=== PATIENT | female | born 1945 | race Caucasian/White ===

== ENCOUNTER 2017-03-05 08:33 | Outpatient (CLI) | payer MEDICARE, OTHER ==
[2017-03-05 08:32] VITALS: BP 164/76
[~2017-03-05 08:33] MED LIST: ACET-812 PO; EPOE1000; FLO0.4C PO; LOSA25TA21 PO; METO50TA16 PO; OMEP-50 PO; SODI650T29 PO; ZOLP10TA5 PO
== END 2017-03-05 09:30 | disposition home or self-care (01) ==
LOC: ORTHO 08:33
PROVIDERS: ATTEND Nurse Practitioner Family
DX: S52.502D Unspecified fracture of the lower end of left radius, subsequent encounter for closed fracture with routine healing (principal); M21.832 Other specified acquired deformities of left forearm; D64.9 Anemia, unspecified; I12.9 Hypertensive chronic kidney disease with stage 1 through stage 4 chronic kidney disease, or unspecified chronic kidney disease; N18.9 Chronic kidney disease, unspecified; Z88.2 Allergy status to sulfonamides; Z88.5 Allergy status to narcotic agent; Z91.15 Patient's noncompliance with renal dialysis; Z99.2 Dependence on renal dialysis; X58.XXXD Exposure to other specified factors, subsequent encounter
CPT/HCPCS: 73110

== ENCOUNTER 2017-06-05 16:05 | Outpatient (CLI) | payer MEDICARE, OTHER | END 2017-06-05 23:59 | disposition home or self-care (01) | LOC: VAS 16:05 | PROVIDERS: ATTEND Family Medicine | DX: M79.89 Other specified soft tissue disorders (principal); R60.0 Localized edema; Z86.718 Personal history of other venous thrombosis and embolism | CPT/HCPCS: 93971 ==

== ENCOUNTER 2017-10-12 10:13 | Emergency (ER) | payer MEDICARE, OTHER ==
[~2017-10-12] VITALS: Ht 162.6 cm; Wt 74.0 kg
[2017-10-12 10:48] LABS: EOSINOPHILS # (AUTO) 0.1 X10'3 (0-0.9); HEMOGLOBIN 10.1 g/dl (12.0-16.0); LYMPHOCYTES # (AUTO) 0.6 X10'3 (1.1-4.8); MEAN CORPUSCULAR HGB CONC 31.7 % (33.0-36.5); MONOCYTES # (AUTO) 0.4 X10'3 (0-0.9); WHITE BLOOD COUNT 4.9 X10'3 (4.5-11.0)
[2017-10-12 10:54] LABS: BASOPHILS % (AUTO) 0.1 % (0-1); EOSINOPHILS % (AUTO) 1.1 % (0-6); HEMATOCRIT 31.9 % (35.0-45.0); LYMPHOCYTES % (AUTO) 11.7 % (21-51); MEAN CORPUSCULAR HEMOGLOBIN 25.9 PG (27.0-31.0); MEAN CORPUSCULAR VOLUME 81.6 FL (78-98); MEAN PLATELET VOLUME 9.4 FL (7.4-10.4); MONOCYTES % (AUTO) 8.6 % (2-12); NEUTROPHILS # (AUTO) 3.8 X10'3 (1.8-7.7); NEUTROPHILS % (AUTO) 78.5 % (42-75); PLATELET COUNT 150 X10'3 (140-440); RED CELL DISTRIBUTION WIDTH 19.5 % (11.5-14.5)
[2017-10-12 10:56] LABS: PROTHROMBIN TIME 10.7 SECONDS (9.0-12.0)
[2017-10-12 11:01] LABS: CLARITY,URINE CLEAR (Clear); COLOR,URINE STRAW (Yellow); GLUCOSE, URINE NEGATIVE (Neg); KETONES,URINE NEGATIVE (Neg); LEUKOCYTE ESTERASE ,URINE NEGATIVE (Neg); NITRITES, URINE NEGATIVE (Neg); OCCULT BLOOD,URINE MODERATE (Neg); PROTEIN,URINE >=300 mg/dl (Neg); UA COLLECTION TYPE CLN CATCH MIDSTREAM; UROBILINOGEN,URINE 0.2 E.U/dL (0.2-1.0)
[2017-10-12 11:02] LABS: ALANINE AMINOTRANSFERASE 11 U/L (12-78); ALBUMIN 3.6 G/DL (3.4-5.0); ALBUMIN/GLOBULIN RATIO 1.1 (1.1-1.5); ALKALINE PHOSPHATASE 140 IU/L (46-116); ANION GAP 15 (8-16); ASPARTATE AMINO TRANSFERASE 17 U/L (10-37); BILIRUBIN,TOTAL 0.6 MG/DL (0.1-1.0); BLOOD UREA NITROGEN 66 MG/DL (7-18); BUN/CREATININE RATIO 8.5 (6.6-38.0); CALCIUM 8.2 MG/DL (8.5-10.1); CHLORIDE 102 MMOL/L (99-107); CREATININE 7.73 MG/DL (0.40-0.90); GLUCOSE 96 MG/DL (70-104); LIPASE 313 U/L (73-393); POTASSIUM 4.1 MMOL/L (3.5-5.1); SODIUM 132 MMOL/L (135-145); TOTAL CARBON DIOXIDE 15.3 MMOL/L (24-32); TOTAL PROTEIN 6.9 G/DL (6.4-8.2); eGFR 5 ML/MIN
[2017-10-12 11:10] LABS: BACTERIA,URINE FEW /HPF (Neg); MUCUS STRANDS FEW /LPF (Neg); RENAL CELLS, URINE FEW /HPF; SQUAMOUS EPITHELIAL CELL,UR FEW /LPF (FEW); WBC CLUMPS,URINE FEW /HPF (NEGATIVE)
[2017-10-12 11:18] LABS: ACANTHOCYTES FEW; ANISOCYTOSIS 2+; PLATELET ESTIMATE NORMAL; POLYCHROMASIA FEW
[2017-10-12 11:19] LABS: POIKILOCYTOSIS FEW
[2017-10-12] MEDS ORDERED: ondansetron/PF 4mg/2ml inj IV ONE ×2 (11:20→11:45)
[2017-10-12] MEDS ORDERED: normal saline 1000ML IV soln IVB ONE (11:45)
[2017-10-12] MEDS ORDERED: morphine 4 MG/ML inj SYRINge IV PRN (11:45)
[2017-10-12] MEDS ORDERED: ONDA4TAB6 PO (12:29)
[2017-10-12 12:48] VITALS: BP 185/85
== END 2017-10-12 12:49 | disposition home or self-care (01) ==
LOC: ER 10:13
DX: R10.9 Unspecified abdominal pain (principal); N18.9 Chronic kidney disease, unspecified; I12.9 Hypertensive chronic kidney disease with stage 1 through stage 4 chronic kidney disease, or unspecified chronic kidney disease; Z88.2 Allergy status to sulfonamides; Z88.5 Allergy status to narcotic agent; Z91.011 Allergy to milk products; Z79.899 Other long term (current) drug therapy; Z88.1 Allergy status to other antibiotic agents; Z99.2 Dependence on renal dialysis; Z90.710 Acquired absence of both cervix and uterus; Z93.2 Ileostomy status
CPT/HCPCS: 36415; 74176; 80053; 81001; 83690; 85025; 85610; 87088; 96374; 96375; 99285; J2270; J2405; J7030

== ENCOUNTER 2017-10-16 14:59 | Inpatient (IN) | payer MEDICARE, OTHER ==
[~2017-10-16] VITALS: Ht 162.6 cm; Wt 79.6 kg
[~2017-10-16 14:59] MED LIST changes: +ONDA4TAB6 PO
[2017-10-16] MEDS ORDERED: ondansetron/PF 4mg/2ml inj IV ONE (17:10)
[2017-10-16] MEDS ORDERED: morphine 4 MG/ML inj SYRINge IV ONE (17:30)
[2017-10-16 18:02] LABS: BASOPHILS % (AUTO) 0.2 % (0-1); HEMATOCRIT 29.1 % (35.0-45.0); HEMOGLOBIN 9.2 g/dl (12.0-16.0); LYMPHOCYTES # (AUTO) 0.8 X10'3 (1.1-4.8); LYMPHOCYTES % (AUTO) 18.7 % (21-51); MEAN CORPUSCULAR HEMOGLOBIN 26.1 PG (27.0-31.0); MEAN CORPUSCULAR HGB CONC 31.8 % (33.0-36.5); MEAN CORPUSCULAR VOLUME 82.3 FL (78-98); MEAN PLATELET VOLUME 8.9 FL (7.4-10.4); MONOCYTES # (AUTO) 0.4 X10'3 (0-0.9); MONOCYTES % (AUTO) 10.5 % (2-12); NEUTROPHILS # (AUTO) 2.8 X10'3 (1.8-7.7); NEUTROPHILS % (AUTO) 69.6 % (42-75); PLATELET COUNT 169 X10'3 (140-440); RED BLOOD COUNT 3.53 X10'6 (4.20-5.60); RED CELL DISTRIBUTION WIDTH 20.4 % (11.5-14.5); WHITE BLOOD COUNT 4.1 X10'3 (4.5-11.0)
[2017-10-16 18:17] LABS: ALANINE AMINOTRANSFERASE 12 U/L (12-78); ALBUMIN 3.3 G/DL (3.4-5.0); ALBUMIN/GLOBULIN RATIO 1.2 (1.1-1.5); ALKALINE PHOSPHATASE 115 IU/L (46-116); ANION GAP 13 (8-16); ASPARTATE AMINO TRANSFERASE 20 U/L (10-37); BILIRUBIN,TOTAL 0.7 MG/DL (0.1-1.0); BLOOD UREA NITROGEN 58 MG/DL (7-18); BUN/CREATININE RATIO 7.1 (6.6-38.0); CALCIUM 7.8 MG/DL (8.5-10.1); CHLORIDE 99 MMOL/L (99-107); CREATININE 8.21 MG/DL (0.40-0.90); GLUCOSE 87 MG/DL (70-104); POTASSIUM 4.4 MMOL/L (3.5-5.1); SODIUM 133 MMOL/L (135-145); TOTAL CARBON DIOXIDE 20.7 MMOL/L (24-32); TOTAL PROTEIN 6.1 G/DL (6.4-8.2); eGFR 5 ML/MIN
[2017-10-16] MEDS ORDERED: morphine 4 MG/ML inj SYRINge IV PRN (19:45)
[2017-10-16] MEDS ORDERED: acetaminophen 325mg tablet PO PRN (19:45)
[2017-10-16] MEDS ORDERED: diphenhydrAMINE 25mg capsule PO PRN (19:45)
[2017-10-16] MEDS ORDERED: acetaminophen 650mg rectal suppository RC PRN (19:45)
[2017-10-16] MEDS ORDERED: mag hydrox/Alum hydrox/simeth 30ml oral suspension PO PRN (19:45)
[2017-10-16] MEDS ORDERED: ZOLPIDEM TARTRATE 10 MG PO PRN (19:55)
[2017-10-16] MEDS: docusate sod 100mg capsule PO SCH (20:00)
[2017-10-16] MEDS: metoprolol tartrate 50mg tablet PO SCH (20:25)
[2017-10-16] MEDS: heparin, porcine 5000 units/ml vial SQ SCH (20:26)
[2017-10-16 21:00] VITALS: BP 214/96
[2017-10-16] MEDS: labetalol 20mg/4ml (5mg/ml) syringe IV PRN (21:14)
[2017-10-16] MEDS: sodium bicarbonate 650mg tablet PO SCH (21:14)
[2017-10-16] MEDS: morphine 4 MG/ML inj SYRINge IV PRN (21:22)
[2017-10-16 23:00] VITALS: BP 132/75
[2017-10-17 03:00] VITALS: BP 166/72
[2017-10-17 06:07] LABS: HEMATOCRIT 27.5 % (35.0-45.0); HEMOGLOBIN 8.7 g/dl (12.0-16.0); MEAN CORPUSCULAR HEMOGLOBIN 25.9 PG (27.0-31.0); MEAN CORPUSCULAR HGB CONC 31.4 % (33.0-36.5); MEAN CORPUSCULAR VOLUME 82.3 FL (78-98); MEAN PLATELET VOLUME 8.3 FL (7.4-10.4); PLATELET COUNT 147 X10'3 (140-440); RED BLOOD COUNT 3.35 X10'6 (4.20-5.60); RED CELL DISTRIBUTION WIDTH 20.2 % (11.5-14.5); WHITE BLOOD COUNT 3.6 X10'3 (4.5-11.0)
[2017-10-17 06:30] VITALS: BP 189/80
[2017-10-17 06:44] LABS: ALANINE AMINOTRANSFERASE 13 U/L (12-78); ALBUMIN 2.7 G/DL (3.4-5.0); ALKALINE PHOSPHATASE 92 IU/L (46-116); ANION GAP 16 (8-16); ASPARTATE AMINO TRANSFERASE 8 U/L (10-37); BILIRUBIN,TOTAL 0.6 MG/DL (0.1-1.0); BLOOD UREA NITROGEN 58 MG/DL (7-18); CALCIUM 7.3 MG/DL (8.5-10.1); CHLORIDE 101 MMOL/L (99-107); CREATININE 8.28 MG/DL (0.40-0.90); GLUCOSE 73 MG/DL (70-104); MAGNESIUM 1.3 MG/DL (1.5-2.4); PHOSPHORUS 4.9 MG/DL (2.3-4.5); POTASSIUM 4.1 MMOL/L (3.5-5.1); SODIUM 136 MMOL/L (135-145); TOTAL CARBON DIOXIDE 18.8 MMOL/L (24-32); TOTAL PROTEIN 5.4 G/DL (6.4-8.2); eGFR 5 ML/MIN
[2017-10-17 07:15] LABS: ANISOCYTOSIS 2+; PLATELET ESTIMATE NORMAL; TOTAL CELLS COUNTED 100
[2017-10-17] MEDS: metoprolol tartrate 50mg tablet PO SCH ×2 (07:31→19:40)
[2017-10-17] MEDS ORDERED: heparin 1,000unit/ml 10ml vial 10 ML IV ONE (07:31)
[2017-10-17] MEDS ORDERED: normal saline 1000ml 250 ML IV PRN (07:31)
[2017-10-17] MEDS: losartan 25mg tablet PO SCH (07:32)
[2017-10-17] MEDS: pantoprazole 40mg Tablet.DR PO SCH (07:32)
[2017-10-17] MEDS: sodium bicarbonate 650mg tablet PO SCH ×3 (07:32→20:48)
[2017-10-17] MEDS: heparin, porcine 5000 units/ml vial SQ SCH ×2 (07:33→19:40)
[2017-10-17] MEDS: morphine 4 MG/ML inj SYRINge IV PRN ×2 (07:34→11:29)
[2017-10-17] MEDS ORDERED: LIDOcaine 1% (10mg/ml) 2ml vial SQ ONE (07:35)
[2017-10-17] MEDS ORDERED: epoetin 20,000 units/ml inj IV ONE (07:35)
[2017-10-17] MEDS: docusate sod 100mg capsule PO SCH ×2 (08:00→19:00)
[2017-10-17 11:00] VITALS: BP 179/81
[2017-10-17] MEDS: labetalol 20mg/4ml (5mg/ml) syringe IV PRN ×3 (11:22→23:47)
[2017-10-17] MEDS: ondansetron/PF 4mg/2ml inj IV PRN (12:55)
[2017-10-17 15:00] VITALS: BP 195/84
[2017-10-17] MEDS: dextrose 5%-normal saline 1,000 ML IV SCH (17:07)
[2017-10-17] MEDS ORDERED: hydrALAZINE 20mg/ml inj. IV ONE (18:26)
[2017-10-17 19:00] VITALS: BP 198/86
[2017-10-17] MEDS ORDERED: labetalol 20mg/4ml (5mg/ml) syringe IV ONE (20:45)
[2017-10-17 23:00] VITALS: BP 184/83
[2017-10-18] VITALS (11 sets, daily range): BP systolic 164–216; BP diastolic 66–104
[2017-10-18] MEDS ORDERED: labetalol 20mg/4ml (5mg/ml) syringe IV ONE (02:20)
[2017-10-18] MEDS ORDERED: nitroGLYCERIN 1gm ointment UD TP ONE (02:20)
[2017-10-18] MEDS: hydrALAZINE 25 MG tablet PO SCH ×3 (02:33→16:00)
[2017-10-18] MEDS: ondansetron/PF 4mg/2ml inj IV PRN ×2 (04:49→13:06)
[2017-10-18] MEDS: morphine 4 MG/ML inj SYRINge IV PRN (04:52)
[2017-10-18 07:11] LABS: HEMATOCRIT 28.7 % (35.0-45.0); MEAN CORPUSCULAR HEMOGLOBIN 26.1 PG (27.0-31.0); MEAN CORPUSCULAR HGB CONC 31.4 % (33.0-36.5); MEAN PLATELET VOLUME 9.1 FL (7.4-10.4); PLATELET COUNT 142 X10'3 (140-440); RED BLOOD COUNT 3.46 X10'6 (4.20-5.60); RED CELL DISTRIBUTION WIDTH 20.3 % (11.5-14.5); WHITE BLOOD COUNT 3.3 X10'3 (4.5-11.0)
[2017-10-18] MEDS: pantoprazole 40mg Tablet.DR PO SCH (07:30)
[2017-10-18] MEDS: nitroGLYCERIN 1gm ointment UD TP SCH ×2 (07:34→20:25)
[2017-10-18] MEDS: heparin, porcine 5000 units/ml vial SQ SCH ×2 (07:35→20:26)
[2017-10-18 07:40] LABS: ANISOCYTOSIS 2+; PLATELET ESTIMATE DECREASED; POLYCHROMASIA 1+; TOTAL CELLS COUNTED 100
[2017-10-18 07:41] LABS: HYPOCHROMASIA 1+
[2017-10-18] MEDS ORDERED: LIDOcaine 1% (10mg/ml) 2ml vial SQ ONE (08:00)
[2017-10-18] MEDS: losartan 25mg tablet PO SCH (08:00)
[2017-10-18] MEDS: metoprolol tartrate 50mg tablet PO SCH ×2 (08:00→20:25)
[2017-10-18] MEDS ORDERED: normal saline 1000ml 250 ML IV PRN (08:00)
[2017-10-18] MEDS: sodium bicarbonate 650mg tablet PO SCH ×3 (08:00→20:25)
[2017-10-18] MEDS: docusate sod 100mg capsule PO SCH ×2 (08:00→19:17)
[2017-10-18] MEDS ORDERED: epoetin 20,000 units/ml inj IV ONE (08:00)
[2017-10-18] MEDS ORDERED: heparin 1,000unit/ml 10ml vial 10 ML IV ONE (08:00)
[2017-10-18 08:07] LABS: ALANINE AMINOTRANSFERASE 12 U/L (12-78); ALBUMIN 2.8 G/DL (3.4-5.0); ALKALINE PHOSPHATASE 93 IU/L (46-116); ANION GAP 12 (8-16); ASPARTATE AMINO TRANSFERASE 12 U/L (10-37); BILIRUBIN,TOTAL 0.6 MG/DL (0.1-1.0); BLOOD UREA NITROGEN 24 MG/DL (7-18); BUN/CREATININE RATIO 4.7 (6.6-38.0); CALCIUM 7.1 MG/DL (8.5-10.1); CHLORIDE 102 MMOL/L (99-107); CREATININE 5.11 MG/DL (0.40-0.90); GLUCOSE 127 MG/DL (70-104); MAGNESIUM 1.5 MG/DL (1.5-2.4); PHOSPHORUS 3.4 MG/DL (2.3-4.5); POTASSIUM 3.7 MMOL/L (3.5-5.1); SODIUM 138 MMOL/L (135-145); TOTAL CARBON DIOXIDE 23.9 MMOL/L (24-32); TOTAL PROTEIN 5.5 G/DL (6.4-8.2); eGFR 8 ML/MIN
[2017-10-18] MEDS ORDERED: proMETHazine 6.25 mg/5 ml UD oral syrup PO PRN (08:55)
[2017-10-18] MEDS: metoclopramide 5 mg/ml inj IV PRN (10:17)
[2017-10-18] MEDS: labetalol 20mg/4ml (5mg/ml) syringe IV PRN ×2 (10:28→17:34)
[2017-10-18] MEDS: dextrose 5%-normal saline 1,000 ML IV SCH ×3 (11:15→19:01)
[2017-10-18 11:17] LABS: HBSAG SCREEN Negative (Negative)
[2017-10-18] MEDS ORDERED: hydrALAZINE 20mg/ml inj. IV PRN (13:35)
[2017-10-18] MEDS: proCHLORperazine 10 MG/2 ml inj IV PRN (16:16)
[2017-10-19] MEDS: hydrALAZINE 25 MG tablet PO SCH ×3 (00:44→16:42)
[2017-10-19 03:00] VITALS: BP 208/90
[2017-10-19] MEDS: labetalol 20mg/4ml (5mg/ml) syringe IV PRN ×2 (03:10→12:33)
[2017-10-19 05:55] LABS: BASOPHILS % (AUTO) 0.7 % (0-1); EOSINOPHILS % (AUTO) 0.1 % (0-6); HEMATOCRIT 29.6 % (35.0-45.0); HEMOGLOBIN 9.3 g/dl (12.0-16.0); LYMPHOCYTES # (AUTO) 0.7 X10'3 (1.1-4.8); LYMPHOCYTES % (AUTO) 14.5 % (21-51); MEAN CORPUSCULAR HEMOGLOBIN 26.4 PG (27.0-31.0); MEAN CORPUSCULAR HGB CONC 31.5 % (33.0-36.5); MEAN CORPUSCULAR VOLUME 83.8 FL (78-98); MEAN PLATELET VOLUME 8.6 FL (7.4-10.4); MONOCYTES # (AUTO) 0.5 X10'3 (0-0.9); MONOCYTES % (AUTO) 9.9 % (2-12); NEUTROPHILS # (AUTO) 3.5 X10'3 (1.8-7.7); NEUTROPHILS % (AUTO) 74.8 % (42-75); PLATELET COUNT 129 X10'3 (140-440); RED BLOOD COUNT 3.53 X10'6 (4.20-5.60); RED CELL DISTRIBUTION WIDTH 18.8 % (11.5-14.5); WHITE BLOOD COUNT 4.7 X10'3 (4.5-11.0)
[2017-10-19 06:32] LABS: ALANINE AMINOTRANSFERASE 15 U/L (12-78); ALBUMIN 2.8 G/DL (3.4-5.0); ALBUMIN/GLOBULIN RATIO 1.1 (1.1-1.5); ALKALINE PHOSPHATASE 92 IU/L (46-116); ANION GAP 10 (8-16); ASPARTATE AMINO TRANSFERASE 15 U/L (10-37); BILIRUBIN,TOTAL 0.6 MG/DL (0.1-1.0); BLOOD UREA NITROGEN 10 MG/DL (7-18); BUN/CREATININE RATIO 3.1 (6.6-38.0); CALCIUM 7.3 MG/DL (8.5-10.1); CHLORIDE 102 MMOL/L (99-107); CREATININE 3.24 MG/DL (0.40-0.90); GLUCOSE 130 MG/DL (70-104); MAGNESIUM 1.6 MG/DL (1.5-2.4); PHOSPHORUS 2.8 MG/DL (2.3-4.5); POTASSIUM 3.8 MMOL/L (3.5-5.1); SODIUM 138 MMOL/L (135-145); TOTAL CARBON DIOXIDE 25.6 MMOL/L (24-32); TOTAL PROTEIN 5.4 G/DL (6.4-8.2); eGFR 14 ML/MIN
[2017-10-19 07:00] VITALS: BP 188/88
[2017-10-19] MEDS: proCHLORperazine 10 MG/2 ml inj IV PRN (07:51)
[2017-10-19] MEDS: losartan 25mg tablet PO SCH (07:52)
[2017-10-19] MEDS: heparin, porcine 5000 units/ml vial SQ SCH ×2 (07:52→19:46)
[2017-10-19] MEDS: metoprolol tartrate 50mg tablet PO SCH ×2 (07:52→19:43)
[2017-10-19] MEDS: pantoprazole 40mg Tablet.DR PO SCH (07:52)
[2017-10-19] MEDS: sodium bicarbonate 650mg tablet PO SCH ×3 (07:52→19:45)
[2017-10-19] MEDS: nitroGLYCERIN 1gm ointment UD TP SCH ×2 (07:53→19:43)
[2017-10-19] MEDS: docusate sod 100mg capsule PO SCH ×3 (07:53→19:49)
[2017-10-19 11:00] VITALS: BP 200/98
[2017-10-19] MEDS: metoclopramide 5 mg/ml inj IV PRN (12:33)
[2017-10-19] MEDS: dextrose 5%-normal saline 1,000 ML IV SCH ×2 (12:56→19:35)
[2017-10-19 15:00] VITALS: BP 189/94
[2017-10-19 18:00] VITALS: BP 162/78
[2017-10-19] MEDS: acetaminophen 325mg tablet PO PRN (21:48)
[2017-10-19 22:00] VITALS: BP 171/82
[2017-10-20] MEDS: hydrALAZINE 25 MG tablet PO SCH ×4 (00:13→23:11)
[2017-10-20 02:00] VITALS: BP 170/78
[2017-10-20] MEDS: dextrose 5%-normal saline 1,000 ML IV SCH ×2 (05:41→18:56)
[2017-10-20 06:49] LABS: EOSINOPHILS % (AUTO) 0 % (0-6); HEMATOCRIT 30.9 % (35.0-45.0); HEMOGLOBIN 9.5 g/dl (12.0-16.0); LYMPHOCYTES # (AUTO) 0.8 X10'3 (1.1-4.8); MEAN CORPUSCULAR HEMOGLOBIN 26.1 PG (27.0-31.0); MEAN CORPUSCULAR HGB CONC 30.8 % (33.0-36.5); MEAN CORPUSCULAR VOLUME 84.9 FL (78-98); MONOCYTES # (AUTO) 0.5 X10'3 (0-0.9); MONOCYTES % (AUTO) 9.8 % (2-12); NEUTROPHILS # (AUTO) 3.4 X10'3 (1.8-7.7); NEUTROPHILS % (AUTO) 71.2 % (42-75); PLATELET COUNT 120 X10'3 (140-440); RED BLOOD COUNT 3.64 X10'6 (4.20-5.60); WHITE BLOOD COUNT 4.7 X10'3 (4.5-11.0)
[2017-10-20 07:00] VITALS: BP 185/79
[2017-10-20 07:09] LABS: ALANINE AMINOTRANSFERASE 24 U/L (12-78); ALBUMIN 2.9 G/DL (3.4-5.0); ALBUMIN/GLOBULIN RATIO 1.1 (1.1-1.5); ALKALINE PHOSPHATASE 95 IU/L (46-116); ANION GAP 9 (8-16); ASPARTATE AMINO TRANSFERASE 28 U/L (10-37); BILIRUBIN,TOTAL 0.7 MG/DL (0.1-1.0); BLOOD UREA NITROGEN 15 MG/DL (7-18); BUN/CREATININE RATIO 3.7 (6.6-38.0); CALCIUM 7.1 MG/DL (8.5-10.1); CHLORIDE 103 MMOL/L (99-107); GLUCOSE 109 MG/DL (70-104); MAGNESIUM 1.5 MG/DL (1.5-2.4); PHOSPHORUS 3.2 MG/DL (2.3-4.5); SODIUM 137 MMOL/L (135-145); TOTAL CARBON DIOXIDE 25.3 MMOL/L (24-32); TOTAL PROTEIN 5.6 G/DL (6.4-8.2); eGFR 11 ML/MIN
[2017-10-20 07:17] LABS: POTASSIUM 3.8 MMOL/L (3.5-5.1)
[2017-10-20] MEDS ORDERED: LIDOcaine 1% (10mg/ml) 2ml vial SQ ONE (08:00)
[2017-10-20] MEDS: heparin, porcine 5000 units/ml vial SQ SCH ×2 (08:00→19:48)
[2017-10-20] MEDS ORDERED: heparin 1,000unit/ml 10ml vial 10 ML IV ONE (08:00)
[2017-10-20] MEDS ORDERED: epoetin 20,000 units/ml inj IV ONE (08:00)
[2017-10-20] MEDS: docusate sod 100mg capsule PO SCH ×2 (08:00→19:47)
[2017-10-20] MEDS: losartan 25mg tablet PO SCH (08:51)
[2017-10-20] MEDS: sodium bicarbonate 650mg tablet PO SCH ×3 (08:51→20:06)
[2017-10-20] MEDS: metoprolol tartrate 50mg tablet PO SCH ×2 (08:51→19:48)
[2017-10-20] MEDS: pantoprazole 40mg Tablet.DR PO SCH (08:51)
[2017-10-20] MEDS: nitroGLYCERIN 1gm ointment UD TP SCH ×2 (08:52→19:48)
[2017-10-20 11:00] VITALS: BP 137/74
[2017-10-20 15:00] VITALS: BP 187/84
[2017-10-20 18:40] VITALS: BP 190/84
[2017-10-20 23:00] VITALS: BP 182/89
[2017-10-20] MEDS: zolpidem 5mg tablet PO PRN (23:11)
[2017-10-20] MEDS: acetaminophen 325mg tablet PO PRN (23:11)
[2017-10-21] MEDS: dextrose 5%-normal saline 1,000 ML IV SCH ×2 (02:28→17:07)
[2017-10-21 03:00] VITALS: BP 181/96
[2017-10-21] MEDS: morphine 4 MG/ML inj SYRINge IV PRN (03:22)
[2017-10-21 06:26] LABS: BASOPHILS % (AUTO) 0 % (0-1); EOSINOPHILS % (AUTO) 0.5 % (0-6); HEMATOCRIT 30.2 % (35.0-45.0); HEMOGLOBIN 9.3 g/dl (12.0-16.0); LYMPHOCYTES # (AUTO) 0.7 X10'3 (1.1-4.8); LYMPHOCYTES % (AUTO) 13.4 % (21-51); MEAN CORPUSCULAR HEMOGLOBIN 25.8 PG (27.0-31.0); MEAN CORPUSCULAR HGB CONC 30.7 % (33.0-36.5); MEAN CORPUSCULAR VOLUME 84.2 FL (78-98); MEAN PLATELET VOLUME 8.2 FL (7.4-10.4); MONOCYTES # (AUTO) 0.7 X10'3 (0-0.9); MONOCYTES % (AUTO) 13.6 % (2-12); NEUTROPHILS # (AUTO) 3.7 X10'3 (1.8-7.7); NEUTROPHILS % (AUTO) 72.5 % (42-75); PLATELET COUNT 100 X10'3 (140-440); RED BLOOD COUNT 3.59 X10'6 (4.20-5.60); RED CELL DISTRIBUTION WIDTH 21.2 % (11.5-14.5); WHITE BLOOD COUNT 5.1 X10'3 (4.5-11.0)
[2017-10-21 06:49] LABS: ALANINE AMINOTRANSFERASE 24 U/L (12-78); ALBUMIN 2.6 G/DL (3.4-5.0); ALKALINE PHOSPHATASE 96 IU/L (46-116); ANION GAP 6 (8-16); ASPARTATE AMINO TRANSFERASE 23 U/L (10-37); BILIRUBIN,TOTAL 0.8 MG/DL (0.1-1.0); BLOOD UREA NITROGEN 9 MG/DL (7-18); CHLORIDE 103 MMOL/L (99-107); CREATININE 3.04 MG/DL (0.40-0.90); GLUCOSE 128 MG/DL (70-104); MAGNESIUM 1.4 MG/DL (1.5-2.4); PHOSPHORUS 2.6 MG/DL (2.3-4.5); POTASSIUM 3.9 MMOL/L (3.5-5.1); SODIUM 136 MMOL/L (135-145); TOTAL CARBON DIOXIDE 27.2 MMOL/L (24-32); TOTAL PROTEIN 5.2 G/DL (6.4-8.2); eGFR 15 ML/MIN
[2017-10-21 06:55] LABS: ANISOCYTOSIS 3+; HYPOCHROMASIA 1+; MICROCYTOSIS 1+; PLATELET ESTIMATE DECREASED; POLYCHROMASIA 1+
[2017-10-21 07:00] VITALS: BP 213/118
[2017-10-21] MEDS: pantoprazole 40mg Tablet.DR PO SCH (07:26)
[2017-10-21] MEDS: hydrALAZINE 25 MG tablet PO SCH ×3 (07:28→23:17)
[2017-10-21] MEDS: metoprolol tartrate 50mg tablet PO SCH ×2 (07:28→19:11)
[2017-10-21] MEDS: losartan 25mg tablet PO SCH (07:28)
[2017-10-21] MEDS: sodium bicarbonate 650mg tablet PO SCH ×3 (07:28→20:28)
[2017-10-21] MEDS: proCHLORperazine 10 MG/2 ml inj IV PRN (07:29)
[2017-10-21] MEDS: heparin, porcine 5000 units/ml vial SQ SCH ×2 (07:29→20:28)
[2017-10-21] MEDS: docusate sod 100mg capsule PO SCH ×2 (08:00→20:00)
[2017-10-21] MEDS: nitroGLYCERIN 1gm ointment UD TP SCH ×2 (08:00→20:00)
[2017-10-21 11:00] VITALS: BP 187/78
[2017-10-21 15:00] VITALS: BP 191/96
[2017-10-21 18:15] VITALS: BP 191/88
[2017-10-21] MEDS: amLODIPine 5mg tablet PO SCH (19:10)
[2017-10-21 22:15] VITALS: BP 187/90
[2017-10-21] MEDS: zolpidem 5mg tablet PO PRN (23:21)
[2017-10-22 02:10] VITALS: BP 167/81
[2017-10-22] MEDS: dextrose 5%-normal saline 1,000 ML IV SCH (03:21)
[2017-10-22 06:50] LABS: BASOPHILS % (AUTO) 0 % (0-1); EOSINOPHILS # (AUTO) 0.1 X10'3 (0-0.9); HEMATOCRIT 34.4 % (35.0-45.0); HEMOGLOBIN 10.4 g/dl (12.0-16.0); LYMPHOCYTES # (AUTO) 0.9 X10'3 (1.1-4.8); NEUTROPHILS # (AUTO) 3.9 X10'3 (1.8-7.7); PLATELET COUNT 103 X10'3 (140-440)
[2017-10-22 07:01] LABS: PARTIAL THROMBOPLASTIN TIME 23 SECONDS (22-32); PROTHROMBIN TIME 10.4 SECONDS (9.0-12.0)
[2017-10-22 07:03] LABS: ALANINE AMINOTRANSFERASE 31 U/L (12-78); ALBUMIN 2.9 G/DL (3.4-5.0); ALKALINE PHOSPHATASE 101 IU/L (46-116); ANION GAP 8 (8-16); ASPARTATE AMINO TRANSFERASE 22 U/L (10-37); BILIRUBIN,TOTAL 0.7 MG/DL (0.1-1.0); BLOOD UREA NITROGEN 14 MG/DL (7-18); BUN/CREATININE RATIO 3.7 (6.6-38.0); CALCIUM 7.5 MG/DL (8.5-10.1); CHLORIDE 103 MMOL/L (99-107); CREATININE 3.81 MG/DL (0.40-0.90); GLUCOSE 109 MG/DL (70-104); POTASSIUM 3.5 MMOL/L (3.5-5.1); SODIUM 137 MMOL/L (135-145); TOTAL CARBON DIOXIDE 26.4 MMOL/L (24-32); TOTAL PROTEIN 5.7 G/DL (6.4-8.2); eGFR 12 ML/MIN
[2017-10-22 07:04] LABS: EOSINOPHILS % (AUTO) 1.2 % (0-6); LYMPHOCYTES % (AUTO) 16.6 % (21-51); MEAN CORPUSCULAR HGB CONC 30.3 % (33.0-36.5); MEAN CORPUSCULAR VOLUME 85.8 FL (78-98); MEAN PLATELET VOLUME 9.1 FL (7.4-10.4); MONOCYTES # (AUTO) 0.7 X10'3 (0-0.9); MONOCYTES % (AUTO) 12.1 % (2-12); NEUTROPHILS % (AUTO) 70.1 % (42-75); RED CELL DISTRIBUTION WIDTH 20.6 % (11.5-14.5); WHITE BLOOD COUNT 5.6 X10'3 (4.5-11.0)
[2017-10-22 07:17] VITALS: BP 162/78
[2017-10-22 07:18] LABS: PLATELET ESTIMATE DECREASED
[2017-10-22 07:19] LABS: ANISOCYTOSIS 3+; ELLIPTOCYTES FEW; SCHISTOCYTES FEW
[2017-10-22] MEDS: hydrALAZINE 25 MG tablet PO SCH ×3 (08:00→23:53)
[2017-10-22] MEDS ORDERED: heparin 1,000unit/ml 10ml vial 10 ML IV ONE (08:00)
[2017-10-22] MEDS ORDERED: epoetin 20,000 units/ml inj IV ONE (08:00)
[2017-10-22] MEDS: metoprolol tartrate 50mg tablet PO SCH ×3 (08:00→19:49)
[2017-10-22] MEDS: losartan 25mg tablet PO SCH ×2 (08:00→10:59)
[2017-10-22] MEDS ORDERED: normal saline 1000ml 250 ML IV PRN (08:00)
[2017-10-22] MEDS: amLODIPine 5mg tablet PO SCH ×2 (08:00→11:11)
[2017-10-22] MEDS ORDERED: LIDOcaine 1% (10mg/ml) 2ml vial ONE (09:36)
[2017-10-22] MEDS: docusate sod 100mg capsule PO SCH ×2 (10:52→19:54)
[2017-10-22] MEDS: sodium bicarbonate 650mg tablet PO SCH ×3 (10:52→21:46)
[2017-10-22] MEDS: pantoprazole 40mg Tablet.DR PO SCH (10:58)
[2017-10-22] MEDS: nitroGLYCERIN 1gm ointment UD TP SCH ×2 (10:59→19:51)
[2017-10-22 11:00] VITALS: BP 202/96
[2017-10-22 15:00] VITALS: BP 156/83
[2017-10-22] MEDS: heparin, porcine 5000 units/ml vial SQ SCH ×2 (15:26→19:48)
[2017-10-22] MEDS ORDERED: acyclovir 200 MG capsule PO ONE (17:45)
[2017-10-22 18:00] VITALS: BP 184/87
[2017-10-22 22:00] VITALS: BP 168/80
[2017-10-22] MEDS: zolpidem 5mg tablet PO PRN (23:56)
[2017-10-23 02:00] VITALS: BP 171/75
[2017-10-23 05:33] LABS: BASOPHILS % (AUTO) 0 % (0-1); EOSINOPHILS % (AUTO) 0 % (0-6); HEMATOCRIT 33.7 % (35.0-45.0); HEMOGLOBIN 10.4 g/dl (12.0-16.0); LYMPHOCYTES % (AUTO) 21.6 % (21-51); MEAN CORPUSCULAR HGB CONC 30.9 % (33.0-36.5); MEAN CORPUSCULAR VOLUME 84.4 FL (78-98); MEAN PLATELET VOLUME 9.9 FL (7.4-10.4); MONOCYTES # (AUTO) 0.7 X10'3 (0-0.9); MONOCYTES % (AUTO) 14.1 % (2-12); NEUTROPHILS # (AUTO) 3.1 X10'3 (1.8-7.7); NEUTROPHILS % (AUTO) 64.3 % (42-75); PLATELET COUNT 91 X10'3 (140-440); RED BLOOD COUNT 3.99 X10'6 (4.20-5.60); RED CELL DISTRIBUTION WIDTH 20.9 % (11.5-14.5); WHITE BLOOD COUNT 4.9 X10'3 (4.5-11.0)
[2017-10-23 05:52] LABS: ALANINE AMINOTRANSFERASE 24 U/L (12-78); ALBUMIN 2.7 G/DL (3.4-5.0); ALKALINE PHOSPHATASE 106 IU/L (46-116); ANION GAP 4 (8-16); ASPARTATE AMINO TRANSFERASE 23 U/L (10-37); BILIRUBIN,TOTAL 0.8 MG/DL (0.1-1.0); BLOOD UREA NITROGEN 10 MG/DL (7-18); BUN/CREATININE RATIO 3.4 (6.6-38.0); CHLORIDE 101 MMOL/L (99-107); CREATININE 2.94 MG/DL (0.40-0.90); GLUCOSE 95 MG/DL (70-104); MAGNESIUM 1.6 MG/DL (1.5-2.4); PHOSPHORUS 2.5 MG/DL (2.3-4.5); POTASSIUM 3.1 MMOL/L (3.5-5.1); SODIUM 135 MMOL/L (135-145); TOTAL CARBON DIOXIDE 29.8 MMOL/L (24-32); TOTAL PROTEIN 5.4 G/DL (6.4-8.2); eGFR 16 ML/MIN
[2017-10-23 06:00] VITALS: BP 186/91
[2017-10-23 07:18] LABS: ANISOCYTOSIS 3+; ELLIPTOCYTES FEW; HYPOCHROMASIA 1+; PLATELET ESTIMATE DECREASED; TEAR DROP CELLS FEW
[2017-10-23] MEDS: amLODIPine 5mg tablet PO SCH (07:55)
[2017-10-23] MEDS: hydrALAZINE 25 MG tablet PO SCH ×2 (07:55→17:13)
[2017-10-23] MEDS: acyclovir 200 MG capsule PO SCH (07:55)
[2017-10-23] MEDS: docusate sod 100mg capsule PO SCH ×2 (07:55→20:00)
[2017-10-23] MEDS: pantoprazole 40mg Tablet.DR PO SCH (07:55)
[2017-10-23] MEDS: losartan 25mg tablet PO SCH (07:55)
[2017-10-23] MEDS: sodium bicarbonate 650mg tablet PO SCH ×3 (07:56→20:34)
[2017-10-23] MEDS: heparin, porcine 5000 units/ml vial SQ SCH ×2 (07:56→20:00)
[2017-10-23] MEDS: nitroGLYCERIN 1gm ointment UD TP SCH ×2 (07:57→20:35)
[2017-10-23] MEDS ORDERED: metoprolol tartrate 50mg tablet PO SCH (08:00)
[2017-10-23 11:00] VITALS: BP 157/72
[2017-10-23 15:00] VITALS: BP 166/76
[2017-10-23 19:00] VITALS: BP 160/66
[2017-10-23] MEDS: metoprolol tartrate 25mg tablet PO SCH (20:34)
[2017-10-23 23:00] VITALS: BP 171/78
[2017-10-24] MEDS: hydrALAZINE 25 MG tablet PO SCH ×2 (00:35→07:26)
[2017-10-24] MEDS ORDERED: zolpidem 5mg tablet PO PRN (01:10)
[2017-10-24 03:00] VITALS: BP 156/73
[2017-10-24] MEDS: acetaminophen 325mg tablet PO PRN (05:47)
[2017-10-24 06:00] VITALS: BP 173/80
[2017-10-24] MEDS ORDERED: ACYC200C PO (06:33)
[2017-10-24] MEDS: docusate sod 100mg capsule PO SCH (06:46)
[2017-10-24 06:59] LABS: BASOPHILS % (AUTO) 0 % (0-1); EOSINOPHILS % (AUTO) 0.5 % (0-6); HEMATOCRIT 32.8 % (35.0-45.0); HEMOGLOBIN 10.4 g/dl (12.0-16.0); LYMPHOCYTES # (AUTO) 1.1 X10'3 (1.1-4.8); MEAN CORPUSCULAR HEMOGLOBIN 27.2 PG (27.0-31.0); MEAN CORPUSCULAR HGB CONC 31.8 % (33.0-36.5); MEAN CORPUSCULAR VOLUME 85.6 FL (78-98); MEAN PLATELET VOLUME 9.4 FL (7.4-10.4); MONOCYTES # (AUTO) 0.5 X10'3 (0-0.9); MONOCYTES % (AUTO) 10.8 % (2-12); NEUTROPHILS # (AUTO) 3.2 X10'3 (1.8-7.7); NEUTROPHILS % (AUTO) 66.7 % (42-75); PLATELET COUNT 105 X10'3 (140-440); RED BLOOD COUNT 3.83 X10'6 (4.20-5.60); RED CELL DISTRIBUTION WIDTH 20.6 % (11.5-14.5); WHITE BLOOD COUNT 4.8 X10'3 (4.5-11.0)
[2017-10-24 07:25] LABS: ALANINE AMINOTRANSFERASE 22 U/L (12-78); ALBUMIN 2.7 G/DL (3.4-5.0); ALBUMIN/GLOBULIN RATIO 1.1 (1.1-1.5); ALKALINE PHOSPHATASE 102 IU/L (46-116); ANION GAP 9 (8-16); ASPARTATE AMINO TRANSFERASE 24 U/L (10-37); BILIRUBIN,TOTAL 0.7 MG/DL (0.1-1.0); BLOOD UREA NITROGEN 16 MG/DL (7-18); BUN/CREATININE RATIO 4.2 (6.6-38.0); CALCIUM 7.9 MG/DL (8.5-10.1); CHLORIDE 100 MMOL/L (99-107); CREATININE 3.83 MG/DL (0.40-0.90); GLUCOSE 94 MG/DL (70-104); MAGNESIUM 1.4 MG/DL (1.5-2.4); PHOSPHORUS 3.1 MG/DL (2.3-4.5); POTASSIUM 3.2 MMOL/L (3.5-5.1); SODIUM 135 MMOL/L (135-145); TOTAL CARBON DIOXIDE 26.5 MMOL/L (24-32); TOTAL PROTEIN 5.2 G/DL (6.4-8.2); eGFR 12 ML/MIN
[2017-10-24] MEDS: heparin, porcine 5000 units/ml vial SQ SCH (07:26)
[2017-10-24] MEDS: pantoprazole 40mg Tablet.DR PO SCH (07:26)
[2017-10-24] MEDS: nitroGLYCERIN 1gm ointment UD TP SCH (07:26)
[2017-10-24] MEDS: sodium bicarbonate 650mg tablet PO SCH ×2 (07:26→13:29)
[2017-10-24] MEDS: losartan 25mg tablet PO SCH (07:26)
[2017-10-24] MEDS: acyclovir 200 MG capsule PO SCH (07:26)
[2017-10-24] MEDS: metoprolol tartrate 25mg tablet PO SCH (07:27)
[2017-10-24] MEDS: amLODIPine 5mg tablet PO SCH (07:27)
[2017-10-24 11:00] VITALS: BP 166/77
== END 2017-10-24 15:59 | disposition home health service (06) | DRG 682 ==
LOC: ER 14:59 → PCU 3S 19:45
PROC: 5A1D70Z Performance of Urinary Filtration, Intermittent, Less than 6 Hours Per Day (ICD-10-PCS; 2017-10-17)
PROC: 5A1D70Z Performance of Urinary Filtration, Intermittent, Less than 6 Hours Per Day (ICD-10-PCS; 2017-10-18)
PROC: 5A1D70Z Performance of Urinary Filtration, Intermittent, Less than 6 Hours Per Day (ICD-10-PCS; 2017-10-20)
PROC: 5A1D70Z Performance of Urinary Filtration, Intermittent, Less than 6 Hours Per Day (ICD-10-PCS; principal; 2017-10-22)
DX: I12.0 Hypertensive chronic kidney disease with stage 5 chronic kidney disease or end stage renal disease (principal); N18.6 End stage renal disease; E87.2 Acidosis; R79.89 Other specified abnormal findings of blood chemistry; B02.9 Zoster without complications; Z90.710 Acquired absence of both cervix and uterus; Z99.2 Dependence on renal dialysis; Z88.1 Allergy status to other antibiotic agents; Z91.011 Allergy to milk products; Z88.5 Allergy status to narcotic agent; Z88.2 Allergy status to sulfonamides; Z91.018 Allergy to other foods; Z93.2 Ileostomy status; Z79.899 Other long term (current) drug therapy
CPT/HCPCS: 36415; 71045; 80053; 83735; 84100; 85025; 85610; 85730; 87070; 87340; 96374; 96375; 99285; A4353; A6257; A6258; A6402; G0257; J0360; J0780; J0885; J1644; J2150; J2270; J2405; J2765; J3490; J7030; J7042; Q0163; Q0169

== ENCOUNTER 2017-11-04 21:16 | Emergency (ER) | payer MEDICARE, OTHER ==
[~2017-11-04] VITALS: Ht 162.6 cm; Wt 71.0 kg
[~2017-11-04 21:16] MED LIST changes: -ACET-812 PO; +ACYC200C PO; +ASPI-1265 PO; -FLO0.4C PO; +LOSA25TA12 PO; -LOSA25TA21 PO; -ONDA4TAB6 PO
[2017-11-04 21:42] LABS: BASOPHILS % (AUTO) 0 % (0-1); EOSINOPHILS % (AUTO) 0.5 % (0-6); HEMATOCRIT 33.1 % (35.0-45.0); HEMOGLOBIN 10.3 g/dl (12.0-16.0); LYMPHOCYTES # (AUTO) 1.3 X10'3 (1.1-4.8); LYMPHOCYTES % (AUTO) 40.8 % (21-51); MEAN CORPUSCULAR HGB CONC 31.1 % (33.0-36.5); MEAN CORPUSCULAR VOLUME 83.7 FL (78-98); MEAN PLATELET VOLUME 9.4 FL (7.4-10.4); MONOCYTES # (AUTO) 0.4 X10'3 (0-0.9); NEUTROPHILS # (AUTO) 1.5 X10'3 (1.8-7.7); NEUTROPHILS % (AUTO) 46.7 % (42-75); PLATELET COUNT 166 X10'3 (140-440); RED BLOOD COUNT 3.95 X10'6 (4.20-5.60); RED CELL DISTRIBUTION WIDTH 19.7 % (11.5-14.5); WHITE BLOOD COUNT 3.3 X10'3 (4.5-11.0)
[2017-11-04 21:52] LABS: PARTIAL THROMBOPLASTIN TIME 23 SECONDS (22-32); PROTHROMBIN TIME 10.2 SECONDS (9.0-12.0)
[2017-11-04 22:01] LABS: ALANINE AMINOTRANSFERASE 31 U/L (12-78); ALBUMIN 3.1 G/DL (3.4-5.0); ALBUMIN/GLOBULIN RATIO 1.1 (1.1-1.5); ALKALINE PHOSPHATASE 119 IU/L (46-116); ANION GAP 7 (8-16); ASPARTATE AMINO TRANSFERASE 25 U/L (10-37); BILIRUBIN,TOTAL 0.6 MG/DL (0.1-1.0); BLOOD UREA NITROGEN 13 MG/DL (7-18); BUN/CREATININE RATIO 3.4 (6.6-38.0); CALCIUM 8.1 MG/DL (8.5-10.1); CHLORIDE 97 MMOL/L (99-107); CREATININE 3.85 MG/DL (0.40-0.90); GLUCOSE 104 MG/DL (70-104); POTASSIUM 3.6 MMOL/L (3.5-5.1); SODIUM 134 MMOL/L (135-145); TOTAL CARBON DIOXIDE 29.7 MMOL/L (24-32); TOTAL PROTEIN 5.9 G/DL (6.4-8.2); eGFR 11 ML/MIN
[2017-11-04 22:04] LABS: TROPONIN I < 0.04 NG/ML (0.0-0.05)
[2017-11-04 22:12] LABS: TOTAL CELLS COUNTED 100
[2017-11-04 22:13] LABS: ANISOCYTOSIS 2+; PLATELET ESTIMATE NORMAL
[2017-11-04 22:15] LABS: MICROCYTOSIS 1+
[2017-11-04 22:16] LABS: ELLIPTOCYTES 1+; SCHISTOCYTES FEW; SPHEROCYTES 1+; TARGET CELLS 1+; TEAR DROP CELLS 1+
[2017-11-04 23:39] VITALS: BP 155/66
== END 2017-11-04 23:42 | disposition home or self-care (01) ==
LOC: ER 21:16
DX: I12.0 Hypertensive chronic kidney disease with stage 5 chronic kidney disease or end stage renal disease (principal); N18.6 End stage renal disease; R20.2 Paresthesia of skin; Z99.2 Dependence on renal dialysis; Z90.710 Acquired absence of both cervix and uterus; Z88.6 Allergy status to analgesic agent; Z88.1 Allergy status to other antibiotic agents; Z88.8 Allergy status to other drugs, medicaments and biological substances; Z91.018 Allergy to other foods; Z79.82 Long term (current) use of aspirin
CPT/HCPCS: 36415; 70450; 71045; 80053; 84484; 85025; 85610; 85730; 93005; 99285

== ENCOUNTER 2018-03-26 03:21 | Emergency (ER) | payer MEDICARE, OTHER ==
[~2018-03-26] VITALS: Ht 157.5 cm; Wt 85.0 kg
[~2018-03-26 03:21] MED LIST changes: -ASPI-1265 PO; -LOSA25TA12 PO; +LOSA25TA41 PO
[2018-03-26 04:24] LABS: HEMATOCRIT 29.1 % (35.0-45.0); HEMOGLOBIN 9.7 g/dl (12.0-16.0); MEAN CORPUSCULAR HEMOGLOBIN 27.6 PG (27.0-31.0); MEAN CORPUSCULAR HGB CONC 33.4 g/dL (33.0-36.5); MEAN CORPUSCULAR VOLUME 82.6 FL (78-98); MEAN PLATELET VOLUME 9.3 FL (7.4-10.4); PLATELET COUNT 180 X10'3 (140-440); RED BLOOD COUNT 3.52 X10'6 (4.20-5.60); RED CELL DISTRIBUTION WIDTH 18.6 % (11.5-14.5)
[2018-03-26 04:29] LABS: PARTIAL THROMBOPLASTIN TIME 28 SECONDS (22-32); PROTHROMBIN TIME 10.5 SECONDS (9.0-12.0)
[2018-03-26 04:30] LABS: ALANINE AMINOTRANSFERASE 17 U/L (12-78); ALBUMIN 3.2 G/DL (3.4-5.0); ALBUMIN/GLOBULIN RATIO 1.1 (1.1-1.5); ALKALINE PHOSPHATASE 207 IU/L (46-116); ANION GAP 12 (8-16); ASPARTATE AMINO TRANSFERASE 18 U/L (10-37); BILIRUBIN,TOTAL 0.7 MG/DL (0.1-1.0); BLOOD UREA NITROGEN 42 MG/DL (7-18); BUN/CREATININE RATIO 5.9 (6.6-38.0); CHLORIDE 90 MMOL/L (99-107); CREATININE 7.15 MG/DL (0.40-0.90); GLUCOSE 81 MG/DL (70-104); POTASSIUM 5.5 MMOL/L (3.5-5.1); SODIUM 123 MMOL/L (135-145); TOTAL CARBON DIOXIDE 21.3 MMOL/L (24-32); TOTAL PROTEIN 6.2 G/DL (6.4-8.2); eGFR 6 ML/MIN
[2018-03-26 04:38] LABS: ANISOCYTOSIS 2+; PLATELET ESTIMATE NORMAL; TOTAL CELLS COUNTED 100
[2018-03-26 04:40] LABS: MAGNESIUM 1.6 MG/DL (1.5-2.4); PHOSPHORUS 4.1 MG/DL (2.3-4.5)
[2018-03-26 04:48] VITALS: BP 174/74
[2018-03-26 05:11] LABS: CLARITY,URINE CLEAR (Clear); COLOR,URINE YELLOW (Yellow); GLUCOSE, URINE NEGATIVE (Neg); KETONES,URINE NEGATIVE (Neg); LEUKOCYTE ESTERASE ,URINE SMALL (Neg); NITRITES, URINE NEGATIVE (Neg); OCCULT BLOOD,URINE TRACE-LYSED (Neg); PH,URINE 8.5 (4.8-8.0); PROTEIN,URINE >=300 mg/dl (Neg); UROBILINOGEN,URINE 0.2 E.U/dL (0.2-1.0)
[2018-03-26] MEDS ORDERED: FURO80TA87 PO (05:12)
[2018-03-26 05:16] LABS: UA COLLECTION TYPE CLN CATCH MIDSTREAM
[2018-03-26 05:20] LABS: BACTERIA,URINE FEW /HPF (Neg); RBC,URINE 0-2 /HPF (0-2)
[2018-03-26 05:21] LABS: SQUAMOUS EPITHELIAL CELL,UR MANY /LPF (FEW)
== END 2018-03-26 05:36 | disposition home or self-care (01) ==
LOC: ER 03:21
DX: I12.0 Hypertensive chronic kidney disease with stage 5 chronic kidney disease or end stage renal disease (principal); N18.6 End stage renal disease; Z90.710 Acquired absence of both cervix and uterus; Z98.890 Other specified postprocedural states; Z99.2 Dependence on renal dialysis; Z88.2 Allergy status to sulfonamides; Z88.5 Allergy status to narcotic agent; Z91.011 Allergy to milk products; Z88.8 Allergy status to other drugs, medicaments and biological substances; Z79.899 Other long term (current) drug therapy
CPT/HCPCS: 36415; 71045; 80053; 81001; 83735; 84100; 85025; 85610; 85730; 93005; 99284

== ENCOUNTER 2018-12-15 01:33 | Inpatient (IN) | payer MEDICARE, OTHER ==
[~2018-12-15] VITALS: Ht 157.5 cm; Wt 78.3 kg
[2018-12-15 01:54] LABS: BASOPHILS # (AUTO) 0.1 X10'3 (0-0.2); BASOPHILS % (AUTO) 0.7 % (0-1); EOSINOPHILS % (AUTO) 0 % (0-6); HEMATOCRIT 34.9 % (35.0-45.0); HEMOGLOBIN 11.8 g/dl (12.0-16.0); LYMPHOCYTES % (AUTO) 12.1 % (21-51); MEAN CORPUSCULAR HEMOGLOBIN 29.4 PG (27.0-31.0); MEAN CORPUSCULAR HGB CONC 33.8 g/dL (33.0-36.5); MEAN CORPUSCULAR VOLUME 87.1 FL (78-98); MEAN PLATELET VOLUME 9.3 FL (7.4-10.4); MONOCYTES # (AUTO) 0.9 X10'3 (0-0.9); MONOCYTES % (AUTO) 11.1 % (2-12); NEUTROPHILS % (AUTO) 76.1 % (42-75); PLATELET COUNT 115 X10'3 (140-440); RED BLOOD COUNT 4.01 X10'6 (4.20-5.60); RED CELL DISTRIBUTION WIDTH 13.7 % (11.5-14.5); WHITE BLOOD COUNT 7.9 X10'3 (4.5-11.0)
[2018-12-15 02:05] LABS: ALANINE AMINOTRANSFERASE 26 U/L (12-78); ALBUMIN 3.7 G/DL (3.4-5.0); ALKALINE PHOSPHATASE 397 IU/L (46-116); ANION GAP 14 (8-16); ASPARTATE AMINO TRANSFERASE 19 U/L (10-37); BILIRUBIN,TOTAL 0.5 MG/DL (0.1-1.0); BLOOD UREA NITROGEN 48 MG/DL (7-18); BUN/CREATININE RATIO 5.8 (6.6-38.0); CALCIUM 8.4 MG/DL (8.5-10.1); CHLORIDE 96 MMOL/L (99-107); CREATININE 8.33 MG/DL (0.40-0.90); GLUCOSE 95 MG/DL (70-104); POTASSIUM 5.6 MMOL/L (3.5-5.1); SODIUM 134 MMOL/L (135-145); TOTAL CARBON DIOXIDE 23.9 MMOL/L (24-32); TOTAL PROTEIN 7.4 G/DL (6.4-8.2); eGFR 5 ML/MIN
[2018-12-15] MEDS ORDERED: ondansetron 4mg rapidly disintigrating tab PO ONE (02:15)
[2018-12-15] MEDS ORDERED: morphine 4 MG/ML inj SYRINge IM ONE (02:15)
[2018-12-15] MEDS ORDERED: normal saline 1000ML IV soln IVB ONE (02:25)
[2018-12-15 02:45] LABS: LIPASE 216 U/L (73-393); TROPONIN I < 0.04 NG/ML (0.0-0.05)
[2018-12-15] MEDS ORDERED: DILT180C53 PO (04:29)
[2018-12-15] MEDS ORDERED: FURO80TA3 PO (04:29)
[2018-12-15] MEDS ORDERED: LOSA100T57 PO (04:29)
[2018-12-15] MEDS ORDERED: SODI325T PO (04:29)
[2018-12-15] MEDS ORDERED: HYDR-4069 PO (04:29)
[2018-12-15] MEDS ORDERED: CLON0.1T2 PO (04:29)
[2018-12-15] MEDS ORDERED: CARV25TA2 PO (04:29)
[2018-12-15] MEDS ORDERED: cloNIDine 0.1 MG/24 HOUR patch (7 day patch) TD ONE (04:45)
[2018-12-15] MEDS ORDERED: hydrALAZINE 20mg/ml inj. IV ONE (04:45)
[2018-12-15] MEDS ORDERED: HYDROmorphone 1 mg/ml syringe IV PRN (04:45)
[2018-12-15] MEDS ORDERED: diphenhydrAMINE 50 mg/ml inj IV PRN (04:45)
[2018-12-15] MEDS ORDERED: hydrALAZINE 20mg/ml inj. IV PRN (04:45)
[2018-12-15] MEDS ORDERED: acetaminophen 650mg rectal suppository RC PRN (04:45)
[2018-12-15] MEDS ORDERED: ondansetron/PF 4mg/2ml inj IV PRN (04:45)
[2018-12-15] MEDS: normal saline 1000ml 1,000 ML IV SCH ×3 (05:04→21:17)
--- NOTE | 2018-12-15 05:20 | NUR ---
Patient in room ED 8. I have received report from Marcos ED RN and had the opportunity to ask questions and assume patient care.
--- NOTE | 2018-12-15 05:30 | NUR ---
Pt arrived to floor accompanied by MONIQUE Rodríguez on monitor. Pt ambulated to bed with assistance. VSS, tele placed on pt, hooked NG to suction. No complaints at this time.
[2018-12-15 05:45] VITALS: BP 152/89
--- NOTE | 2018-12-15 06:00 | NUR ---
Patient in room MELVIN 360. I have received report from MONIQUE Wolfe and had the opportunity to ask questions and assume patient care.
--- NOTE | 2018-12-15 06:20 | NUR ---
Patient in room ED 8. I have received report from MONIQUE Mccormick and had the opportunity to ask questions and assume patient care. Addendum: 12/15/18 at 0705 by Yaneth La RN Patient in room 360 A
--- NOTE | 2018-12-15 06:37 | NUR ---
Problems reprioritized. Patient report given, questions answered & plan of care reviewed with MONIQUE Wolfe.
[2018-12-15 07:20] VITALS: BP 156/81
[2018-12-15] MEDS: pantoprazole 40 MG vial IV SCH (08:02)
[2018-12-15] MEDS: furosemide 10 MG/1 ML 10ml inj IV SCH ×3 (08:03→21:11)
[2018-12-15] MEDS ORDERED: heparin 1,000unit/ml 10ml vial 10 ML IV ONE (08:53)
[2018-12-15] MEDS ORDERED: heparin 1,000 units/ml 10ml inj IV ONE (08:55)
[2018-12-15] MEDS ORDERED: albumin (human) 25% 100ml IV 100 ML IV PRN (08:55)
[2018-12-15] MEDS ORDERED: LIDOcaine 1% (10mg/ml) 2ml vial SQ ONE (09:15)
--- NOTE | 2018-12-15 10:00 | NUR ---
At about 0845 patient complained of chest pressure that wrapped around her back. Patient stated it wasn't really painful just more uncomfortably. BP 170/77 HR 87, per Tele chambers patient was running Sinus rhythm with a heart rate of about 86. ICU was called and Dr. Hopkins was informed of the situation. Order for an EKG and troponin series were received and put into the computer. EKG was obtained and taken to Dr. Hopkins in the ICU who stated that the EKG was normal. Patient stated that she was starting to feel better. First troponin was 0.04. Will continue to monitor patient.
[2018-12-15] MEDS: HYDROmorphone inj. 0.5 MG/0.5 ML DISP.SYRIN IV PRN ×2 (10:17→14:16)
[2018-12-15 11:00] VITALS: BP 151/80
--- NOTE | 2018-12-15 12:00 | NUR ---
Problems reprioritized. Patient report given, questions answered & plan of care reviewed with MONIQUE Wolfe.
--- NOTE | 2018-12-15 12:16 | NUR ---
Student documentation: I have reviewed and agree with all interventions, assessments performed and documented by Adamaris, instructor of nursing.
--- NOTE | 2018-12-15 12:17 | NUR ---
Student Medication Administration: For this medication-pass time frame, all medication were reviewed, dispensed, administered and documented per hospital policy by Adamaris nursing surgical services director.
--- NOTE | 2018-12-15 12:24 | NUR ---
Patient in room MELVIN 344. I have received report from Adamaris Yates, student nurse and had the opportunity to ask questions and assume patient care.
--- NOTE | 2018-12-15 15:10 | NUR ---
reviewed student nurse charting
--- NOTE | 2018-12-15 18:24 | NUR ---
Problems reprioritized. Patient report given, questions answered & plan of care reviewed with Princess Sánchez RN.
--- NOTE | 2018-12-15 18:30 | NUR ---
Patient in room MELVIN 344. I have received report from NGUYEN AMAYA and had the opportunity to ask questions and assume patient care.
[2018-12-15 20:00] VITALS: BP 148/67
[2018-12-15] MEDS: diatr meglu/diatrizoate 30ml oral sol.-(3 dose) bottle PO SCH (21:18)
[2018-12-16] VITALS: BP 151/61
[2018-12-16] MEDS: HYDROmorphone inj. 0.5 MG/0.5 ML DISP.SYRIN IV PRN ×2 (00:21→04:38)
--- NOTE | 2018-12-16 06:30 | NUR ---
Problems reprioritized. Patient report given, questions answered & plan of care reviewed with UYEN RN.
--- NOTE | 2018-12-16 06:49 | NUR ---
Patient in room MELVIN 344. I have received report from Charity AMAYA and had the opportunity to ask questions and assume patient care.
--- NOTE | 2018-12-16 06:49 | NUR ---
Patient in room MELVIN 344. I have received report from Charity AMAYA and had the opportunity to ask questions and assume patient care.
[2018-12-16 07:00] VITALS: BP 146/64
[2018-12-16 08:00] VITALS: BP 145/61
[2018-12-16] MEDS: diatr meglu/diatrizoate 30ml oral sol.-(3 dose) bottle PO SCH ×2 (08:42→10:14)
[2018-12-16] MEDS: furosemide 10 MG/1 ML 10ml inj IV SCH ×3 (08:47→20:14)
[2018-12-16] MEDS: pantoprazole 40 MG vial IV SCH (08:48)
[2018-12-16 11:00] VITALS: BP 161/74
[2018-12-16 12:57] VITALS: BP 161/74
--- NOTE | 2018-12-16 14:27 | NUR ---
NG tube discontinued with x1 student nurse and x1 RN. Patient tolerated well. NG came out easily and was not met with any resistance.
[2018-12-16 15:18] LABS: BASOPHILS % (AUTO) 0.8 % (0-1); EOSINOPHILS % (AUTO) 0 % (0-6); HEMATOCRIT 32.4 % (35.0-45.0); HEMOGLOBIN 10.8 g/dl (12.0-16.0); LYMPHOCYTES # (AUTO) 0.8 X10'3 (1.1-4.8); LYMPHOCYTES % (AUTO) 17.1 % (21-51); MEAN CORPUSCULAR HEMOGLOBIN 29.1 PG (27.0-31.0); MEAN CORPUSCULAR HGB CONC 33.3 g/dL (33.0-36.5); MEAN CORPUSCULAR VOLUME 87.4 FL (78-98); MEAN PLATELET VOLUME 8.5 FL (7.4-10.4); MONOCYTES # (AUTO) 0.7 X10'3 (0-0.9); MONOCYTES % (AUTO) 14.7 % (2-12); NEUTROPHILS # (AUTO) 3.1 X10'3 (1.8-7.7); NEUTROPHILS % (AUTO) 67.4 % (42-75); PLATELET COUNT 117 X10'3 (140-440); RED BLOOD COUNT 3.71 X10'6 (4.20-5.60); RED CELL DISTRIBUTION WIDTH 13.3 % (11.5-14.5); WHITE BLOOD COUNT 4.5 X10'3 (4.5-11.0)
[2018-12-16 15:33] LABS: ALANINE AMINOTRANSFERASE 18 U/L (12-78); ALBUMIN/GLOBULIN RATIO 0.9 (1.1-1.5); ALKALINE PHOSPHATASE 274 IU/L (46-116); ANION GAP 10 (8-16); ASPARTATE AMINO TRANSFERASE 16 U/L (10-37); BILIRUBIN,TOTAL 0.6 MG/DL (0.1-1.0); BLOOD UREA NITROGEN 28 MG/DL (7-18); BUN/CREATININE RATIO 4.4 (6.6-38.0); CALCIUM 7.4 MG/DL (8.5-10.1); CHLORIDE 104 MMOL/L (99-107); CREATININE 6.32 MG/DL (0.40-0.90); GLUCOSE 85 MG/DL (70-104); MAGNESIUM 1.6 MG/DL (1.5-2.4); PHOSPHORUS 3.9 MG/DL (2.3-4.5); POTASSIUM 4.5 MMOL/L (3.5-5.1); SODIUM 140 MMOL/L (135-145); TOTAL CARBON DIOXIDE 26.4 MMOL/L (24-32); TOTAL PROTEIN 6.4 G/DL (6.4-8.2); eGFR 6 ML/MIN
[2018-12-16 18:00] VITALS: BP 141/69
--- NOTE | 2018-12-16 18:30 | NUR ---
Problems reprioritized. Patient report given, questions answered & plan of care reviewed with Franci AMAYA.
--- NOTE | 2018-12-16 18:51 | NUR ---
Patient in room MELVIN 344. I have received report from MONIQUE Tesfaye and had the opportunity to ask questions and assume patient care.
[2018-12-16] MEDS: normal saline 1000ml 1,000 ML IV SCH (20:12)
[2018-12-17] VITALS: BP 154/54
[2018-12-17 05:03] LABS: ALBUMIN 2.7 G/DL (3.4-5.0); ANION GAP 13 (8-16); BLOOD UREA NITROGEN 33 MG/DL (7-18); BUN/CREATININE RATIO 4.6 (6.6-38.0); CALCIUM 7.3 MG/DL (8.5-10.1); CHLORIDE 104 MMOL/L (99-107); CREATININE 7.23 MG/DL (0.40-0.90); GLUCOSE 79 MG/DL (70-104); MAGNESIUM 1.7 MG/DL (1.5-2.4); PHOSPHORUS 4.3 MG/DL (2.3-4.5); POTASSIUM 4.5 MMOL/L (3.5-5.1); SODIUM 142 MMOL/L (135-145); TOTAL CARBON DIOXIDE 24.9 MMOL/L (24-32); eGFR 6 ML/MIN
[2018-12-17 05:05] LABS: BASOPHILS % (AUTO) 1.3 % (0-1); EOSINOPHILS % (AUTO) 0 % (0-6); HEMOGLOBIN 9.7 g/dl (12.0-16.0); LYMPHOCYTES # (AUTO) 0.9 X10'3 (1.1-4.8); LYMPHOCYTES % (AUTO) 24.7 % (21-51); MEAN CORPUSCULAR HEMOGLOBIN 29.7 PG (27.0-31.0); MEAN CORPUSCULAR HGB CONC 33.6 g/dL (33.0-36.5); MEAN CORPUSCULAR VOLUME 88.4 FL (78-98); MEAN PLATELET VOLUME 8.7 FL (7.4-10.4); MONOCYTES # (AUTO) 0.6 X10'3 (0-0.9); MONOCYTES % (AUTO) 15.5 % (2-12); NEUTROPHILS # (AUTO) 2.2 X10'3 (1.8-7.7); NEUTROPHILS % (AUTO) 58.5 % (42-75); PLATELET COUNT 113 X10'3 (140-440); RED BLOOD COUNT 3.28 X10'6 (4.20-5.60); RED CELL DISTRIBUTION WIDTH 13.5 % (11.5-14.5); WHITE BLOOD COUNT 3.7 X10'3 (4.5-11.0)
--- NOTE | 2018-12-17 06:26 | NUR ---
Problems reprioritized. Patient report given, questions answered & plan of care reviewed with MONIQUE Tesfaye.
--- NOTE | 2018-12-17 06:31 | NUR ---
Patient in room MELVIN 344. I have received report from MONIQUE Koroma and had the opportunity to ask questions and assume patient care.
[2018-12-17 07:33] VITALS: BP 147/76
[2018-12-17] MEDS: pantoprazole 40 MG vial IV SCH (08:31)
[2018-12-17] MEDS: furosemide 10 MG/1 ML 10ml inj IV SCH ×2 (08:31→15:22)
[2018-12-17] MEDS ORDERED: heparin 1,000unit/ml 10ml vial 10 ML IV ONE (08:46)
[2018-12-17] MEDS ORDERED: epoetin 20,000 units/ml inj IV ONE (08:50)
[2018-12-17] MEDS ORDERED: albumin (human) 25% 100ml IV 100 ML IV PRN (08:50)
[2018-12-17] MEDS ORDERED: heparin 1,000 units/ml 10ml inj IV ONE (08:50)
[2018-12-17] MEDS ORDERED: LIDOcaine 1% (10mg/ml) 2ml vial SQ ONE (09:15)
[2018-12-17 12:00] VITALS: BP 181/83
--- NOTE | 2018-12-17 16:20 | NUR ---
Student documentation: I have reviewed all interventions, assessments performed and documented by Lauren CASTRO
--- NOTE | 2018-12-17 16:55 | NUR ---
Patient was discharged at 1655. IV was removed, cannula intact with minimal redness and bleeding at insertion site. Patient was informed verbally of diagnosis and follow-up instructions and stated understanding. Patient was given paper copies of her diagnosis and how to manage at home and what to do in the event of recurring symptoms. Patient was escorted to daughter's vehicle via wheelchair.
== END 2018-12-17 16:58 | disposition home or self-care (01) | DRG 393 ==
LOC: ER 01:33 → ED HOLD 05:10 → EDBEDREQ 05:15 → SUR 3N 05:40 → CMPBEDREQ 06:01 → SUR 3N 11:47
PROVIDERS: ADMIT Internal Medicine Critical Care Medicine; ATTEND Internal Medicine Critical Care Medicine
PROC: 5A1D70Z Performance of Urinary Filtration, Intermittent, Less than 6 Hours Per Day (ICD-10-PCS; 2018-12-15)
PROC: 5A1D70Z Performance of Urinary Filtration, Intermittent, Less than 6 Hours Per Day (ICD-10-PCS; principal; 2018-12-17)
DX: K43.3 Parastomal hernia with obstruction, without gangrene (principal); N18.6 End stage renal disease; I12.0 Hypertensive chronic kidney disease with stage 5 chronic kidney disease or end stage renal disease; K56.690 Other partial intestinal obstruction; I48.91 Unspecified atrial fibrillation; N20.0 Calculus of kidney; E87.5 Hyperkalemia; Z99.2 Dependence on renal dialysis; Z88.2 Allergy status to sulfonamides; Z88.8 Allergy status to other drugs, medicaments and biological substances; Z88.6 Allergy status to analgesic agent; Z91.011 Allergy to milk products; Z90.710 Acquired absence of both cervix and uterus; Z93.2 Ileostomy status; Z98.41 Cataract extraction status, right eye; Z98.42 Cataract extraction status, left eye
CPT/HCPCS: 36415; 74176; 80048; 80053; 83605; 83690; 83735; 84100; 84484; 85025; 85610; 87081; 93005; 96360; 96372; 99285; C9113; G0257; G0378; J0360; J1170; J1644; J1940; J2001; J2270; J2405; J7030; Q4081; Q9963

== ENCOUNTER 2019-07-20 08:45 | Emergency (ER) | payer MEDICARE, OTHER ==
[~2019-07-20] VITALS: Ht 157.5 cm; Wt 90.0 kg
[~2019-07-20 08:45] MED LIST changes: -ACYC200C PO; +CALC500T11 PO; +CARV25TA2 PO; +CLON0.1T2 PO; +DILT180C53 PO; -EPOE1000; +FURO80TA3 PO; +HYDR-4069 PO; +LOSA100T57 PO; -LOSA25TA41 PO; -METO50TA16 PO; -ZOLP10TA5 PO; +ZOLP5TAB8 PO
[2019-07-20] MEDS ORDERED: morphine 4 MG/ML inj SYRINge IV ONE (09:55)
[2019-07-20] MEDS ORDERED: ondansetron/PF 4mg/2ml inj IV ONE (09:55)
--- NOTE | 2019-07-20 10:15 | NUR ---
pt to ct
[2019-07-20 10:22] LABS: BASOPHILS % (AUTO) 0.9 % (0-1); EOSINOPHILS % (AUTO) 0 % (0-6); HEMATOCRIT 33.3 % (35.0-45.0); LYMPHOCYTES # (AUTO) 0.8 X10'3 (1.1-4.8); LYMPHOCYTES % (AUTO) 21.5 % (21-51); MEAN CORPUSCULAR HEMOGLOBIN 28.9 PG (27.0-31.0); MEAN CORPUSCULAR VOLUME 87.5 FL (78-98); MEAN PLATELET VOLUME 9.2 FL (7.4-10.4); MONOCYTES # (AUTO) 0.4 X10'3 (0-0.9); MONOCYTES % (AUTO) 11.2 % (2-12); NEUTROPHILS # (AUTO) 2.5 X10'3 (1.8-7.7); NEUTROPHILS % (AUTO) 66.4 % (42-75); PLATELET COUNT 137 X10'3 (140-440); RED BLOOD COUNT 3.81 X10'6 (4.20-5.60); RED CELL DISTRIBUTION WIDTH 15.7 % (11.5-14.5); WHITE BLOOD COUNT 3.8 X10'3 (4.5-11.0)
[2019-07-20 10:36] LABS: ALANINE AMINOTRANSFERASE 15 U/L (12-78); ALBUMIN 3.4 G/DL (3.4-5.0); ALKALINE PHOSPHATASE 269 IU/L (46-116); ANION GAP 12 (8-16); ASPARTATE AMINO TRANSFERASE 16 U/L (10-37); BILIRUBIN,TOTAL 0.5 MG/DL (0.1-1.0); BLOOD UREA NITROGEN 53 MG/DL (7-18); BUN/CREATININE RATIO 6.3 (6.6-38.0); CALCIUM 7.8 MG/DL (8.5-10.1); CHLORIDE 95 MMOL/L (99-107); GLUCOSE 86 MG/DL (70-104); POTASSIUM 5.9 MMOL/L (3.5-5.1); SODIUM 130 MMOL/L (135-145); TOTAL CARBON DIOXIDE 22.6 MMOL/L (24-32); TOTAL PROTEIN 6.9 G/DL (6.4-8.2); eGFR 5 ML/MIN
[2019-07-20 11:06] LABS: CLARITY,URINE SLIGHTLY CLOUDY (Clear); COLOR,URINE STRAW (Yellow); GLUCOSE, URINE NEGATIVE (Neg); KETONES,URINE NEGATIVE (Neg); LEUKOCYTE ESTERASE ,URINE MODERATE (Neg); NITRITES, URINE NEGATIVE (Neg); OCCULT BLOOD,URINE TRACE-INTACT (Neg); PROTEIN,URINE 100 mg/dl (Neg); UROBILINOGEN,URINE 0.2 E.U/dL (0.2-1.0)
[2019-07-20 11:09] LABS: UA COLLECTION TYPE CLN CATCH MIDSTREAM
[2019-07-20 11:13] LABS: SQUAMOUS EPITHELIAL CELL,UR MODERATE /LPF (FEW); TRANSITIONAL EPI CELLS,URINE MODERATE /HPF
[2019-07-20 11:14] LABS: BACTERIA,URINE 1+ /HPF (Neg); HYALINE CASTS 0-3 /LPF (NEGATIVE); MUCUS STRANDS FEW /LPF (Neg); WBC CLUMPS,URINE MODERATE /HPF (NEGATIVE)
[2019-07-20 11:15] LABS: WBC,URINE 30-50 /HPF (0-4)
[2019-07-20] MEDS ORDERED: levoFLOXACIN-Levaquin 500mg/D5 100 ML IV ONE (11:45)
[2019-07-20] MEDS ORDERED: diphenhydrAMINE 50 mg/ml inj IV ONE (12:10)
--- NOTE | 2019-07-20 12:12 | NUR ---
PT C.O REDNESS TO HER ARM ABOVE THE IV SITE, CLEARY MADE AWARE, LEVAQUIN STOPPED.
[2019-07-20] MEDS ORDERED: ciprofloxacin lact 400MG/200ML 200 ML IV SCH (12:45)
[2019-07-20] MEDS ORDERED: NITR100C6 PO (13:25)
[2019-07-20 13:50] VITALS: BP 127/53
== END 2019-07-20 13:56 | disposition home or self-care (01) ==
LOC: ER 08:45
DX: N39.0 Urinary tract infection, site not specified (principal); R10.9 Unspecified abdominal pain; I12.0 Hypertensive chronic kidney disease with stage 5 chronic kidney disease or end stage renal disease; N18.6 End stage renal disease; Z93.2 Ileostomy status; Z99.2 Dependence on renal dialysis; Z90.710 Acquired absence of both cervix and uterus; Z98.890 Other specified postprocedural states; Z88.2 Allergy status to sulfonamides; Z88.5 Allergy status to narcotic agent; Z88.8 Allergy status to other drugs, medicaments and biological substances; Z88.1 Allergy status to other antibiotic agents; Z91.011 Allergy to milk products; Z79.899 Other long term (current) drug therapy
CPT/HCPCS: 36415; 74176; 80053; 81001; 85025; 87088; 96365; 96367; 96375; 99285; J0744; J1200; J1956; J2270; J2405

== ENCOUNTER 2019-07-23 07:54 | Emergency (ER) | payer MEDICARE, OTHER ==
[~2019-07-23] VITALS: Ht 157.5 cm; Wt 79.5 kg
[~2019-07-23 07:54] MED LIST changes: +NITR100C6 PO
--- NOTE | 2019-07-23 08:28 | NUR ---
pt reports taking macrobid on an empty stomach. medication education provided.
--- NOTE | 2019-07-23 08:39 | NUR ---
Discussed pt's nausea w/ edmd ketty; new order for zofran odt received
[2019-07-23] MEDS ORDERED: ondansetron 4mg rapidly disintigrating tab PO ONE (08:40)
[2019-07-23] MEDS ORDERED: ondansetron/PF 4mg/2ml inj IV ONE (09:10)
[2019-07-23] MEDS: morphine 4 MG/ML inj SYRINge IV PRN ×2 (09:18→11:39)
[2019-07-23 09:29] LABS: BASOPHILS % (AUTO) 1.2 % (0-1); EOSINOPHILS % (AUTO) 0 % (0-6); HEMATOCRIT 32.9 % (35.0-45.0); LYMPHOCYTES # (AUTO) 0.7 X10'3 (1.1-4.8); LYMPHOCYTES % (AUTO) 24.7 % (21-51); MEAN CORPUSCULAR HEMOGLOBIN 30.3 PG (27.0-31.0); MEAN CORPUSCULAR HGB CONC 33.5 g/dL (33.0-36.5); MEAN CORPUSCULAR VOLUME 90.5 FL (78-98); MEAN PLATELET VOLUME 8.8 FL (7.4-10.4); MONOCYTES # (AUTO) 0.5 X10'3 (0-0.9); MONOCYTES % (AUTO) 17.8 % (2-12); NEUTROPHILS # (AUTO) 1.6 X10'3 (1.8-7.7); NEUTROPHILS % (AUTO) 56.3 % (42-75); PLATELET COUNT 151 X10'3 (140-440); RED BLOOD COUNT 3.64 X10'6 (4.20-5.60); RED CELL DISTRIBUTION WIDTH 15.6 % (11.5-14.5); WHITE BLOOD COUNT 2.9 X10'3 (4.5-11.0)
[2019-07-23 09:41] LABS: ALANINE AMINOTRANSFERASE 12 U/L (12-78); ALBUMIN 3.4 G/DL (3.4-5.0); ALKALINE PHOSPHATASE 240 IU/L (46-116); ANION GAP 6 (8-16); ASPARTATE AMINO TRANSFERASE 17 U/L (10-37); BILIRUBIN,TOTAL 0.7 MG/DL (0.1-1.0); BLOOD UREA NITROGEN 30 MG/DL (7-18); CALCIUM 7.2 MG/DL (8.5-10.1); CHLORIDE 94 MMOL/L (99-107); GLUCOSE 85 MG/DL (70-104); LIPASE 142 U/L (73-393); POTASSIUM 4.6 MMOL/L (3.5-5.1); SODIUM 130 MMOL/L (135-145); TOTAL CARBON DIOXIDE 29.9 MMOL/L (24-32); TOTAL PROTEIN 6.7 G/DL (6.4-8.2)
[2019-07-23 09:52] LABS: BUN/CREATININE RATIO 4.8 (6.6-38.0); CREATININE 6.27 MG/DL (0.40-0.90); eGFR 7 ML/MIN
[2019-07-23 10:51] LABS: PLATELET ESTIMATE NORMAL; TOTAL CELLS COUNTED 100
[2019-07-23 11:18] LABS: CLARITY,URINE SLIGHTLY CLOUDY (Clear); COLOR,URINE STRAW (Yellow); GLUCOSE, URINE NEGATIVE (Neg); KETONES,URINE NEGATIVE (Neg); LEUKOCYTE ESTERASE ,URINE MODERATE (Neg); NITRITES, URINE NEGATIVE (Neg); OCCULT BLOOD,URINE TRACE-INTACT (Neg); PH,URINE 8.5 (4.8-8.0); PROTEIN,URINE 30 mg/dl (Neg); UROBILINOGEN,URINE 0.2 E.U/dL (0.2-1.0)
[2019-07-23 11:19] LABS: UA COLLECTION TYPE VOIDED
[2019-07-23 11:24] LABS: WBC,URINE 30-50 /HPF (0-4)
[2019-07-23 11:25] LABS: BACTERIA,URINE 1+ /HPF (Neg); MUCUS STRANDS NONE SEEN /LPF (Neg); RBC,URINE 0-2 /HPF (0-2); RENAL CELLS, URINE MODERATE /HPF; SQUAMOUS EPITHELIAL CELL,UR MANY /LPF (FEW); WBC CLUMPS,URINE MODERATE /HPF (NEGATIVE)
[2019-07-23] MEDS ORDERED: cephalexin 250mg capsule PO ONE (11:30)
[2019-07-23] MEDS ORDERED: nitrofuran/nitrofuran macrocrysal 100 MG capsule PO ONE (11:40)
[2019-07-23 11:41] VITALS: BP 166/75
[2019-07-23] MEDS ORDERED: HYDR-4353 PO (11:45)
[2019-07-23] MEDS ORDERED: NITR100C6 PO (11:45)
--- NOTE | 2019-07-23 14:52 | NUR ---
called in a prescription to [facility] from [facility] for Zofran 4mg PO Q6hr, PRN N/V, quantity 15. no refills.
[2019-07-23] MEDS ORDERED: ONDA4TAB6 PO ×2 (21:24→21:28)
== END 2019-07-23 12:29 | disposition home or self-care (01) ==
LOC: ER 07:54
DX: N39.0 Urinary tract infection, site not specified (principal); R11.2 Nausea with vomiting, unspecified; R10.32 Left lower quadrant pain; I12.0 Hypertensive chronic kidney disease with stage 5 chronic kidney disease or end stage renal disease; N18.6 End stage renal disease; Z99.2 Dependence on renal dialysis; Z90.710 Acquired absence of both cervix and uterus; Z98.890 Other specified postprocedural states; Z88.2 Allergy status to sulfonamides; Z88.1 Allergy status to other antibiotic agents; Z88.5 Allergy status to narcotic agent; Z91.011 Allergy to milk products; Z79.899 Other long term (current) drug therapy
CPT/HCPCS: 36415; 80053; 81001; 83690; 85025; 96374; 96375; 96376; 99284; J2270; J2405

== ENCOUNTER 2019-07-23 19:23 | Emergency (ER) | payer MEDICARE, OTHER ==
[~2019-07-23] VITALS: Ht 157.5 cm; Wt 79.5 kg
[~2019-07-23 19:23] MED LIST changes: +HYDR-4353 PO
--- NOTE | 2019-07-23 20:35 | NUR ---
pts pain is 4/10 she states shes feeling better, no c/o nausea at the moment
[2019-07-23] MEDS ORDERED: ondansetron 4mg rapidly disintigrating tab PO ONE (21:00)
[2019-07-23] MEDS ORDERED: normal saline 1000ml 1,000 ML IV ONE (21:10)
--- NOTE | 2019-07-23 21:11 | NUR ---
started ns bolus if 1000ml
[2019-07-23] MEDS ORDERED: ONDA4TAB6 PO ×2 (21:24→21:28)
--- NOTE | 2019-07-23 21:46 | NUR ---
ns bolus still infusing, pt still not sure about discharge, will re-evaluate once bolus is finished
[2019-07-23] MEDS ORDERED: metoclopramide 5 mg/ml inj IV STA (21:54)
--- NOTE | 2019-07-23 21:55 | NUR ---
INFORMED MD OF NAUSEA, RECEIVED ORDER FOR REGLAN, ORDER PLACED.
[2019-07-23 22:04] VITALS: BP 160/69
== END 2019-07-23 22:06 | disposition home or self-care (01) ==
LOC: ER 19:23
DX: K29.70 Gastritis, unspecified, without bleeding (principal); I12.0 Hypertensive chronic kidney disease with stage 5 chronic kidney disease or end stage renal disease; N18.6 End stage renal disease; N39.0 Urinary tract infection, site not specified; Z99.2 Dependence on renal dialysis; Z90.710 Acquired absence of both cervix and uterus; Z98.890 Other specified postprocedural states; Z88.2 Allergy status to sulfonamides; Z88.1 Allergy status to other antibiotic agents; Z88.5 Allergy status to narcotic agent; Z88.8 Allergy status to other drugs, medicaments and biological substances; Z91.011 Allergy to milk products; Z79.899 Other long term (current) drug therapy
CPT/HCPCS: 96361; 96374; 99283; J2765; J7030

== ENCOUNTER 2019-09-26 13:11 | Emergency (ER) | payer MEDICARE, OTHER ==
[~2019-09-26] VITALS: Ht 157.5 cm; Wt 86.5 kg
[~2019-09-26 13:11] MED LIST changes: -HYDR-4353 PO; +ONDA4TAB6 PO
[2019-09-26 13:40] LABS: BASOPHILS % (AUTO) 1.1 % (0-1); EOSINOPHILS % (AUTO) 0 % (0-6); HEMOGLOBIN 11.4 g/dl (12.0-16.0); LYMPHOCYTES # (AUTO) 0.6 X10'3 (1.1-4.8); LYMPHOCYTES % (AUTO) 22.1 % (21-51); MEAN CORPUSCULAR HGB CONC 35.6 g/dL (33.0-36.5); MEAN CORPUSCULAR VOLUME 92.6 FL (78-98); MEAN PLATELET VOLUME 9.3 FL (7.4-10.4); MONOCYTES # (AUTO) 0.3 X10'3 (0-0.9); MONOCYTES % (AUTO) 11.8 % (2-12); NEUTROPHILS # (AUTO) 1.9 X10'3 (1.8-7.7); PLATELET COUNT 159 X10'3 (140-440); RED BLOOD COUNT 3.45 X10'6 (4.20-5.60); RED CELL DISTRIBUTION WIDTH 14.2 % (11.5-14.5); WHITE BLOOD COUNT 2.9 X10'3 (4.5-11.0)
[2019-09-26 13:44] LABS: ALANINE AMINOTRANSFERASE 17 U/L (12-78); ALBUMIN 3.6 G/DL (3.4-5.0); ALBUMIN/GLOBULIN RATIO 1.1 (1.1-1.5); ALKALINE PHOSPHATASE 249 IU/L (46-116); ANION GAP 16 (8-16); ASPARTATE AMINO TRANSFERASE 26 U/L (10-37); BILIRUBIN,TOTAL 0.7 MG/DL (0.1-1.0); BLOOD UREA NITROGEN 37 MG/DL (7-18); BUN/CREATININE RATIO 5.4 (6.6-38.0); CHLORIDE 86 MMOL/L (99-107); CREATININE 6.83 MG/DL (0.40-0.90); GLUCOSE 84 MG/DL (70-104); SODIUM 122 MMOL/L (135-145); TOTAL CARBON DIOXIDE 20.2 MMOL/L (24-32); eGFR 6 ML/MIN
--- NOTE | 2019-09-26 13:45 | NUR ---
Radha [phone]
[2019-09-26 13:47] LABS: TOTAL CELLS COUNTED 100
[2019-09-26 13:49] LABS: PLATELET ESTIMATE NORMAL
[2019-09-26 16:26] VITALS: BP 157/72
== END 2019-09-26 16:46 | disposition home or self-care (01) ==
LOC: ER 13:12
DX: E87.1 Hypo-osmolality and hyponatremia (principal); R06.02 Shortness of breath; R07.89 Other chest pain; R25.2 Cramp and spasm; I12.0 Hypertensive chronic kidney disease with stage 5 chronic kidney disease or end stage renal disease; N18.6 End stage renal disease; Z99.2 Dependence on renal dialysis; Z90.710 Acquired absence of both cervix and uterus; Z98.890 Other specified postprocedural states; Z88.2 Allergy status to sulfonamides; Z88.5 Allergy status to narcotic agent; Z88.8 Allergy status to other drugs, medicaments and biological substances; Z79.899 Other long term (current) drug therapy
CPT/HCPCS: 36415; 71045; 80053; 83880; 84484; 85025; 93005; 99285

== ENCOUNTER 2019-10-28 07:39 | Day surgery (SDC) | payer MEDICARE, OTHER ==
[~2019-10-28] VITALS: Ht 157.5 cm; Wt 84.0 kg
[2019-10-28 08:15] VITALS: BP 173/99
--- NOTE | 2019-10-28 08:15 | NUR ---
PT'S RIGHT ARM RECENTLY FX, PT WITH SPLINT WRAP IN JOSÉ MIGUEL WRAP. DENIED PAIN Addendum: 10/28/19 at 1235 by Jacquelyn Mckeon RN Amended: Links added.
[2019-10-28] MEDS ORDERED: ONDA4TAB6 PO (08:50)
[2019-10-28] MEDS ORDERED: LIDOcaine 1%/PF 5ML 10 MG/ML VIAL ONE (08:53)
[2019-10-28] MEDS ORDERED: fentaNYL/PF 50MCG/1 ML 2ML syringe ONE ×2 (08:54→09:50)
[2019-10-28] MEDS ORDERED: iohexol 300mg/ml 100ml inj. ONE (08:54)
[2019-10-28] MEDS ORDERED: heparin 1,000 UNITS/NS 500ml 500 ML ONE (08:54)
[2019-10-28] MEDS ORDERED: midazolam 2 mg/2 ml injection ONE ×2 (08:54→09:49)
[2019-10-28 10:22] VITALS: BP 181/85
[2019-10-28 10:30] VITALS: BP 177/89
[2019-10-28 10:45] VITALS: BP 156/79
[2019-10-28 11:00] VITALS: BP 157/76
[2019-10-28 11:15] VITALS: BP 155/89
== END 2019-10-28 11:40 | disposition home or self-care (01) ==
LOC: SSTAY O 07:39
PROVIDERS: ATTEND Radiology Diagnostic Radiology
DX: T82.590A Other mechanical complication of surgically created arteriovenous fistula, initial encounter (principal); I12.0 Hypertensive chronic kidney disease with stage 5 chronic kidney disease or end stage renal disease; N18.5 Chronic kidney disease, stage 5; Z99.2 Dependence on renal dialysis; Z90.710 Acquired absence of both cervix and uterus; Z98.890 Other specified postprocedural states; Z88.2 Allergy status to sulfonamides; Z88.1 Allergy status to other antibiotic agents; Z88.8 Allergy status to other drugs, medicaments and biological substances; Z91.011 Allergy to milk products; Z88.5 Allergy status to narcotic agent; Z79.899 Other long term (current) drug therapy; Z20.828 Contact with and (suspected) exposure to other viral communicable diseases; Y83.8 Other surgical procedures as the cause of abnormal reaction of the patient, or of later complication, without mention of misadventure at the time of the procedure; Y92.89 Other specified places as the place of occurrence of the external cause
CPT/HCPCS: 36415; 36901; 76937; 87635; 99152; 99153; C1769; C1894; J1644; J2250; J3010; Q9967

== ENCOUNTER 2019-12-05 17:38 | Emergency (ER) | payer MEDICARE, OTHER ==
[~2019-12-05] VITALS: Ht 160 cm; Wt 81.8 kg
[~2019-12-05 17:38] MED LIST changes: -NITR100C6 PO
[2019-12-05 18:29] LABS: BASOPHILS % (AUTO) 1.2 % (0-1); EOSINOPHILS % (AUTO) 0 % (0-6); HEMATOCRIT 30.1 % (35.0-45.0); LYMPHOCYTES # (AUTO) 1.2 X10'3 (1.1-4.8); LYMPHOCYTES % (AUTO) 33.6 % (21-51); MEAN CORPUSCULAR HEMOGLOBIN 29.4 PG (27.0-31.0); MEAN CORPUSCULAR HGB CONC 33.4 g/dL (33.0-36.5); MEAN CORPUSCULAR VOLUME 87.9 FL (78-98); MEAN PLATELET VOLUME 9.2 FL (7.4-10.4); MONOCYTES # (AUTO) 0.6 X10'3 (0-0.9); MONOCYTES % (AUTO) 16.1 % (2-12); NEUTROPHILS # (AUTO) 1.8 X10'3 (1.8-7.7); NEUTROPHILS % (AUTO) 49.1 % (42-75); PLATELET COUNT 180 X10'3 (140-440); RED BLOOD COUNT 3.42 X10'6 (4.20-5.60); RED CELL DISTRIBUTION WIDTH 15.9 % (11.5-14.5); WHITE BLOOD COUNT 3.6 X10'3 (4.5-11.0)
--- NOTE | 2019-12-05 18:43 | NUR ---
PY DAUGHTER JEAN CARLOS PHONED TO CHECK ON THE PT SHE CAN BE REACHED AT [phone]
[2019-12-05 18:48] LABS: ALANINE AMINOTRANSFERASE 21 U/L (12-78); ALBUMIN 3.7 G/DL (3.4-5.0); ALBUMIN/GLOBULIN RATIO 1.1 (1.1-1.5); ALKALINE PHOSPHATASE 297 IU/L (46-116); ANION GAP 9 (8-16); ASPARTATE AMINO TRANSFERASE 13 U/L (10-37); BILIRUBIN,TOTAL 0.4 MG/DL (0.1-1.0); BLOOD UREA NITROGEN 42 MG/DL (7-18); BUN/CREATININE RATIO 5.4 (6.6-38.0); CALCIUM 7.2 MG/DL (8.5-10.1); CHLORIDE 95 MMOL/L (99-107); CREATININE 7.73 MG/DL (0.40-0.90); GLUCOSE 84 MG/DL (70-104); POTASSIUM 5.5 MMOL/L (3.5-5.1); SODIUM 129 MMOL/L (135-145); TOTAL CARBON DIOXIDE 24.8 MMOL/L (24-32); TOTAL PROTEIN 7.2 G/DL (6.4-8.2); eGFR 5 ML/MIN
[2019-12-05 18:50] LABS: MAGNESIUM 1.5 MG/DL (1.5-2.4); PHOSPHORUS 2.7 MG/DL (2.3-4.5); TROPONIN I < 0.04 NG/ML (0.0-0.05)
[2019-12-05] MEDS ORDERED: normal saline 1000ML IV soln IVB ONE (19:10)
[2019-12-05] MEDS ORDERED: vancomycin/NS 1 GM ADD-VANTAGE 250 ML IV ONE (20:20)
--- NOTE | 2019-12-05 20:36 | NUR ---
Per , run abx over 1 hour.
--- NOTE | 2019-12-05 21:46 | NUR ---
Pts daughter to be here shortly . she is discharged, awaiting transport. pt is a&ox4 and polite and coooperative . pt with stable vs.
[2019-12-05 21:47] VITALS: BP 141/86
== END 2019-12-05 21:52 | disposition home or self-care (01) ==
LOC: ER 17:39
DX: E86.0 Dehydration (principal); N18.6 End stage renal disease; Z99.2 Dependence on renal dialysis; I12.0 Hypertensive chronic kidney disease with stage 5 chronic kidney disease or end stage renal disease; Z90.710 Acquired absence of both cervix and uterus; Z98.890 Other specified postprocedural states; Z88.0 Allergy status to penicillin; Z88.8 Allergy status to other drugs, medicaments and biological substances; Z88.5 Allergy status to narcotic agent; Z79.899 Other long term (current) drug therapy
CPT/HCPCS: 36415; 71045; 80053; 83605; 83735; 84100; 84145; 84484; 85025; 87040; 93005; 96365; 99285; J3370; J7030

== ENCOUNTER 2019-12-10 13:02 | Inpatient (IN) | payer MEDICARE, OTHER ==
[~2019-12-10] VITALS: Ht 160 cm; Wt 86.9 kg
[2019-12-10 13:36] LABS: ALANINE AMINOTRANSFERASE 19 U/L (12-78); ALBUMIN 3.3 G/DL (3.4-5.0); ALBUMIN/GLOBULIN RATIO 0.8 (1.1-1.5); ALKALINE PHOSPHATASE 271 IU/L (46-116); ANION GAP 12 (8-16); ASPARTATE AMINO TRANSFERASE 15 U/L (10-37); BILIRUBIN,TOTAL 0.4 MG/DL (0.1-1.0); BLOOD UREA NITROGEN 26 MG/DL (7-18); BUN/CREATININE RATIO 4.6 (6.6-38.0); CALCIUM 8.2 MG/DL (8.5-10.1); CHLORIDE 96 MMOL/L (99-107); CREATININE 5.66 MG/DL (0.40-0.90); GLUCOSE 92 MG/DL (70-104); POTASSIUM 4.5 MMOL/L (3.5-5.1); SODIUM 135 MMOL/L (135-145); TOTAL CARBON DIOXIDE 26.9 MMOL/L (24-32); TOTAL PROTEIN 7.2 G/DL (6.4-8.2); eGFR 7 ML/MIN
[2019-12-10 13:43] LABS: MAGNESIUM 1.6 MG/DL (1.5-2.4)
[2019-12-10 13:52] LABS: MEAN CORPUSCULAR VOLUME 92.4 FL (78-98)
[2019-12-10 13:54] LABS: HEMATOCRIT 28.3 % (35.0-45.0); HEMOGLOBIN 9.6 g/dl (12.0-16.0); MEAN CORPUSCULAR HEMOGLOBIN 31.4 PG (27.0-31.0); PLATELET COUNT 196 X10'3 (140-440); RED BLOOD COUNT 3.06 X10'6 (4.20-5.60); RED CELL DISTRIBUTION WIDTH 15.8 % (11.5-14.5); WHITE BLOOD COUNT 2.8 X10'3 (4.5-11.0)
[2019-12-10 14:08] LABS: TOTAL CELLS COUNTED 100
[2019-12-10 14:09] LABS: ANISOCYTOSIS 1+; PLATELET ESTIMATE NORMAL
[2019-12-10] MEDS ORDERED: aminophylline 250mg/10ml inj. IV PRN (14:40)
[2019-12-10] MEDS ORDERED: ondansetron/PF 4mg/2ml inj IV PRN (14:40)
[2019-12-10] MEDS ORDERED: metoprolol tartrate 1mg/ml inj IV PRN (14:40)
[2019-12-10] MEDS ORDERED: regadenoson 0.4mg/5ml syringe IV ONE (14:40)
[2019-12-10] MEDS ORDERED: nitroGLYCERIN 0.4mg SUBLingual tab SL PRN (14:40)
[2019-12-10] MEDS ORDERED: acetaminophen 325mg tablet PO PRN ×2 (14:40→17:55)
[2019-12-10] MEDS ORDERED: regadenoson 0.4mg/5ml syringe IV PRN (14:41)
[2019-12-10 14:48] LABS: PARTIAL THROMBOPLASTIN TIME 26 SECONDS (22-32)
[2019-12-10] MEDS ORDERED: ERGO500054 PO (15:21)
[2019-12-10] MEDS ORDERED: SODI650T29 PO (15:21)
[2019-12-10] MEDS ORDERED: ACET-1008 PO (15:36)
[2019-12-10] MEDS ORDERED: LOSA100T57 PO (15:36)
[2019-12-10] MEDS ORDERED: EPOE200015 SQ (15:36)
--- NOTE | 2019-12-10 16:39 | NUR ---
Attempted to call to obtain report from ED, no answer x2 after several minutes. Will call again
--- NOTE | 2019-12-10 16:50 | NUR ---
Report received from Kristina AMAYA in ED
[2019-12-10] MEDS ORDERED: aspirin 325mg tablet PO ONE (17:55)
[2019-12-10] MEDS ORDERED: zolpidem 5mg tablet PO PRN (17:55)
--- NOTE | 2019-12-10 18:40 | NUR ---
Problems reprioritized. Patient report given, questions answered & plan of care reviewed with Peggy AMAYA. Patient still in ED at this time
[2019-12-10 19:30] VITALS: BP 147/70
[2019-12-10] MEDS ORDERED: heparin, porcine 5000 units/ml vial SQ SCH (20:00)
[2019-12-10] MEDS ORDERED: enoxaparin 80mg/0.8ml syringe SUBCUT SCH (20:05)
[2019-12-10] MEDS: metoprolol tartrate 12.5mg (1/2 tablet) PO SCH (21:50)
[2019-12-10] MEDS: cloNIDine 0.1 mg tablet PO SCH (21:52)
[2019-12-10] MEDS: hydrALAZINE 25 MG tablet PO SCH (21:53)
[2019-12-10] MEDS: furosemide 40mg tablet PO SCH (21:54)
[2019-12-10] MEDS: sodium bicarbonate 650mg tablet PO SCH (21:54)
[2019-12-10 22:00] VITALS: BP 144/72
[2019-12-11] VITALS (13 sets, daily range): BP systolic 123–158; BP diastolic 58–79
--- NOTE | 2019-12-11 00:16 | NUR ---
I have received report from Radha AMAYA and had the opportunity to ask questions and assume patient care.
[2019-12-11 03:29] LABS: BASOPHILS # (AUTO) 0.1 X10'3 (0-0.2); EOSINOPHILS % (AUTO) 0 % (0-6); HEMATOCRIT 26.4 % (35.0-45.0); HEMOGLOBIN 8.6 g/dl (12.0-16.0); LYMPHOCYTES # (AUTO) 0.9 X10'3 (1.1-4.8); MONOCYTES # (AUTO) 0.4 X10'3 (0-0.9); NEUTROPHILS # (AUTO) 1.2 X10'3 (1.8-7.7); PLATELET COUNT 167 X10'3 (140-440)
[2019-12-11 03:33] LABS: BASOPHILS % (AUTO) 2.6 % (0-1); LYMPHOCYTES % (AUTO) 34.8 % (21-51); MEAN CORPUSCULAR HEMOGLOBIN 29.1 PG (27.0-31.0); MEAN CORPUSCULAR HGB CONC 32.5 g/dL (33.0-36.5); MEAN CORPUSCULAR VOLUME 89.6 FL (78-98); MEAN PLATELET VOLUME 8.9 FL (7.4-10.4); MONOCYTES % (AUTO) 16.4 % (2-12); NEUTROPHILS % (AUTO) 46.2 % (42-75); RED BLOOD COUNT 2.95 X10'6 (4.20-5.60); RED CELL DISTRIBUTION WIDTH 15.9 % (11.5-14.5); WHITE BLOOD COUNT 2.7 X10'3 (4.5-11.0)
[2019-12-11 03:38] LABS: ALBUMIN 2.9 G/DL (3.4-5.0); ANION GAP 9 (8-16); BLOOD UREA NITROGEN 32 MG/DL (7-18); BUN/CREATININE RATIO 4.9 (6.6-38.0); CHLORIDE 95 MMOL/L (99-107); CREATININE 6.52 MG/DL (0.40-0.90); GLUCOSE 75 MG/DL (70-104); MAGNESIUM 1.6 MG/DL (1.5-2.4); PHOSPHORUS 4.3 MG/DL (2.3-4.5); POTASSIUM 4.8 MMOL/L (3.5-5.1); SODIUM 132 MMOL/L (135-145); TOTAL CARBON DIOXIDE 28.5 MMOL/L (24-32); eGFR 6 ML/MIN
--- NOTE | 2019-12-11 06:33 | NUR ---
Problems reprioritized. Patient report given, questions answered & plan of care reviewed with Isabel AMAYA.
--- NOTE | 2019-12-11 06:34 | NUR ---
Patient in room PCU 3025. I have received report from Trevor RN and had the opportunity to ask questions and assume patient care.
[2019-12-11 07:08] LABS: ANISOCYTOSIS 1+; PLATELET ESTIMATE NORMAL; TOTAL CELLS COUNTED 100
[2019-12-11] MEDS: sodium bicarbonate 650mg tablet PO SCH ×2 (07:49→13:13)
[2019-12-11] MEDS: metoprolol tartrate 12.5mg (1/2 tablet) PO SCH (08:00)
[2019-12-11] MEDS: cloNIDine 0.1 mg tablet PO SCH (08:00)
[2019-12-11] MEDS ORDERED: albumin (human) 25% 100ml IV 100 ML IV PRN (08:00)
[2019-12-11] MEDS: furosemide 40mg tablet PO SCH ×2 (08:00→13:13)
[2019-12-11] MEDS ORDERED: pantoprazole 40mg Tablet.DR PO SCH (08:00)
[2019-12-11] MEDS ORDERED: heparin 1,000 units/ml 10ml inj IV ONE (08:00)
[2019-12-11] MEDS ORDERED: epoetin 20,000 units/ml inj IV ONE (08:00)
[2019-12-11] MEDS ORDERED: diltiazem CD 180mg cap (once-daily) PO SCH (08:00)
[2019-12-11] MEDS ORDERED: losartan 50mg tablet PO SCH (08:00)
[2019-12-11] MEDS ORDERED: heparin 1,000unit/ml 10ml vial 10 ML IV ONE (08:00)
[2019-12-11] MEDS: hydrALAZINE 25 MG tablet PO SCH ×2 (08:00→13:13)
[2019-12-11] MEDS ORDERED: aspirin 325mg tablet PO SCH (08:30)
--- NOTE | 2019-12-11 15:15 | NUR ---
Pt DC to home with family. Pt A & O x4 and in non apparent distress. Pt verbalizes understanding of all DC orders and knows the importance of following up with Dr Vasquez as well as having her Dialysis today at home. Pt states she has been doing Dialysis for 20 years, pt able to teach back the process and directions. Pt's IV cath was removed intact. Pt packed her belongings and dressed herself to go home. Pt has no new medications. Pt wheeled to the front where her daughter picked her up.
== END 2019-12-11 16:41 | disposition home or self-care (01) | DRG 313 ==
LOC: ER 13:03 → ED HOLD 14:40 → PCU 3S 18:50
PROVIDERS: ADMIT Internal Medicine Critical Care Medicine; ATTEND Internal Medicine Critical Care Medicine
PROC: 4A02XM4 Measurement of Cardiac Total Activity, External Approach (ICD-10-PCS; principal; 2019-12-11)
PROC: 3E073KZ Introduction of Other Diagnostic Substance into Coronary Artery, Percutaneous Approach (ICD-10-PCS; 2019-12-11)
DX: R07.9 Chest pain, unspecified (principal); N18.6 End stage renal disease; I12.0 Hypertensive chronic kidney disease with stage 5 chronic kidney disease or end stage renal disease; N25.81 Secondary hyperparathyroidism of renal origin; D63.1 Anemia in chronic kidney disease; J44.9 Chronic obstructive pulmonary disease, unspecified; Z90.710 Acquired absence of both cervix and uterus; Z93.2 Ileostomy status; Z99.2 Dependence on renal dialysis; Z88.2 Allergy status to sulfonamides; Z88.5 Allergy status to narcotic agent; Z88.8 Allergy status to other drugs, medicaments and biological substances; Z79.899 Other long term (current) drug therapy; Z91.011 Allergy to milk products
CPT/HCPCS: 36415; 71045; 78452; 80048; 80053; 82948; 83735; 83880; 84100; 84484; 85007; 85025; 85610; 85730; 87081; 93005; 93017; 93306; 99285; A9500; G0378; J1650; J2785

== ENCOUNTER 2020-05-21 16:52 | Emergency (ER) | payer MEDICARE, OTHER ==
[~2020-05-21] VITALS: Ht 157.5 cm; Wt 86.4 kg
[~2020-05-21 16:52] MED LIST changes: +ACET-1008 PO; -CALC500T11 PO; -CARV25TA2 PO; +EPOE200015 SQ; +ERGO500054 PO; -ONDA4TAB6 PO
[2020-05-21 17:18] LABS: BASOPHILS # (AUTO) 0.1 X10'3 (0-0.2); EOSINOPHILS % (AUTO) 0.3 % (0-6); HEMATOCRIT 31.7 % (35.0-45.0); HEMOGLOBIN 10.6 g/dl (12.0-16.0); LYMPHOCYTES # (AUTO) 0.8 X10'3 (1.1-4.8); LYMPHOCYTES % (AUTO) 21.2 % (21-51); MEAN CORPUSCULAR HEMOGLOBIN 28.2 PG (27.0-31.0); MEAN CORPUSCULAR HGB CONC 33.3 g/dL (33.0-36.5); MEAN CORPUSCULAR VOLUME 84.5 FL (78-98); MEAN PLATELET VOLUME 8.5 FL (7.4-10.4); MONOCYTES # (AUTO) 0.5 X10'3 (0-0.9); MONOCYTES % (AUTO) 13.6 % (2-12); NEUTROPHILS # (AUTO) 2.4 X10'3 (1.8-7.7); NEUTROPHILS % (AUTO) 62.9 % (42-75); PLATELET COUNT 94 X10'3 (140-440); RED BLOOD COUNT 3.75 X10'6 (4.20-5.60); WHITE BLOOD COUNT 3.8 X10'3 (4.5-11.0)
[2020-05-21 17:31] LABS: ALANINE AMINOTRANSFERASE 21 U/L (12-78); ALBUMIN 3.8 G/DL (3.4-5.0); ALBUMIN/GLOBULIN RATIO 1.2 (1.1-1.5); ALKALINE PHOSPHATASE 216 IU/L (46-116); ANION GAP 11 (8-16); ASPARTATE AMINO TRANSFERASE 16 U/L (10-37); BILIRUBIN,TOTAL 0.8 MG/DL (0.1-1.0); BLOOD UREA NITROGEN 33 MG/DL (7-18); CHLORIDE 89 MMOL/L (99-107); CREATININE 6.56 MG/DL (0.40-0.90); GLUCOSE 98 MG/DL (70-104); POTASSIUM 4.4 MMOL/L (3.5-5.1); SODIUM 125 MMOL/L (135-145); TOTAL CARBON DIOXIDE 25.1 MMOL/L (24-32); TOTAL PROTEIN 7.1 G/DL (6.4-8.2); eGFR 6 ML/MIN
[2020-05-21 17:39] LABS: TROPONIN I < 0.04 NG/ML (0.0-0.05)
[2020-05-21] MEDS ORDERED: furosemide 20MG tablet PO ONE (18:00)
[2020-05-21 18:28] VITALS: BP 173/113
== END 2020-05-21 18:43 | disposition home or self-care (01) ==
LOC: ER 16:53
DX: E87.70 Fluid overload, unspecified (principal); R06.00 Dyspnea, unspecified; N18.6 End stage renal disease; I12.0 Hypertensive chronic kidney disease with stage 5 chronic kidney disease or end stage renal disease; Z99.2 Dependence on renal dialysis; Z90.710 Acquired absence of both cervix and uterus; Z88.2 Allergy status to sulfonamides; Z88.1 Allergy status to other antibiotic agents; Z88.8 Allergy status to other drugs, medicaments and biological substances; Z91.011 Allergy to milk products; Z79.899 Other long term (current) drug therapy
CPT/HCPCS: 36415; 71045; 80053; 83880; 84145; 84484; 85025; 87502; 87503; 99284

== ENCOUNTER 2020-07-27 12:26 | Emergency (ER) | payer MEDICARE, OTHER ==
[~2020-07-27] VITALS: Ht 157.5 cm; Wt 84.5 kg
[~2020-07-27 12:26] MED LIST changes: -ACET-1008 PO; +ASCO500C17 PO; +ASPI-1071 PO; +ATOR20TA66 PO; +CALC500T11 PO; -CLON0.1T2 PO; -DILT180C53 PO; +DOCU-148 PO; +LOP25T PO; +ONDA4TAB6 PO; +OXYC-150 PO; +UBID200C18 PO; -ZOLP5TAB8 PO
[2020-07-27 14:54] LABS: EOSINOPHILS % (AUTO) 0 % (0-6); HEMOGLOBIN 11.1 g/dl (12.0-16.0); LYMPHOCYTES # (AUTO) 0.8 X10'3 (1.1-4.8); MEAN CORPUSCULAR VOLUME 90.2 FL (78-98); MONOCYTES # (AUTO) 0.5 X10'3 (0-0.9); MONOCYTES % (AUTO) 14.7 % (2-12)
[2020-07-27 14:56] LABS: BASOPHILS % (AUTO) 1.1 % (0-1); LYMPHOCYTES % (AUTO) 24.7 % (21-51); MEAN CORPUSCULAR HEMOGLOBIN 29.4 PG (27.0-31.0); MEAN CORPUSCULAR HGB CONC 32.6 g/dL (33.0-36.5); MEAN PLATELET VOLUME 8.5 FL (7.4-10.4); NEUTROPHILS % (AUTO) 59.5 % (42-75); PLATELET COUNT 191 X10'3 (140-440); RED BLOOD COUNT 3.77 X10'6 (4.20-5.60); RED CELL DISTRIBUTION WIDTH 16.2 % (11.5-14.5); WHITE BLOOD COUNT 3.3 X10'3 (4.5-11.0)
[2020-07-27 15:13] LABS: ANION GAP 13 (8-16); CHLORIDE 94 MMOL/L (99-107); POTASSIUM 3.9 MMOL/L (3.5-5.1); SODIUM 136 MMOL/L (135-145); TOTAL CARBON DIOXIDE 29.4 MMOL/L (24-32)
[2020-07-27 15:48] LABS: ALANINE AMINOTRANSFERASE 12 U/L (12-78); ALBUMIN 3.7 G/DL (3.4-5.0); ALBUMIN/GLOBULIN RATIO 1.1 (1.1-1.5); ALKALINE PHOSPHATASE 120 IU/L (46-116); ASPARTATE AMINO TRANSFERASE 17 U/L (10-37); BILIRUBIN,TOTAL 0.6 MG/DL (0.1-1.0); BLOOD UREA NITROGEN 22 MG/DL (7-18); BUN/CREATININE RATIO 3.2 (6.6-38.0); CALCIUM 8.4 MG/DL (8.5-10.1); CREATININE 6.95 MG/DL (0.40-0.90); GLUCOSE 86 MG/DL (70-104); LIPASE 59 U/L (73-393); TOTAL PROTEIN 7.2 G/DL (6.4-8.2); eGFR 6 ML/MIN
[2020-07-27 17:31] LABS: CLARITY,URINE CLOUDY (Clear); COLOR,URINE STRAW (Yellow); GLUCOSE, URINE NEGATIVE (Neg); KETONES,URINE NEGATIVE (Neg); LEUKOCYTE ESTERASE ,URINE LARGE (Neg); NITRITES, URINE NEGATIVE (Neg); OCCULT BLOOD,URINE NEGATIVE (Neg); PROTEIN,URINE 100 mg/dl (Neg); UA COLLECTION TYPE CLN CATCH MIDSTREAM; UROBILINOGEN,URINE 0.2 E.U/dL (0.2-1.0)
[2020-07-27 17:37] LABS: SQUAMOUS EPITHELIAL CELL,UR MANY /LPF (FEW)
[2020-07-27 17:38] LABS: TRANSITIONAL EPI CELLS,URINE FEW /HPF
[2020-07-27 17:39] LABS: BACTERIA,URINE 4+ /HPF (Neg); RBC,URINE 0-2 /HPF (0-2); WBC,URINE 30-50 /HPF (0-4)
[2020-07-27] MEDS ORDERED: ondansetron 4mg rapidly disintigrating tab PO ONE (19:40)
[2020-07-27 20:30] VITALS: BP 170/86
== END 2020-07-27 20:33 | disposition home or self-care (01) ==
LOC: ER 12:26
DX: I12.0 Hypertensive chronic kidney disease with stage 5 chronic kidney disease or end stage renal disease (principal); N18.6 End stage renal disease; Z99.2 Dependence on renal dialysis; R11.2 Nausea with vomiting, unspecified; R10.11 Right upper quadrant pain; Z88.2 Allergy status to sulfonamides; Z88.1 Allergy status to other antibiotic agents; Z88.5 Allergy status to narcotic agent; Z88.8 Allergy status to other drugs, medicaments and biological substances; Z91.011 Allergy to milk products
CPT/HCPCS: 36415; 74176; 80053; 81001; 83605; 83690; 85025; 99284

== ENCOUNTER 2020-08-02 14:35 | Emergency (ER) | payer MEDICARE ==
[~2020-08-02] VITALS: Ht 157.5 cm; Wt 83.2 kg
[2020-08-02] MEDS ORDERED: oxyCODONE/APAP 10/325mg tablet PO ONE (15:55)
--- NOTE | 2020-08-02 17:16 | NUR ---
REMINDED PT FOR NEED OF UA. BEDSIDE COMMODE IN ROOM.
[2020-08-02] MEDS ORDERED: ondansetron 4mg rapidly disintigrating tab PO ONE (17:25)
[2020-08-02] MEDS ORDERED: ibuprofen tablet 400 MG TABLET PO ONE (17:25)
[2020-08-02 18:24] LABS: CLARITY,URINE SLIGHTLY CLOUDY (Clear); COLOR,URINE STRAW (Yellow); GLUCOSE, URINE NEGATIVE (Neg); KETONES,URINE NEGATIVE (Neg); LEUKOCYTE ESTERASE ,URINE NEGATIVE (Neg); NITRITES, URINE NEGATIVE (Neg); OCCULT BLOOD,URINE NEGATIVE (Neg); PROTEIN,URINE 100 mg/dl (Neg); UROBILINOGEN,URINE 0.2 E.U/dL (0.2-1.0)
[2020-08-02 18:25] LABS: UA COLLECTION TYPE NON-SPECIFIED
[2020-08-02 18:30] LABS: SQUAMOUS EPITHELIAL CELL,UR MODERATE /LPF (FEW)
[2020-08-02 18:31] LABS: BACTERIA,URINE FEW /HPF (Neg); RBC,URINE 0-2 /HPF (0-2); WBC,URINE 0-4 /HPF (0-4)
[2020-08-02 19:10] VITALS: BP 156/75
== END 2020-08-02 19:12 | disposition home or self-care (01) ==
LOC: ER 14:35
DX: M54.6 Pain in thoracic spine (principal); R05 Cough; I12.9 Hypertensive chronic kidney disease with stage 1 through stage 4 chronic kidney disease, or unspecified chronic kidney disease; N18.9 Chronic kidney disease, unspecified; Z88.1 Allergy status to other antibiotic agents; Z88.2 Allergy status to sulfonamides; Z88.8 Allergy status to other drugs, medicaments and biological substances; Z88.5 Allergy status to narcotic agent; Z91.011 Allergy to milk products; Z91.018 Allergy to other foods
CPT/HCPCS: 81001; 99284

== ENCOUNTER → 2020-11-17 | Emergency (ER) | payer MEDICARE, OTHER ==
[~2020-11-17] VITALS: Ht 157.5 cm; Wt 78.5 kg
[2020-11-17 16:05] LABS: EOSINOPHILS % (AUTO) 0 % (0-6); HEMATOCRIT 30.1 % (35.0-45.0); LYMPHOCYTES # (AUTO) 0.9 X10'3 (1.1-4.8); MEAN CORPUSCULAR HEMOGLOBIN 29.5 PG (27.0-31.0); MONOCYTES # (AUTO) 0.5 X10'3 (0-0.9); NEUTROPHILS # (AUTO) 1.7 X10'3 (1.8-7.7); PLATELET COUNT 180 X10'3 (140-440); WHITE BLOOD COUNT 3.2 X10'3 (4.5-11.0)
[2020-11-17 16:07] LABS: BASOPHILS % (AUTO) 1.4 % (0-1); HEMOGLOBIN 10.1 g/dl (12.0-16.0); LYMPHOCYTES % (AUTO) 28.4 % (21-51); MEAN CORPUSCULAR HGB CONC 33.4 g/dL (33.0-36.5); MEAN CORPUSCULAR VOLUME 88.3 FL (78-98); MEAN PLATELET VOLUME 9.1 FL (7.4-10.4); MONOCYTES % (AUTO) 16.4 % (2-12); NEUTROPHILS % (AUTO) 53.8 % (42-75); RED BLOOD COUNT 3.41 X10'6 (4.20-5.60); RED CELL DISTRIBUTION WIDTH 15.3 % (11.5-14.5)
[2020-11-17 16:20] LABS: ALANINE AMINOTRANSFERASE 22 U/L (12-78); ALBUMIN 3.3 G/DL (3.4-5.0); ALBUMIN/GLOBULIN RATIO 1.1 (1.1-1.5); ALKALINE PHOSPHATASE 130 IU/L (46-116); ANION GAP 9 (8-16); ASPARTATE AMINO TRANSFERASE 15 U/L (10-37); BILIRUBIN,TOTAL 0.7 MG/DL (0.1-1.0); BLOOD UREA NITROGEN 27 MG/DL (7-18); BUN/CREATININE RATIO 5.1 (6.6-38.0); CALCIUM 8.9 MG/DL (8.5-10.1); CHLORIDE 98 MMOL/L (99-107); GLUCOSE 90 MG/DL (70-104); POTASSIUM 3.6 MMOL/L (3.5-5.1); SODIUM 134 MMOL/L (135-145); TOTAL CARBON DIOXIDE 26.8 MMOL/L (24-32); TOTAL PROTEIN 6.3 G/DL (6.4-8.2); eGFR 8 ML/MIN
[2020-11-17 17:50] VITALS: BP 160/71
== END | disposition home or self-care (01) ==
LOC: ER 14:10
DX: R07.89 Other chest pain (principal); I12.9 Hypertensive chronic kidney disease with stage 1 through stage 4 chronic kidney disease, or unspecified chronic kidney disease; N18.6 End stage renal disease; Z99.2 Dependence on renal dialysis; Z90.710 Acquired absence of both cervix and uterus; Z98.890 Other specified postprocedural states; Z79.899 Other long term (current) drug therapy; Z79.82 Long term (current) use of aspirin; Z88.1 Allergy status to other antibiotic agents; Z88.2 Allergy status to sulfonamides; Z88.8 Allergy status to other drugs, medicaments and biological substances; Z91.011 Allergy to milk products; Z95.5 Presence of coronary angioplasty implant and graft
CPT/HCPCS: 71045; 80053; 84484; 85025; 93005; 99285

== ENCOUNTER 2021-04-04 14:03 | Emergency (ER) | payer MEDICARE, OTHER ==
[~2021-04-04] VITALS: Ht 157.5 cm; Wt 87.0 kg
[~2021-04-04 14:03] MED LIST changes: -OMEP-50 PO; +OMEP20CA16 PO
[2021-04-04 14:32] VITALS: BP 105/66
== END 2021-04-04 17:28 | disposition home or self-care (01) ==
LOC: ER 14:04
DX: S00.03XA Contusion of scalp, initial encounter (principal); S00.11XA Contusion of right eyelid and periocular area, initial encounter; R51.9 Headache, unspecified; I12.0 Hypertensive chronic kidney disease with stage 5 chronic kidney disease or end stage renal disease; N18.6 End stage renal disease; Z99.2 Dependence on renal dialysis; Z90.710 Acquired absence of both cervix and uterus; Z98.890 Other specified postprocedural states; Z88.1 Allergy status to other antibiotic agents; Z88.2 Allergy status to sulfonamides; Z88.5 Allergy status to narcotic agent; Z88.8 Allergy status to other drugs, medicaments and biological substances; Z91.011 Allergy to milk products; Z79.82 Long term (current) use of aspirin; Z79.899 Other long term (current) drug therapy; W19.XXXA Unspecified fall, initial encounter; Y93.89 Activity, other specified; Y92.89 Other specified places as the place of occurrence of the external cause; Y99.8 Other external cause status
CPT/HCPCS: 70450; 70486; 72125; 99284

== ENCOUNTER 2021-07-12 18:31 | Emergency (ER) | payer MEDICARE, OTHER ==
[~2021-07-12] VITALS: Ht 157.5 cm; Wt 92.3 kg
[2021-07-12 18:42] VITALS: BP 146/71
[2021-07-12 19:20] LABS: BASOPHILS % (AUTO) 1.3 % (0-1); EOSINOPHILS % (AUTO) 0 % (0-6); HEMOGLOBIN 11.2 g/dl (12.0-16.0); LYMPHOCYTES # (AUTO) 0.9 X10'3 (1.1-4.8); LYMPHOCYTES % (AUTO) 23.7 % (21-51); MEAN CORPUSCULAR HEMOGLOBIN 29.2 PG (27.0-31.0); MEAN CORPUSCULAR HGB CONC 31.9 g/dL (33.0-36.5); MEAN CORPUSCULAR VOLUME 91.5 FL (78-98); MEAN PLATELET VOLUME 8.8 FL (7.4-10.4); MONOCYTES # (AUTO) 0.7 X10'3 (0-0.9); PLATELET COUNT 185 X10'3 (140-440); RED BLOOD COUNT 3.83 X10'6 (4.20-5.60); RED CELL DISTRIBUTION WIDTH 16.7 % (11.5-14.5); WHITE BLOOD COUNT 3.7 X10'3 (4.5-11.0)
[2021-07-12 19:56] LABS: ALANINE AMINOTRANSFERASE 15 U/L (12-78); ALBUMIN 3.3 G/DL (3.4-5.0); ALKALINE PHOSPHATASE 131 IU/L (46-116); ANION GAP 7 (8-16); ASPARTATE AMINO TRANSFERASE 20 U/L (10-37); BILIRUBIN,TOTAL 0.5 MG/DL (0.1-1.0); BLOOD UREA NITROGEN 18 MG/DL (7-18); BUN/CREATININE RATIO 3.2 (6.6-38.0); CALCIUM 8.3 MG/DL (8.5-10.1); CHLORIDE 96 MMOL/L (99-107); CREATININE 5.59 MG/DL (0.40-0.90); GLUCOSE 88 MG/DL (70-104); POTASSIUM 4.4 MMOL/L (3.5-5.1); SODIUM 135 MMOL/L (135-145); TOTAL CARBON DIOXIDE 32.1 MMOL/L (24-32); TOTAL PROTEIN 6.7 G/DL (6.4-8.2); eGFR 7 ML/MIN
[2021-07-12 21:06] LABS: TOTAL CELLS COUNTED 100
[2021-07-12 21:07] LABS: PLATELET ESTIMATE NORMAL
== END 2021-07-12 21:04 | disposition left against medical advice (07) ==
LOC: ER 18:33
DX: N93.9 Abnormal uterine and vaginal bleeding, unspecified (principal); Z53.21 Procedure and treatment not carried out due to patient leaving prior to being seen by health care provider
CPT/HCPCS: 36415; 80053; 85007; 85025

== ENCOUNTER 2021-08-06 20:36 | Inpatient (IN) | payer MEDICARE, OTHER ==
[~2021-08-06] VITALS: Ht 157.5 cm; Wt 86.4 kg
--- NOTE | 2021-08-06 21:10 | NUR ---
PT HAS ARRIVED WITH DIALYSIS SETUP IN PLACE. COORDINATOR CARDIOPULMONARY SERVICES AWARE. CORN DETASSELER AWARE.
[2021-08-06 21:16] LABS: BASOPHILS # (AUTO) 0.1 X10'3 (0-0.2); BASOPHILS % (AUTO) 1.8 % (0-1); EOSINOPHILS % (AUTO) 0.1 % (0-6); HEMATOCRIT 35.4 % (35.0-45.0); HEMOGLOBIN 11.7 g/dl (12.0-16.0); LYMPHOCYTES # (AUTO) 0.8 X10'3 (1.1-4.8); LYMPHOCYTES % (AUTO) 21.3 % (21-51); MEAN CORPUSCULAR HEMOGLOBIN 29.8 PG (27.0-31.0); MEAN CORPUSCULAR VOLUME 90.4 FL (78-98); MONOCYTES # (AUTO) 0.4 X10'3 (0-0.9); MONOCYTES % (AUTO) 10.1 % (2-12); NEUTROPHILS # (AUTO) 2.4 X10'3 (1.8-7.7); NEUTROPHILS % (AUTO) 66.7 % (42-75); PLATELET COUNT 174 X10'3 (140-440); RED BLOOD COUNT 3.91 X10'6 (4.20-5.60); RED CELL DISTRIBUTION WIDTH 15.2 % (11.5-14.5); WHITE BLOOD COUNT 3.7 X10'3 (4.5-11.0)
[2021-08-06 21:32] LABS: ALANINE AMINOTRANSFERASE 13 U/L (12-78); ALBUMIN 3.3 G/DL (3.4-5.0); ALKALINE PHOSPHATASE 160 IU/L (46-116); ANION GAP 10 (8-16); ASPARTATE AMINO TRANSFERASE 17 U/L (10-37); BILIRUBIN,TOTAL 0.5 MG/DL (0.1-1.0); BLOOD UREA NITROGEN 20 MG/DL (7-18); BUN/CREATININE RATIO 3.8 (6.6-38.0); CALCIUM 8.5 MG/DL (8.5-10.1); CHLORIDE 95 MMOL/L (99-107); GLUCOSE 109 MG/DL (70-104); POTASSIUM 3.6 MMOL/L (3.5-5.1); SODIUM 135 MMOL/L (135-145); TOTAL CARBON DIOXIDE 30.1 MMOL/L (24-32); TOTAL PROTEIN 6.6 G/DL (6.4-8.2); eGFR 8 ML/MIN
[2021-08-07] VITALS (9 sets, daily range): BP systolic 126–181; BP diastolic 60–79
[2021-08-07] MEDS ORDERED: PERFLUTREN PROTEIN-A MICROSPHR (Optison) 0.22 MG/ML 3ML VIAL IV ONE (01:35)
[2021-08-07] MEDS: normal saline 1000ml 1,000 ML IV SCH ×3 (01:40→19:50)
--- NOTE | 2021-08-07 04:14 | NUR ---
Received report from [employer] FIRM ACCOUNTS MANAGER.Patient arrived via gurney. RN transporting. After getting patient settled into bed I asked if she was experiencing chest pain. She said; that I am experiencing chest pain and has been prior to coming up to unit. She did not inform the ED RN. Pain is at 3, and is in the middle of her chest, radiating up to the neck. State; " It feels like someone is gripping my chest". EKG is being done. VS 173/75 HR 72 Resp 17 . EKG has been done and Dr Callaway will be called
[2021-08-07] MEDS ORDERED: nitroGLYCERIN 0.4mg SUBLingual tab SL PRN (04:25)
--- NOTE | 2021-08-07 04:40 | NUR ---
0420 Orders received for Nitro Patch and Nitro tablet. EKG was signed off by Dr Callaway
[2021-08-07] MEDS ORDERED: nitroGLYCERIN 0.4mg/hour patch TD ONE (05:01)
[2021-08-07] MEDS ORDERED: ATOR20TA66 PO (05:39)
[2021-08-07] MEDS ORDERED: ASPI-500 PO (05:39)
--- NOTE | 2021-08-07 05:40 | NUR ---
Patient has home dialysis and arrived to hospital with set up in place. Fistula is in the left forearm
--- NOTE | 2021-08-07 06:24 | NUR ---
Report given to MONIQUE Zuniga
--- NOTE | 2021-08-07 06:43 | NUR ---
Patient in room PCU 3025. I have received report from Durga AMAYA and had the opportunity to ask questions and assume patient care.
[2021-08-07] MEDS ORDERED: nitroGLYCERIN 0.4mg/hour patch TD SCH (08:00)
[2021-08-07] MEDS ORDERED: non-formulary drug (Ubidecarenone (Co Q-10) 100 MG) PO SCH (08:00)
[2021-08-07] MEDS: calcium carbonate 500mg tablet PO SCH ×3 (09:47→19:50)
[2021-08-07] MEDS: losartan 50mg tablet PO SCH (09:47)
[2021-08-07] MEDS: metoprolol tartrate 25mg tablet PO SCH ×2 (09:47→19:49)
[2021-08-07] MEDS: pantoprazole 40mg Tablet.DR PO SCH (09:47)
[2021-08-07] MEDS: acetaminophen 325mg tablet PO PRN (09:48)
[2021-08-07] MEDS: aspirin 81mg, enteric-coated 1 TAB TABLET.DR PO SCH (09:48)
[2021-08-07] MEDS: ascorbic acid 500mg tablet PO SCH (09:48)
[2021-08-07] MEDS: atorvastatin 20mg tablet PO SCH (09:48)
[2021-08-07] MEDS ORDERED: verapamil 2.5 mg/ml inj IV ONE (13:37)
[2021-08-07] MEDS ORDERED: heparin 1,000unit/ml 10ml vial 10 ML ONE ×2 (13:37→16:07)
[2021-08-07] MEDS ORDERED: fentaNYL/PF 50MCG/1 ML 2ML syringe ONE ×2 (13:37→15:08)
[2021-08-07] MEDS ORDERED: iohexol 350MG/ML 100ml bottle IV ONE ×5 (13:37→16:08)
[2021-08-07] MEDS ORDERED: midazolam 1 mg/ML 2ml injection ONE ×2 (13:37→15:08)
[2021-08-07] MEDS ORDERED: nitroGLYCERIN-Tridil 50MG/D5W 0 ML IV ONE (13:37)
[2021-08-07] MEDS ORDERED: LIDOcaine 1% 30ml preserv. free vial ONE ×2 (13:46→15:08)
[2021-08-07] MEDS ORDERED: clopidogrel 300mg tablet ONE (14:24)
[2021-08-07] MEDS ORDERED: hydrALAZINE 20mg/ml inj. IV ONE (14:36)
[2021-08-07] MEDS ORDERED: ondansetron/PF 4mg/2ml inj ONE (14:41)
[2021-08-07] MEDS ORDERED: nitroGLYCERIN 0.4mg SUBLingual tab SL ONE (14:52)
[2021-08-07] MEDS ORDERED: nitroGLYCERIN-Tridil 50MG/D5W 250 ML IV ONE ×2 (15:34→15:51)
[2021-08-07] MEDS ORDERED: iohexol 350 MG/ML 50ML vial IV ONE (16:22)
[2021-08-07] MEDS ORDERED: morphine 2 MG/ML inj. syringe ONE (16:50)
--- NOTE | 2021-08-07 17:06 | NUR ---
Patient being transferred from entry level lab technician to ICU. Report given to MONIQUE at 170 Addendum: 08/07/21 at 1707 by Arelis Pierson RN 1700
[2021-08-07] MEDS ORDERED: morphine/NS 1 mg/ml 50ml CADD 50 ML IV SCH ×2 (17:10→17:27)
--- NOTE | 2021-08-07 17:21 | NUR ---
RECEIVED FROM MARKETING TECHNOLOGY COORDINATOR. NTG AT 50, IABP 1:1 SBP 146 AUG 140, PEDAL AND RADIAL PULSES PALP BILATERALLY, DR CONCEPCION AT BEDSIDE
--- NOTE | 2021-08-07 17:24 | NUR ---
IABP INTRODUCER TRANSDUCED, BUT IABP CATHETER NOT TRANSDUCED, PROGRAM/MUSIC DIRECTOR RN STATES TOLD IS DOESNT NEED TO BE TRANSDUCED
[2021-08-07] MEDS ORDERED: nitroGLYCERIN-Tridil 50MG/D5W 250 ML IV PRN (18:25)
[2021-08-07] MEDS ORDERED: HYDROcodone/acetaminophen 5mg/325mg tablet PO PRN (18:25)
[2021-08-07] MEDS ORDERED: HYDROcodone/acetaminophen 10/325mg tab PO PRN (18:25)
--- NOTE | 2021-08-07 18:30 | NUR ---
Patient in room CICU 2014. I have received report from Adamaris Cummins RN and had the opportunity to ask questions and assume patient care.
[2021-08-07] MEDS ORDERED: PCA WASTE DOCUMENTATION MC SCH (19:25)
[2021-08-07] MEDS ORDERED: naloxone 0.4 mg/ml inj IV PRN (19:25)
[2021-08-07] MEDS ORDERED: normal saline 1000ml 1,000 ML IV SCH (19:25)
[2021-08-07] MEDS ORDERED: morphine/NS PCA 1mg/ml 50ml 50 ML IV SCH ×3 (19:25→22:46)
--- NOTE | 2021-08-07 19:30 | NUR ---
Call placed to manager web application ICU MD over current CADD orders. Current order states for Morphine to infuse at 2.5mg/hr continuous and MD notified d/t concerns of possibly overmedicating PT. New order received to have 0mg basal rate and 1mg bolus with 10min lock out. Orders placed in [employer] and will administer as orders. Will continue to monitor.
--- NOTE | 2021-08-07 20:45 | NUR ---
Drsg changed to IABP insertion site d/t continuous oozing. When old Drsg was removed a slight gap was found between the IABP catheter and sheath which is where the oozing was noted to be coming from. Connection secured and there is no oozing noted at this time. Drsg re-applied in sterile fashion. PT tolerated well. Will continue to monitor.
[2021-08-07] MEDS: MORPHINE PCA 1 MG/ML IV SCH ×2 (22:51→23:00)
--- NOTE | 2021-08-07 23:02 | NUR ---
drafter plumbing at bedside to fix Morphine CLINICAL SPECIALTY REP order. Nursing unable to scan Medication when initially hung around 1900 d/t changing order. Multiple attempts top fix order with no effect. [facility] to [id number] Nursing unable to scan or even administer via [facility] d/t order stating 0mg/hr, [facility] would not accept a rate of Zero. Order finally fixed and has now been documented in [facility]. Morphine CLINICAL SPECIALTY REP has continued to run with a 1mg demand dose and with 10min lockout. There has not been a basal rate.
--- NOTE | 2021-08-07 23:15 | NUR ---
Drsg to RT groin continues to be CDI with no oozing noted. Will continue to monitor.
[2021-08-08] VITALS (24 sets, daily range): BP systolic 113–181; BP diastolic 50–110
[2021-08-08] MEDS: MORPHINE PCA 1 MG/ML IV SCH ×11 (01:00→23:00)
[2021-08-08] MEDS: ondansetron/PF 4mg/2ml inj IV PRN ×3 (02:41→21:14)
--- NOTE | 2021-08-08 03:00 | NUR ---
PT is resting comfortably. VSS. Drsg to RT groin remains CDI. Will continue to monitor.
[2021-08-08 03:20] LABS: BASOPHILS # (AUTO) 0.1 X10'3 (0-0.2); BASOPHILS % (AUTO) 1.3 % (0-1); EOSINOPHILS % (AUTO) 0 % (0-6); HEMATOCRIT 30.2 % (35.0-45.0); HEMOGLOBIN 10.1 g/dl (12.0-16.0); LYMPHOCYTES # (AUTO) 0.6 X10'3 (1.1-4.8); LYMPHOCYTES % (AUTO) 15.5 % (21-51); MEAN CORPUSCULAR HEMOGLOBIN 31.3 PG (27.0-31.0); MEAN CORPUSCULAR HGB CONC 33.4 g/dL (33.0-36.5); MEAN CORPUSCULAR VOLUME 93.6 FL (78-98); MEAN PLATELET VOLUME 9.2 FL (7.4-10.4); MONOCYTES # (AUTO) 0.5 X10'3 (0-0.9); MONOCYTES % (AUTO) 13.6 % (2-12); NEUTROPHILS # (AUTO) 2.7 X10'3 (1.8-7.7); NEUTROPHILS % (AUTO) 69.6 % (42-75); PLATELET COUNT 165 X10'3 (140-440); RED BLOOD COUNT 3.22 X10'6 (4.20-5.60); RED CELL DISTRIBUTION WIDTH 15.1 % (11.5-14.5); WHITE BLOOD COUNT 3.8 X10'3 (4.5-11.0)
[2021-08-08 03:31] LABS: ALANINE AMINOTRANSFERASE 10 U/L (12-78); ALBUMIN 2.7 G/DL (3.4-5.0); ALBUMIN/GLOBULIN RATIO 0.9 (1.1-1.5); ALKALINE PHOSPHATASE 116 IU/L (46-116); ANION GAP 12 (8-16); ASPARTATE AMINO TRANSFERASE 19 U/L (10-37); BILIRUBIN,TOTAL 0.4 MG/DL (0.1-1.0); BLOOD UREA NITROGEN 27 MG/DL (7-18); CALCIUM 7.8 MG/DL (8.5-10.1); CHLORIDE 99 MMOL/L (99-107); CREATININE 6.72 MG/DL (0.40-0.90); GLUCOSE 90 MG/DL (70-104); POTASSIUM 4.3 MMOL/L (3.5-5.1); SODIUM 135 MMOL/L (135-145); TOTAL CARBON DIOXIDE 24.3 MMOL/L (24-32); TOTAL PROTEIN 5.6 G/DL (6.4-8.2); eGFR 6 ML/MIN
[2021-08-08] MEDS: normal saline 1000ml 1,000 ML IV SCH ×2 (05:03→17:35)
--- NOTE | 2021-08-08 06:18 | NUR ---
Problems reprioritized. Patient report given, questions answered & plan of care reviewed with Jason AMAYA.
[2021-08-08] MEDS: calcium carbonate 500mg tablet PO SCH ×3 (08:00→20:51)
[2021-08-08] MEDS: ascorbic acid 500mg tablet PO SCH (08:00)
[2021-08-08] MEDS: atorvastatin 20mg tablet PO SCH (08:00)
[2021-08-08] MEDS: metoprolol tartrate 25mg tablet PO SCH ×2 (08:00→19:31)
[2021-08-08] MEDS: losartan 50mg tablet PO SCH (08:00)
[2021-08-08] MEDS: aspirin 81mg, enteric-coated 1 TAB TABLET.DR PO SCH (08:00)
[2021-08-08] MEDS ORDERED: heparin 1,000 units/ml 10ml inj IV ONE (08:00)
[2021-08-08] MEDS: pantoprazole 40mg Tablet.DR PO SCH (08:00)
[2021-08-08] MEDS: clopidogrel 75mg tablet PO SCH (08:00)
[2021-08-08] MEDS ORDERED: normal saline 1000ml 250 ML IV PRN (08:00)
[2021-08-08] MEDS ORDERED: LIDOcaine 1% (10mg/ml) 2ml vial SQ ONE (08:00)
--- NOTE | 2021-08-08 14:01 | NUR ---
initially NTG was weaned down to 10mcg/min while pt sleeping. when a awake bp will go to 160's/110's. NTG adjusted
[2021-08-08] MEDS ORDERED: metoprolol tartrate 50mg tablet PO ONE (15:10)
[2021-08-08] MEDS ORDERED: losartan 25mg tablet PO SCH (15:10)
--- NOTE | 2021-08-08 18:20 | NUR ---
Patient in room CICU 2014. I have received report from Ivett AMAYA and had the opportunity to ask questions and assume patient care.
[2021-08-08] MEDS: acetaminophen 325mg tablet PO PRN (18:28)
--- NOTE | 2021-08-08 18:30 | NUR ---
Call placed to Dr Morris. No answer and message was left.
--- NOTE | 2021-08-08 19:52 | NUR ---
Dr Maite Vasquez called back, no new orders for anticoagulation, states that while on 1:1 on IABP her current orders are good. Also updated MD on PT's BP and the continued need for Nitro gtt and inability to titrate down much. Order received for 25mg Hydralazine TID. Will continue to monitor.
[2021-08-08] MEDS ORDERED: hydrALAZINE 25 MG tablet PO SCH (21:00)
[2021-08-09] VITALS (19 sets, daily range): BP systolic 108–165; BP diastolic 49–73
[2021-08-09] MEDS: MORPHINE PCA 1 MG/ML IV SCH ×5 (01:00→08:54)
[2021-08-09] MEDS: normal saline 1000ml 1,000 ML IV SCH ×2 (03:35→13:35)
[2021-08-09] MEDS: ondansetron/PF 4mg/2ml inj IV PRN ×2 (04:30→16:57)
[2021-08-09 05:19] LABS: BASOPHILS % (AUTO) 0.7 % (0-1); EOSINOPHILS % (AUTO) 0 % (0-6); HEMATOCRIT 31.9 % (35.0-45.0); HEMOGLOBIN 10.3 g/dl (12.0-16.0); LYMPHOCYTES # (AUTO) 0.7 X10'3 (1.1-4.8); LYMPHOCYTES % (AUTO) 16.1 % (21-51); MEAN CORPUSCULAR HEMOGLOBIN 30.4 PG (27.0-31.0); MEAN CORPUSCULAR HGB CONC 32.4 g/dL (33.0-36.5); MEAN PLATELET VOLUME 8.9 FL (7.4-10.4); MONOCYTES # (AUTO) 0.7 X10'3 (0-0.9); MONOCYTES % (AUTO) 17.6 % (2-12); NEUTROPHILS # (AUTO) 2.8 X10'3 (1.8-7.7); NEUTROPHILS % (AUTO) 65.6 % (42-75); PLATELET COUNT 141 X10'3 (140-440); RED BLOOD COUNT 3.39 X10'6 (4.20-5.60); RED CELL DISTRIBUTION WIDTH 15.5 % (11.5-14.5); WHITE BLOOD COUNT 4.2 X10'3 (4.5-11.0)
[2021-08-09 05:30] LABS: ALANINE AMINOTRANSFERASE 10 U/L (12-78); ALBUMIN 2.9 G/DL (3.4-5.0); ALKALINE PHOSPHATASE 114 IU/L (46-116); ANION GAP 12 (8-16); ASPARTATE AMINO TRANSFERASE 18 U/L (10-37); BILIRUBIN,TOTAL 0.5 MG/DL (0.1-1.0); BLOOD UREA NITROGEN 11 MG/DL (7-18); BUN/CREATININE RATIO 2.5 (6.6-38.0); CALCIUM 8.3 MG/DL (8.5-10.1); CHLORIDE 100 MMOL/L (99-107); CREATININE 4.36 MG/DL (0.40-0.90); GLUCOSE 83 MG/DL (70-104); POTASSIUM 4.1 MMOL/L (3.5-5.1); SODIUM 139 MMOL/L (135-145); TOTAL CARBON DIOXIDE 27.2 MMOL/L (24-32); TOTAL PROTEIN 5.8 G/DL (6.4-8.2); eGFR 10 ML/MIN
[2021-08-09 06:11] LABS: PLATELET ESTIMATE NORMAL; TOTAL CELLS COUNTED 100
--- NOTE | 2021-08-09 06:29 | NUR ---
Problems reprioritized. Patient report given, questions answered & plan of care reviewed with Mars AMAYA.
[2021-08-09] MEDS ORDERED: ondansetron/PF 4mg/2ml inj IV ONE (07:45)
[2021-08-09] MEDS ORDERED: metoclopramide 5 mg/ml inj IV ONE (07:45)
[2021-08-09] MEDS: pantoprazole 40mg Tablet.DR PO SCH (08:06)
[2021-08-09] MEDS: acetaminophen 325mg tablet PO PRN (08:06)
[2021-08-09] MEDS: ascorbic acid 500mg tablet PO SCH (08:07)
[2021-08-09] MEDS: atorvastatin 20mg tablet PO SCH (08:07)
[2021-08-09] MEDS: losartan 50mg tablet PO SCH (08:07)
[2021-08-09] MEDS: carVEDilol 12.5mg tablet PO SCH ×2 (08:07→20:11)
[2021-08-09] MEDS: aspirin 81mg, enteric-coated 1 TAB TABLET.DR PO SCH (08:07)
[2021-08-09] MEDS: calcium carbonate 500mg tablet PO SCH ×3 (08:07→20:12)
[2021-08-09] MEDS: clopidogrel 75mg tablet PO SCH (08:07)
[2021-08-09] MEDS: hydrALAZINE 25 MG tablet PO SCH ×3 (08:08→20:17)
--- NOTE | 2021-08-09 08:45 | NUR ---
Per Dr. Vasquez, keep patient supine for 2hours and start sitting up/moving around as tolerated. Okay to transfer to the floor if stable.
[2021-08-09 11:16] LABS: MAGNESIUM 1.7 MG/DL (1.5-2.4); PHOSPHORUS 3.4 MG/DL (2.3-4.5)
[2021-08-09 12:25] LABS: HBSAG SCREEN Negative (Negative)
--- NOTE | 2021-08-09 17:05 | NUR ---
Problems reprioritized. Patient report given, questions answered & plan of care reviewed with Xu AMAYA.
--- NOTE | 2021-08-09 18:03 | NUR ---
Received patient to room 3009 accompanied by x1 RN. Patient alert and oriented in no apparent acute distress. Right groin angioplasty site dressing cdi, soft and non tender. Patient sitting up in chair eating dinner. Call light placed within reach.
--- NOTE | 2021-08-09 18:15 | NUR ---
Problems reprioritized. Patient report given, questions answered & plan of care reviewed with MONIQUE Gallegos.
[2021-08-10 02:00] VITALS: BP 114/63
[2021-08-10 06:00] VITALS: BP 156/68
[2021-08-10 06:53] LABS: BASOPHILS % (AUTO) 1.1 % (0-1); EOSINOPHILS % (AUTO) 0 % (0-6); HEMATOCRIT 31.5 % (35.0-45.0); HEMOGLOBIN 10.2 g/dl (12.0-16.0); LYMPHOCYTES # (AUTO) 0.5 X10'3 (1.1-4.8); MEAN CORPUSCULAR HEMOGLOBIN 29.6 PG (27.0-31.0); MEAN CORPUSCULAR HGB CONC 32.3 g/dL (33.0-36.5); MEAN CORPUSCULAR VOLUME 91.6 FL (78-98); MONOCYTES # (AUTO) 0.6 X10'3 (0-0.9); MONOCYTES % (AUTO) 12.8 % (2-12); NEUTROPHILS # (AUTO) 3.3 X10'3 (1.8-7.7); NEUTROPHILS % (AUTO) 74.1 % (42-75); PLATELET COUNT 153 X10'3 (140-440); RED BLOOD COUNT 3.44 X10'6 (4.20-5.60); RED CELL DISTRIBUTION WIDTH 15.2 % (11.5-14.5); WHITE BLOOD COUNT 4.5 X10'3 (4.5-11.0)
--- NOTE | 2021-08-10 07:06 | NUR ---
Patient in room PCU 3009. I have received report from MONIQUE BULL, and had the opportunity to ask questions and assume patient care.
[2021-08-10 07:25] LABS: ALANINE AMINOTRANSFERASE 10 U/L (12-78); ALBUMIN 2.7 G/DL (3.4-5.0); ALBUMIN/GLOBULIN RATIO 0.9 (1.1-1.5); ALKALINE PHOSPHATASE 108 IU/L (46-116); ANION GAP 8 (8-16); ASPARTATE AMINO TRANSFERASE 21 U/L (10-37); BILIRUBIN,TOTAL 0.5 MG/DL (0.1-1.0); BLOOD UREA NITROGEN 21 MG/DL (7-18); BUN/CREATININE RATIO 3.3 (6.6-38.0); CALCIUM 8.3 MG/DL (8.5-10.1); CHLORIDE 102 MMOL/L (99-107); GLUCOSE 94 MG/DL (70-104); POTASSIUM 4.3 MMOL/L (3.5-5.1); SODIUM 137 MMOL/L (135-145); TOTAL CARBON DIOXIDE 27.4 MMOL/L (24-32); TOTAL PROTEIN 5.7 G/DL (6.4-8.2); eGFR 6 ML/MIN
[2021-08-10] MEDS ORDERED: heparin 1,000 units/ml 10ml inj IV ONE (08:00)
[2021-08-10] MEDS ORDERED: LIDOcaine 1% (10mg/ml) 2ml vial SQ ONE (08:00)
[2021-08-10] MEDS ORDERED: EPOETIN ALFA-EPBX 20,000 UNIT/ML 1 ML MDV IV ONE (08:00)
[2021-08-10] MEDS ORDERED: normal saline 1000ml 250 ML IV PRN (08:00)
[2021-08-10] MEDS: hydrALAZINE 25 MG tablet PO SCH ×3 (08:26→20:39)
[2021-08-10] MEDS: pantoprazole 40mg Tablet.DR PO SCH (08:26)
[2021-08-10] MEDS: losartan 50mg tablet PO SCH (08:27)
[2021-08-10] MEDS: clopidogrel 75mg tablet PO SCH (08:27)
[2021-08-10] MEDS: aspirin 81mg, enteric-coated 1 TAB TABLET.DR PO SCH (08:27)
[2021-08-10] MEDS: ascorbic acid 500mg tablet PO SCH (08:27)
[2021-08-10] MEDS: calcium carbonate 500mg tablet PO SCH ×3 (08:27→20:38)
[2021-08-10] MEDS: atorvastatin 20mg tablet PO SCH (08:27)
[2021-08-10] MEDS: carVEDilol 12.5mg tablet PO SCH ×2 (08:28→20:39)
[2021-08-10] MEDS ORDERED: PANT40TA54 PO (09:26)
[2021-08-10] MEDS ORDERED: CLOP75TA34 PO (09:26)
[2021-08-10] MEDS ORDERED: HYDR-4069 PO ×2 (09:26)
[2021-08-10] MEDS ORDERED: CARV-50 PO (09:26)
[2021-08-10 11:00] VITALS: BP 100/42
--- NOTE | 2021-08-10 11:05 | NUR ---
AMBULATED WITH PT PER MD REQUEST. PT WALKED 20 FEET WITH FWW, PT REPORTED FEELING WEAK AND UNSTEADY. PT REPORTS THERE ARE 9 STEPS TO ENTER HER HOUSE.
--- NOTE | 2021-08-10 13:05 | NUR ---
HYDRALAZINE HELD PT IS HAVING HD.
[2021-08-10 15:00] VITALS: BP 110/51
[2021-08-10 18:00] VITALS: BP 94/34
--- NOTE | 2021-08-10 18:31 | NUR ---
Problems reprioritized. Patient report given, questions answered & plan of care reviewed with MONIQUE SOLANO.
[2021-08-10 22:00] VITALS: BP 131/54
[2021-08-11] MEDS: acetaminophen 325mg tablet PO PRN (00:41)
[2021-08-11 02:00] VITALS: BP 122/54
[2021-08-11 06:00] VITALS: BP 140/57
[2021-08-11 07:06] LABS: BASOPHILS # (AUTO) 0.1 X10'3 (0-0.2); BASOPHILS % (AUTO) 1.8 % (0-1); EOSINOPHILS % (AUTO) 0 % (0-6); HEMATOCRIT 32.8 % (35.0-45.0); HEMOGLOBIN 10.8 g/dl (12.0-16.0); LYMPHOCYTES % (AUTO) 27.8 % (21-51); MEAN CORPUSCULAR HEMOGLOBIN 30.9 PG (27.0-31.0); MEAN CORPUSCULAR VOLUME 93.7 FL (78-98); MEAN PLATELET VOLUME 9.5 FL (7.4-10.4); MONOCYTES # (AUTO) 0.6 X10'3 (0-0.9); MONOCYTES % (AUTO) 16.5 % (2-12); NEUTROPHILS # (AUTO) 1.9 X10'3 (1.8-7.7); NEUTROPHILS % (AUTO) 53.9 % (42-75); PLATELET COUNT 172 X10'3 (140-440); RED CELL DISTRIBUTION WIDTH 15.3 % (11.5-14.5); WHITE BLOOD COUNT 3.5 X10'3 (4.5-11.0)
[2021-08-11 07:23] LABS: ALANINE AMINOTRANSFERASE 12 U/L (12-78); ALBUMIN 2.9 G/DL (3.4-5.0); ALBUMIN/GLOBULIN RATIO 0.9 (1.1-1.5); ALKALINE PHOSPHATASE 110 IU/L (46-116); ANION GAP 8 (8-16); ASPARTATE AMINO TRANSFERASE 27 U/L (10-37); BILIRUBIN,TOTAL 0.5 MG/DL (0.1-1.0); BLOOD UREA NITROGEN 13 MG/DL (7-18); BUN/CREATININE RATIO 2.9 (6.6-38.0); CALCIUM 8.4 MG/DL (8.5-10.1); CHLORIDE 102 MMOL/L (99-107); CREATININE 4.52 MG/DL (0.40-0.90); GLUCOSE 79 MG/DL (70-104); POTASSIUM 4.5 MMOL/L (3.5-5.1); SODIUM 138 MMOL/L (135-145); TOTAL CARBON DIOXIDE 28.5 MMOL/L (24-32); TOTAL PROTEIN 6.3 G/DL (6.4-8.2); eGFR 9 ML/MIN
[2021-08-11] MEDS: calcium carbonate 500mg tablet PO SCH (08:37)
[2021-08-11] MEDS: atorvastatin 20mg tablet PO SCH (08:37)
[2021-08-11] MEDS: aspirin 81mg, enteric-coated 1 TAB TABLET.DR PO SCH (08:38)
[2021-08-11] MEDS: hydrALAZINE 25 MG tablet PO SCH (08:38)
[2021-08-11] MEDS: losartan 50mg tablet PO SCH (08:38)
[2021-08-11] MEDS: carVEDilol 12.5mg tablet PO SCH (08:39)
[2021-08-11] MEDS: pantoprazole 40mg Tablet.DR PO SCH (08:39)
[2021-08-11] MEDS: ascorbic acid 500mg tablet PO SCH (08:39)
[2021-08-11] MEDS: clopidogrel 75mg tablet PO SCH (08:39)
[2021-08-11] MEDS ORDERED: HYDR-4069 PO (10:32)
[2021-08-11 11:00] VITALS: BP 127/54
--- NOTE | 2021-08-11 11:07 | NUR ---
Patient was instructed that we will need to have a family or friend to flower picker the prescription especially the Plavix as we are supposed to verify that she has the Plavix prior to discharging her. She verbalized understanding.
--- NOTE | 2021-08-11 12:22 | NUR ---
Discharge instructions given to patient. Patient's friend came to the lobby to bring the filled prescription for Plavix, received a full bottle of Plavix and handed it to the patient. I told patient that her friend has the rest of the new prescriptions. Patient verbalized understanding of all instructions given to her. Peripheral IV catheter removed, tip intact. Instructed patient to ensure she has all her belongings with her before leaving the hospital. Bleeding risk was discussed with patient. Patient advised to schedule follow up with her PCP, twisting department end finder, and car rider once discharged.
== END 2021-08-11 12:23 | disposition home or self-care (01) | DRG 270 ==
LOC: ER 20:36 → ED HOLD 08-07 01:36 → PCU 3S 08-07 04:03 → CICU 2S 08-07 17:15 → PCU 3S 08-09 17:25
PROVIDERS: ADMIT Internal Medicine; ATTEND Internal Medicine
PROC: 4A023N7 Measurement of Cardiac Sampling and Pressure, Left Heart, Percutaneous Approach (ICD-10-PCS; principal; 2021-08-07)
PROC: 5A02210 Assistance with Cardiac Output using Balloon Pump, Continuous (ICD-10-PCS; 2021-08-07)
PROC: 027034Z Dilation of Coronary Artery, One Artery with Drug-eluting Intraluminal Device, Percutaneous Approach (ICD-10-PCS; 2021-08-07)
PROC: 02703ZZ Dilation of Coronary Artery, One Artery, Percutaneous Approach (ICD-10-PCS; 2021-08-07)
PROC: B2111ZZ Fluoroscopy of Multiple Coronary Arteries using Low Osmolar Contrast (ICD-10-PCS; 2021-08-07)
PROC: B41F1ZZ Fluoroscopy of Right Lower Extremity Arteries using Low Osmolar Contrast (ICD-10-PCS; 2021-08-07)
PROC: 5A1D70Z Performance of Urinary Filtration, Intermittent, Less than 6 Hours Per Day (ICD-10-PCS; 2021-08-08)
PROC: 5A1D70Z Performance of Urinary Filtration, Intermittent, Less than 6 Hours Per Day (ICD-10-PCS; 2021-08-10)
DX: I25.110 Atherosclerotic heart disease of native coronary artery with unstable angina pectoris (principal); N18.6 End stage renal disease; I12.0 Hypertensive chronic kidney disease with stage 5 chronic kidney disease or end stage renal disease; D64.9 Anemia, unspecified; Z20.822 Contact with and (suspected) exposure to COVID-19; M54.9 Dorsalgia, unspecified; R26.81 Unsteadiness on feet; I95.9 Hypotension, unspecified; Z99.2 Dependence on renal dialysis; Z79.02 Long term (current) use of antithrombotics/antiplatelets; Z79.82 Long term (current) use of aspirin; Z90.710 Acquired absence of both cervix and uterus; Z98.42 Cataract extraction status, left eye; Z98.41 Cataract extraction status, right eye; Z88.8 Allergy status to other drugs, medicaments and biological substances; Z88.2 Allergy status to sulfonamides; Z88.5 Allergy status to narcotic agent; Z91.011 Allergy to milk products; Z79.899 Other long term (current) drug therapy
CPT/HCPCS: 33967; 92920; 93306; 93458; 99285; C9600; 36415; 71045; 80053; 83735; 83880; 84100; 84484; 85007; 85025; 87081; 87340; 87635; 93005; 97161; 97530; 99152; 99153; A4333; A4421; A4615; A6213; A6258; A6402; A6449; C1725; C1751; C1760; C1769; C1874; C1894; G0257; G0378; J0360; J1644; J2250; J2270; J2405; J3010; J3490; J7030; Q4081; Q9967

== ENCOUNTER 2021-08-24 14:26 | Emergency (ER) | payer MEDICARE, OTHER ==
[~2021-08-24] VITALS: Ht 157.5 cm; Wt 91.0 kg
[~2021-08-24 14:26] MED LIST changes: -ASPI-1071 PO; +ASPI-500 PO; +CARV-50 PO; +CLOP75TA34 PO; -DOCU-148 PO; -EPOE200015 SQ; -ERGO500054 PO; -LOP25T PO; -OMEP20CA16 PO; -ONDA4TAB6 PO; -OXYC-150 PO; +PANT40TA54 PO; -SODI650T29 PO
[2021-08-24 15:30] VITALS: BP 132/58
== END 2021-08-24 16:18 | disposition home or self-care (01) ==
LOC: ER 14:27
DX: I80.9 Phlebitis and thrombophlebitis of unspecified site (principal); I12.0 Hypertensive chronic kidney disease with stage 5 chronic kidney disease or end stage renal disease; N18.6 End stage renal disease; Z99.2 Dependence on renal dialysis; Z90.710 Acquired absence of both cervix and uterus; Z98.890 Other specified postprocedural states; Z88.1 Allergy status to other antibiotic agents; Z88.2 Allergy status to sulfonamides; Z88.5 Allergy status to narcotic agent; Z91.011 Allergy to milk products; Z79.82 Long term (current) use of aspirin; Z79.899 Other long term (current) drug therapy
CPT/HCPCS: 99284

== ENCOUNTER 2021-09-06 15:59 | Inpatient (IN) | payer MEDICARE, OTHER ==
[~2021-09-06] VITALS: Ht 157.5 cm; Wt 84.4 kg
[2021-09-06] MEDS ORDERED: clindamycin 300mg/D5W 50mL 50 ML IV STA (19:45)
[2021-09-06] MEDS ORDERED: vancomycin/NS 1 GM ADD-VANTAGE 250 ML IV ONE (19:45)
--- NOTE | 2021-09-06 20:02 | NUR ---
LAB AT BEDSIDE.
--- NOTE | 2021-09-06 20:22 | NUR ---
PT UP TO BATHROOM
[2021-09-06 20:23] LABS: BASOPHILS % (AUTO) 0.2 % (0-1); EOSINOPHILS % (AUTO) 0 % (0-6); HEMOGLOBIN 11.6 g/dl (12.0-16.0); LYMPHOCYTES # (AUTO) 1.3 X10'3 (1.1-4.8); LYMPHOCYTES % (AUTO) 13.3 % (21-51); MEAN CORPUSCULAR HEMOGLOBIN 28.8 PG (27.0-31.0); MEAN CORPUSCULAR HGB CONC 32.4 g/dL (33.0-36.5); MEAN CORPUSCULAR VOLUME 88.9 FL (78-98); MEAN PLATELET VOLUME 9.4 FL (7.4-10.4); MONOCYTES # (AUTO) 1.3 X10'3 (0-0.9); MONOCYTES % (AUTO) 13.1 % (2-12); NEUTROPHILS # (AUTO) 7.4 X10'3 (1.8-7.7); NEUTROPHILS % (AUTO) 73.4 % (42-75); PLATELET COUNT 230 X10'3 (140-440); RED BLOOD COUNT 4.05 X10'6 (4.20-5.60); RED CELL DISTRIBUTION WIDTH 15.3 % (11.5-14.5); WHITE BLOOD COUNT 10.1 X10'3 (4.5-11.0)
[2021-09-06 20:46] LABS: ALANINE AMINOTRANSFERASE 8 U/L (12-78); ALBUMIN 3.5 G/DL (3.4-5.0); ALBUMIN/GLOBULIN RATIO 0.9 (1.1-1.5); ALKALINE PHOSPHATASE 112 IU/L (46-116); ANION GAP 10 (8-16); ASPARTATE AMINO TRANSFERASE 11 U/L (10-37); BILIRUBIN,TOTAL 0.6 MG/DL (0.1-1.0); BLOOD UREA NITROGEN 21 MG/DL (7-18); BUN/CREATININE RATIO 3.1 (6.6-38.0); CALCIUM 9.1 MG/DL (8.5-10.1); CHLORIDE 96 MMOL/L (99-107); CREATININE 6.81 MG/DL (0.40-0.90); GLUCOSE 108 MG/DL (70-104); MAGNESIUM 1.7 MG/DL (1.5-2.4); SODIUM 134 MMOL/L (135-145); TOTAL CARBON DIOXIDE 27.6 MMOL/L (24-32); TOTAL PROTEIN 7.5 G/DL (6.4-8.2); eGFR 6 ML/MIN
[2021-09-07] MEDS ORDERED: ondansetron/PF 4mg/2ml inj IV PRN (00:10)
[2021-09-07] MEDS ORDERED: diphenhydrAMINE 50 mg/ml inj IV PRN (00:10)
[2021-09-07] MEDS ORDERED: magnesium hydroxide 30ml (MOM) UD suspension PO PRN (00:10)
[2021-09-07] MEDS ORDERED: acetaminophen 325mg tablet PO PRN (00:10)
[2021-09-07] MEDS ORDERED: diphenhydrAMINE 25mg capsule PO PRN (00:10)
[2021-09-07] MEDS ORDERED: mag hydrox/Alum hydrox/simeth 30ml oral suspension PO PRN (00:10)
[2021-09-07] MEDS ORDERED: morphine 2 MG/ML inj. syringe IV PRN ×2 (00:10)
[2021-09-07] MEDS ORDERED: bisacodyl 10mg suppository rectal RC PRN (00:10)
[2021-09-07] MEDS ORDERED: OMEP20CA16 PO (00:50)
[2021-09-07] MEDS: normal saline 1000ml 1,000 ML IV SCH ×3 (00:50→16:30)
[2021-09-07] MEDS ORDERED: METO25TA6 PO (00:50)
[2021-09-07] MEDS ORDERED: PANT40TA54 PO (00:56)
[2021-09-07] MEDS ORDERED: HYDR-4069 PO (00:56)
[2021-09-07] MEDS ORDERED: CARV-50 PO (00:56)
[2021-09-07] MEDS ORDERED: CLOP75TA15 PO (00:56)
--- NOTE | 2021-09-07 01:01 | NUR ---
CALLED PHARMACY TO RETIME CLINDAMYCIN PER Q8H ORDER
[2021-09-07] MEDS ORDERED: clindamycin 300mg/D5W 50mL 50 ML IV SCH ×2 (01:17)
[2021-09-07] MEDS: docusate sod 100mg capsule PO SCH ×2 (08:00→20:00)
[2021-09-07 08:10] LABS: APTT 25 SECONDS (22-32)
[2021-09-07 09:08] LABS: MAGNESIUM 1.6 MG/DL (1.5-2.4); PHOSPHORUS 3.4 MG/DL (2.3-4.5)
--- NOTE | 2021-09-07 10:48 | NUR ---
Wound care note: Wound care was asked to see patient in the ER regarding her right thigh. She has been diagnosed with phlebitis in the past. She has a large area of redness with induration of approx 10cm, and a darkened area with white to royal colored skin cover approx 7cm in diameter. All this area is intact. Recommend a surgical consult for debridement. Wound care is unable to debride or do I & D. Wound is intact and protected at this time. No wound care is needed at this time other than observe for any opening or drainage and cover with gauze dressing if this should occur and reconsult wound care. Discussed with bedside RN Danuta.
[2021-09-07] MEDS: clindamycin phosphate inj 300 MG in normal saline 50ml IV soln 48 ML IV SCH ×2 (12:38→20:33)
--- NOTE | 2021-09-07 15:23 | NUR ---
Report attempted, to recall in 10 min. to give report to
--- NOTE | 2021-09-07 15:54 | NUR ---
Report given to RN Jennifer, pt to go to room 3393a
[2021-09-07 15:55] VITALS: BP 160/73
[2021-09-07] MEDS: hydrALAZINE 25 MG tablet PO SCH (16:26)
[2021-09-07] MEDS: HYDROcodone/acetaminophen 5mg/325mg tablet PO PRN (16:27)
[2021-09-07 18:30] VITALS: BP 160/73
--- NOTE | 2021-09-07 18:32 | NUR ---
Patient in room ORTHO 4012B. I have received report from Jennifer AMAYA and had the opportunity to ask questions and assume patient care.
[2021-09-07] MEDS: calcium carbonate 500mg chew tablet PO SCH (20:32)
[2021-09-07] MEDS: carVEDilol 12.5mg tablet PO SCH (20:33)
[2021-09-07] MEDS: furosemide 40mg tablet PO SCH (20:33)
[2021-09-07 22:00] VITALS: BP 130/67
[2021-09-08] VITALS: BP 121/61
[2021-09-08] MEDS: acetaminophen 325mg tablet PO PRN (00:33)
[2021-09-08] MEDS: hydrALAZINE 25 MG tablet PO SCH ×3 (00:36→16:00)
--- NOTE | 2021-09-08 01:51 | NUR ---
Crit result blood cultures, gram positive cocci in clusters. Dr. Chun made aware. Pt on IV Clindamycin. No new orders given at this time.
[2021-09-08] MEDS: HYDROcodone/acetaminophen 5mg/325mg tablet PO PRN (02:28)
[2021-09-08] MEDS: clindamycin phosphate inj 300 MG in normal saline 50ml IV soln 48 ML IV SCH ×3 (04:25→21:00)
[2021-09-08] MEDS ORDERED: heparin 1,000 units/ml 10ml inj IV ONE (05:40)
[2021-09-08] MEDS ORDERED: albumin (human) 25% 100ml IV 100 ML IV PRN (05:40)
[2021-09-08] MEDS ORDERED: heparin 1,000unit/ml 10ml vial 10 ML IV ONE (05:40)
[2021-09-08 06:06] VITALS: BP 117/54
--- NOTE | 2021-09-08 06:22 | NUR ---
Change of shift. Pt is resting comfortably in bed. Pt on RA. Dressing changed to R thigh. No s/s of distress. BLL, call light within reach, frequently used items in reach, frequent rounding, certified low vision therapist socks on. Will continue to monitor.
[2021-09-08 06:33] LABS: BASOPHILS # (AUTO) 0.1 X10'3 (0-0.2); BASOPHILS % (AUTO) 1.3 % (0-1); EOSINOPHILS % (AUTO) 0.1 % (0-6); LYMPHOCYTES # (AUTO) 1.1 X10'3 (1.1-4.8); LYMPHOCYTES % (AUTO) 15.7 % (21-51); MEAN CORPUSCULAR HEMOGLOBIN 29.9 PG (27.0-31.0); MEAN CORPUSCULAR HGB CONC 33.3 g/dL (33.0-36.5); MEAN CORPUSCULAR VOLUME 89.7 FL (78-98); MEAN PLATELET VOLUME 9.9 FL (7.4-10.4); MONOCYTES # (AUTO) 0.8 X10'3 (0-0.9); MONOCYTES % (AUTO) 11.7 % (2-12); NEUTROPHILS % (AUTO) 71.2 % (42-75); PLATELET COUNT 180 X10'3 (140-440); RED BLOOD COUNT 3.68 X10'6 (4.20-5.60); RED CELL DISTRIBUTION WIDTH 14.8 % (11.5-14.5)
[2021-09-08 07:02] LABS: ALANINE AMINOTRANSFERASE 9 U/L (12-78); ALBUMIN 2.7 G/DL (3.4-5.0); ALBUMIN/GLOBULIN RATIO 0.7 (1.1-1.5); ALKALINE PHOSPHATASE 96 IU/L (46-116); ANION GAP 14 (8-16); ASPARTATE AMINO TRANSFERASE 6 U/L (10-37); BILIRUBIN,TOTAL 0.6 MG/DL (0.1-1.0); BLOOD UREA NITROGEN 37 MG/DL (7-18); CALCIUM 8.3 MG/DL (8.5-10.1); CHLORIDE 98 MMOL/L (99-107); GLUCOSE 92 MG/DL (70-104); POTASSIUM 3.9 MMOL/L (3.5-5.1); SODIUM 137 MMOL/L (135-145); TOTAL CARBON DIOXIDE 25.2 MMOL/L (24-32); TOTAL PROTEIN 6.4 G/DL (6.4-8.2); eGFR 4 ML/MIN
[2021-09-08] MEDS ORDERED: non-formulary drug (Ubidecarenone (Co Q-10) 100 MG) PO SCH (08:00)
[2021-09-08] MEDS: docusate sod 100mg capsule PO SCH ×2 (08:00→20:00)
[2021-09-08 10:00] VITALS: BP 111/50
[2021-09-08] MEDS: pantoprazole 40mg Tablet.DR PO SCH (10:10)
[2021-09-08] MEDS: carVEDilol 12.5mg tablet PO SCH ×2 (10:10→21:00)
[2021-09-08] MEDS: ascorbic acid 500mg tablet PO SCH (10:11)
[2021-09-08] MEDS: furosemide 40mg tablet PO SCH ×3 (10:11→21:00)
[2021-09-08] MEDS: aspirin 81mg, enteric-coated 1 TAB TABLET.DR PO SCH (10:12)
[2021-09-08] MEDS: losartan 50mg tablet PO SCH (10:12)
[2021-09-08] MEDS: calcium carbonate 500mg chew tablet PO SCH ×3 (10:12→21:02)
[2021-09-08] MEDS: atorvastatin 20mg tablet PO SCH (10:13)
[2021-09-08] MEDS: clopidogrel 75mg tablet PO SCH (10:13)
--- NOTE | 2021-09-08 14:18 | NUR ---
Problems reprioritized. Patient report given, questions answered & plan of care reviewed with José Miguel AMAYA.
--- NOTE | 2021-09-08 15:10 | NUR ---
Assumed care of pt. Pt awake and alert. Pt denied any discomfort. Gauze dressing to R inner upper thigh area CDI.
[2021-09-08 18:30] VITALS: BP 99/63
--- NOTE | 2021-09-08 19:30 | NUR ---
states she may urinate "maybe x2/day, small amounts" Addendum: 09/09/21 at 0231 by Noelle Ramirez RN Amended: Links added.
--- NOTE | 2021-09-08 19:30 | NUR ---
left hand numbness; fingers purple; resolving after dialysis stopped Addendum: 09/09/21 at 0231 by Noelle Ramirez RN Amended: Links added.
[2021-09-08 21:00] VITALS: BP 96/50
[2021-09-09 00:10] VITALS: BP 114/55
[2021-09-09] MEDS: normal saline 1000ml 1,000 ML IV SCH ×2 (00:10→22:05)
[2021-09-09] MEDS: hydrALAZINE 25 MG tablet PO SCH ×3 (00:21→17:20)
[2021-09-09] MEDS: acetaminophen 325mg tablet PO PRN (00:22)
[2021-09-09] MEDS: clindamycin phosphate inj 300 MG in normal saline 50ml IV soln 48 ML IV SCH ×3 (04:46→22:00)
[2021-09-09 06:00] VITALS: BP 101/40
--- NOTE | 2021-09-09 07:00 | NUR ---
Patient in room ORTHO 4013. I have received report from Gayle RN and had the opportunity to ask questions and assume patient care.
[2021-09-09 07:11] LABS: HEMATOCRIT 35.5 % (35.0-45.0)
[2021-09-09 07:14] LABS: HEMOGLOBIN 11.9 g/dl (12.0-16.0); MEAN CORPUSCULAR HEMOGLOBIN 30.8 PG (27.0-31.0); MEAN CORPUSCULAR HGB CONC 33.6 g/dL (33.0-36.5); MEAN CORPUSCULAR VOLUME 91.7 FL (78-98); MEAN PLATELET VOLUME 10.6 FL (7.4-10.4); PLATELET COUNT 255 X10'3 (140-440); RED BLOOD COUNT 3.87 X10'6 (4.20-5.60); WHITE BLOOD COUNT 4.1 X10'3 (4.5-11.0)
[2021-09-09 07:43] LABS: ALANINE AMINOTRANSFERASE < 6 U/L (12-78); ALBUMIN/GLOBULIN RATIO 0.8 (1.1-1.5); ALKALINE PHOSPHATASE 127 IU/L (46-116); ANION GAP 13 (8-16); ASPARTATE AMINO TRANSFERASE 13 U/L (10-37); BILIRUBIN,TOTAL 0.4 MG/DL (0.1-1.0); BLOOD UREA NITROGEN 35 MG/DL (7-18); BUN/CREATININE RATIO 4.1 (6.6-38.0); CALCIUM 8.4 MG/DL (8.5-10.1); CHLORIDE 99 MMOL/L (99-107); CREATININE 8.53 MG/DL (0.40-0.90); GLUCOSE 73 MG/DL (70-104); POTASSIUM 3.7 MMOL/L (3.5-5.1); SODIUM 138 MMOL/L (135-145); TOTAL CARBON DIOXIDE 26.3 MMOL/L (24-32); TOTAL PROTEIN 6.8 G/DL (6.4-8.2); eGFR 5 ML/MIN
[2021-09-09 08:40] LABS: TOTAL CELLS COUNTED 100
[2021-09-09 08:41] LABS: LARGE PLATELETS FEW; PLATELET ESTIMATE NORMAL; POLYCHROMASIA FEW
[2021-09-09 10:00] VITALS: BP 99/45
[2021-09-09] MEDS: ascorbic acid 500mg tablet PO SCH (10:11)
[2021-09-09] MEDS: docusate sod 100mg capsule PO SCH ×2 (10:11→20:00)
[2021-09-09] MEDS: calcium carbonate 500mg chew tablet PO SCH ×3 (10:11→22:02)
[2021-09-09] MEDS: clopidogrel 75mg tablet PO SCH (10:11)
[2021-09-09] MEDS: pantoprazole 40mg Tablet.DR PO SCH (10:11)
[2021-09-09] MEDS: aspirin 81mg, enteric-coated 1 TAB TABLET.DR PO SCH (10:11)
[2021-09-09] MEDS: atorvastatin 20mg tablet PO SCH (10:11)
[2021-09-09] MEDS: carVEDilol 12.5mg tablet PO SCH ×2 (10:17→22:05)
[2021-09-09] MEDS: losartan 50mg tablet PO SCH (10:17)
[2021-09-09] MEDS: furosemide 40mg tablet PO SCH ×3 (10:18→22:06)
[2021-09-09 18:30] VITALS: BP 91/46
--- NOTE | 2021-09-09 18:30 | NUR ---
Report received from Jo AMAYA.
--- NOTE | 2021-09-09 18:57 | NUR ---
Problems reprioritized. Patient report given, questions answered & plan of care reviewed with Chetna.
--- NOTE | 2021-09-09 21:00 | NUR ---
L fistula not tender to pts L arm , can feel a thrill and hear a bruit.
[2021-09-09 22:00] VITALS: BP 117/52
[2021-09-09] MEDS ORDERED: diphenoxylate/atropine tablet (Lomotil) PO ONE (23:15)
[2021-09-10] MEDS: acetaminophen 325mg tablet PO PRN (02:20)
[2021-09-10] MEDS: clindamycin phosphate inj 300 MG in normal saline 50ml IV soln 48 ML IV SCH ×3 (03:53→20:17)
[2021-09-10 05:46] LABS: BASOPHILS # (AUTO) 0.1 X10'3 (0-0.2); BASOPHILS % (AUTO) 1.4 % (0-1); EOSINOPHILS % (AUTO) 0 % (0-6); HEMATOCRIT 31.8 % (35.0-45.0); HEMOGLOBIN 10.4 g/dl (12.0-16.0); LYMPHOCYTES % (AUTO) 24.1 % (21-51); MEAN CORPUSCULAR HEMOGLOBIN 29.8 PG (27.0-31.0); MEAN CORPUSCULAR HGB CONC 32.8 g/dL (33.0-36.5); MEAN CORPUSCULAR VOLUME 90.8 FL (78-98); MEAN PLATELET VOLUME 9.9 FL (7.4-10.4); MONOCYTES # (AUTO) 0.5 X10'3 (0-0.9); NEUTROPHILS # (AUTO) 2.5 X10'3 (1.8-7.7); NEUTROPHILS % (AUTO) 61.5 % (42-75); PLATELET COUNT 242 X10'3 (140-440); RED CELL DISTRIBUTION WIDTH 14.8 % (11.5-14.5); WHITE BLOOD COUNT 4.1 X10'3 (4.5-11.0)
[2021-09-10 06:00] VITALS: BP 99/45
[2021-09-10 06:08] LABS: ALANINE AMINOTRANSFERASE 12 U/L (12-78); ALBUMIN 2.7 G/DL (3.4-5.0); ALBUMIN/GLOBULIN RATIO 0.8 (1.1-1.5); ALKALINE PHOSPHATASE 129 IU/L (46-116); ANION GAP 13 (8-16); ASPARTATE AMINO TRANSFERASE 9 U/L (10-37); BILIRUBIN,TOTAL 0.4 MG/DL (0.1-1.0); BLOOD UREA NITROGEN 48 MG/DL (7-18); BUN/CREATININE RATIO 4.9 (6.6-38.0); CALCIUM 7.9 MG/DL (8.5-10.1); CHLORIDE 100 MMOL/L (99-107); CREATININE 9.82 MG/DL (0.40-0.90); GLUCOSE 94 MG/DL (70-104); POTASSIUM 4.5 MMOL/L (3.5-5.1); SODIUM 136 MMOL/L (135-145); TOTAL CARBON DIOXIDE 22.7 MMOL/L (24-32); TOTAL PROTEIN 6.2 G/DL (6.4-8.2); eGFR 4 ML/MIN
--- NOTE | 2021-09-10 06:37 | NUR ---
Report to Ananya CRAVEN.
--- NOTE | 2021-09-10 06:41 | NUR ---
Patient in room ORTHO 4013. I have received report from Chetna AMAYA and had the opportunity to ask questions and assume patient care.
[2021-09-10 07:00] LABS: LARGE PLATELETS FEW; PLATELET ESTIMATE NORMAL; TOTAL CELLS COUNTED 100
[2021-09-10] MEDS: docusate sod 100mg capsule PO SCH ×2 (08:00→20:00)
[2021-09-10] MEDS: hydrALAZINE 25 MG tablet PO SCH ×3 (08:00→16:00)
[2021-09-10] MEDS: losartan 50mg tablet PO SCH (08:00)
[2021-09-10] MEDS: aspirin 81mg, enteric-coated 1 TAB TABLET.DR PO SCH (08:15)
[2021-09-10] MEDS: pantoprazole 40mg Tablet.DR PO SCH (08:15)
[2021-09-10] MEDS: carVEDilol 12.5mg tablet PO SCH ×2 (08:15→20:00)
[2021-09-10] MEDS: calcium carbonate 500mg chew tablet PO SCH ×3 (08:15→20:17)
[2021-09-10] MEDS: furosemide 40mg tablet PO SCH ×3 (08:15→20:21)
[2021-09-10] MEDS: ascorbic acid 500mg tablet PO SCH (08:15)
[2021-09-10] MEDS: clopidogrel 75mg tablet PO SCH (08:15)
[2021-09-10] MEDS: atorvastatin 20mg tablet PO SCH (08:15)
[2021-09-10 10:00] VITALS: BP 101/33
[2021-09-10 18:00] VITALS: BP 106/48
--- NOTE | 2021-09-10 18:23 | NUR ---
Problems reprioritized. Patient report given, questions answered & plan of care reviewed with Kristi AMAYA.
--- NOTE | 2021-09-10 18:40 | NUR ---
TEMPORARY ADMINISTRATIVE ASSISTANT documentation: I have reviewed and agree with all interventions, assessments performed and documented by MITCHELL.
[2021-09-10 22:00] VITALS: BP 97/56
[2021-09-11] VITALS (7 sets, daily range): BP systolic 100–149; BP diastolic 40–73
[2021-09-11] MEDS: hydrALAZINE 25 MG tablet PO SCH ×3 (00:08→16:00)
[2021-09-11] MEDS: normal saline 1000ml 1,000 ML IV SCH (00:10)
[2021-09-11] MEDS: clindamycin phosphate inj 300 MG in normal saline 50ml IV soln 48 ML IV SCH ×3 (04:24→20:38)
--- NOTE | 2021-09-11 06:20 | NUR ---
Problems reprioritized. Patient report given, questions answered & plan of care reviewed with Soraya AMAYA.
[2021-09-11 07:15] LABS: BASOPHILS % (AUTO) 1.3 % (0-1); EOSINOPHILS % (AUTO) 0 % (0-6); HEMATOCRIT 33.3 % (35.0-45.0); LYMPHOCYTES % (AUTO) 27.7 % (21-51); MEAN CORPUSCULAR HEMOGLOBIN 30.4 PG (27.0-31.0); MEAN CORPUSCULAR HGB CONC 33.1 g/dL (33.0-36.5); MEAN CORPUSCULAR VOLUME 91.9 FL (78-98); MEAN PLATELET VOLUME 9.2 FL (7.4-10.4); MONOCYTES # (AUTO) 0.5 X10'3 (0-0.9); MONOCYTES % (AUTO) 12.7 % (2-12); NEUTROPHILS # (AUTO) 2.1 X10'3 (1.8-7.7); NEUTROPHILS % (AUTO) 58.3 % (42-75); PLATELET COUNT 255 X10'3 (140-440); RED BLOOD COUNT 3.62 X10'6 (4.20-5.60); RED CELL DISTRIBUTION WIDTH 14.8 % (11.5-14.5); WHITE BLOOD COUNT 3.6 X10'3 (4.5-11.0)
[2021-09-11 07:24] LABS: ALANINE AMINOTRANSFERASE 13 U/L (12-78); ALBUMIN/GLOBULIN RATIO 0.8 (1.1-1.5); ALKALINE PHOSPHATASE 134 IU/L (46-116); ANION GAP 15 (8-16); ASPARTATE AMINO TRANSFERASE 16 U/L (10-37); BILIRUBIN,TOTAL 0.4 MG/DL (0.1-1.0); BLOOD UREA NITROGEN 54 MG/DL (7-18); BUN/CREATININE RATIO 4.9 (6.6-38.0); CALCIUM 8.1 MG/DL (8.5-10.1); CHLORIDE 98 MMOL/L (99-107); CREATININE 11.08 MG/DL (0.40-0.90); GLUCOSE 90 MG/DL (70-104); POTASSIUM 4.8 MMOL/L (3.5-5.1); SODIUM 133 MMOL/L (135-145); TOTAL CARBON DIOXIDE 19.7 MMOL/L (24-32); TOTAL PROTEIN 6.7 G/DL (6.4-8.2); eGFR 3 ML/MIN
[2021-09-11] MEDS: losartan 50mg tablet PO SCH (08:00)
[2021-09-11] MEDS: docusate sod 100mg capsule PO SCH ×2 (08:00→20:00)
[2021-09-11] MEDS: ascorbic acid 500mg tablet PO SCH (08:00)
[2021-09-11] MEDS: aspirin 81mg, enteric-coated 1 TAB TABLET.DR PO SCH (08:00)
[2021-09-11] MEDS: furosemide 40mg tablet PO SCH ×3 (08:00→20:38)
[2021-09-11] MEDS: carVEDilol 12.5mg tablet PO SCH ×2 (08:00→20:00)
[2021-09-11] MEDS: clopidogrel 75mg tablet PO SCH (08:00)
--- NOTE | 2021-09-11 08:49 | NUR ---
Called IR due to concerns of the AV fistula gram not being done. Patient is due to go to surgery today at 1230pm, but will likely be cancelled due to no hemodyalysis, or fistula gram. Addendum: 09/11/21 at 0855 by Soraya Benedict RN Asked why the fistula gram has been canceled, they stated they were busy yesterday. Today they have seven cases, it is Dr. Rowland, I will let the ordering doctor beaware of the fistula gram status and the OR.
[2021-09-11] MEDS ORDERED: albumin (human) 25% 100ml IV 100 ML IV PRN (09:00)
[2021-09-11] MEDS ORDERED: EPOETIN ALFA-EPBX 20,000 UNIT/ML 1 ML MDV IV ONE (09:00)
[2021-09-11] MEDS: atorvastatin 20mg tablet PO SCH (11:09)
[2021-09-11] MEDS: ondansetron 4mg rapidly disintigrating tab PO PRN (11:09)
[2021-09-11] MEDS: calcium carbonate 500mg chew tablet PO SCH ×3 (11:09→20:38)
[2021-09-11] MEDS: pantoprazole 40mg Tablet.DR PO SCH (11:10)
--- NOTE | 2021-09-11 15:12 | NUR ---
she has been being dialyzed since 1100, visitors at bedside Addendum: 09/11/21 at 1513 by Soraya Benedict RN Amended: Links added.
--- NOTE | 2021-09-11 15:14 | NUR ---
AM medications held due to dialysis requesting not to give due to BP.
--- NOTE | 2021-09-11 18:30 | NUR ---
Patient in room ORTHO 4013. I have received report from Soraya AMAYA and had the opportunity to ask questions and assume patient care.
--- NOTE | 2021-09-11 18:30 | NUR ---
Problems reprioritized. Patient report given, questions answered & plan of care reviewed with Kristi AMAYA.
[2021-09-12] VITALS (24 sets, daily range): BP systolic 100–154; BP diastolic 40–72
[2021-09-12] MEDS: normal saline 1000ml 1,000 ML IV SCH (03:55)
[2021-09-12] MEDS: clindamycin phosphate inj 300 MG in normal saline 50ml IV soln 48 ML IV SCH ×3 (03:57→20:24)
[2021-09-12 06:22] LABS: BASOPHILS # (AUTO) 0.1 X10'3 (0-0.2); BASOPHILS % (AUTO) 1.5 % (0-1); EOSINOPHILS % (AUTO) 0 % (0-6); HEMOGLOBIN 10.9 g/dl (12.0-16.0); LYMPHOCYTES # (AUTO) 1.1 X10'3 (1.1-4.8); LYMPHOCYTES % (AUTO) 24.9 % (21-51); MEAN CORPUSCULAR HEMOGLOBIN 29.3 PG (27.0-31.0); MEAN CORPUSCULAR HGB CONC 33.1 g/dL (33.0-36.5); MEAN CORPUSCULAR VOLUME 88.5 FL (78-98); MEAN PLATELET VOLUME 9.1 FL (7.4-10.4); MONOCYTES # (AUTO) 0.7 X10'3 (0-0.9); MONOCYTES % (AUTO) 15.4 % (2-12); NEUTROPHILS # (AUTO) 2.5 X10'3 (1.8-7.7); NEUTROPHILS % (AUTO) 58.2 % (42-75); PLATELET COUNT 270 X10'3 (140-440); RED BLOOD COUNT 3.73 X10'6 (4.20-5.60); RED CELL DISTRIBUTION WIDTH 14.8 % (11.5-14.5); WHITE BLOOD COUNT 4.2 X10'3 (4.5-11.0)
--- NOTE | 2021-09-12 06:35 | NUR ---
Problems reprioritized. Patient report given, questions answered & plan of care reviewed with Soraya AMAYA.
[2021-09-12 06:38] LABS: ALANINE AMINOTRANSFERASE 13 U/L (12-78); ALBUMIN 2.9 G/DL (3.4-5.0); ALBUMIN/GLOBULIN RATIO 0.8 (1.1-1.5); ALKALINE PHOSPHATASE 103 IU/L (46-116); ANION GAP 10 (8-16); ASPARTATE AMINO TRANSFERASE 14 U/L (10-37); BILIRUBIN,TOTAL 0.5 MG/DL (0.1-1.0); BLOOD UREA NITROGEN 22 MG/DL (7-18); BUN/CREATININE RATIO 3.8 (6.6-38.0); CALCIUM 8.2 MG/DL (8.5-10.1); CHLORIDE 98 MMOL/L (99-107); CREATININE 5.82 MG/DL (0.40-0.90); GLUCOSE 80 MG/DL (70-104); POTASSIUM 4.2 MMOL/L (3.5-5.1); SODIUM 134 MMOL/L (135-145); TOTAL CARBON DIOXIDE 26.5 MMOL/L (24-32); TOTAL PROTEIN 6.6 G/DL (6.4-8.2); eGFR 7 ML/MIN
--- NOTE | 2021-09-12 07:06 | NUR ---
UNCASHED CHECK FOR 400.00 #[id number] AND BLANK CHECK BOOK FOR [id number] Addendum: 09/12/21 at 12 by Soraya Benedict RN Amended: Links added.
[2021-09-12] MEDS ORDERED: ringers solution, lacted 1,000 ML IV SCH (07:15)
[2021-09-12] MEDS ORDERED: ondansetron/PF 4mg/2ml inj IV PRN (07:15)
[2021-09-12] MEDS ORDERED: HYDROmorphone/PF 0.2 MG/ML SYRINGE IV PRN (07:15)
[2021-09-12] MEDS ORDERED: morphine 2 MG/ML inj. syringe IV PRN (07:15)
--- NOTE | 2021-09-12 07:24 | NUR ---
PATIENT TO OR, WALLET LOCKED UP WITH ADMITTING. BAND PLACED ON PATIENT AND SECURITY SLIP PUT IN CHART.
[2021-09-12] MEDS ORDERED: sevoflurane 250ml liquid IH ONE (07:36)
[2021-09-12] MEDS ORDERED: midazolam 1 mg/ML 2ml injection ONE (07:38)
[2021-09-12] MEDS ORDERED: ketamine 50mg/5ml syringe ONE (07:38)
[2021-09-12] MEDS ORDERED: rocuronium 10mg/ml inj IV ONE (07:56)
[2021-09-12] MEDS ORDERED: propofol inj 20 ML IV ONE (07:56)
[2021-09-12] MEDS ORDERED: ondansetron/PF 4mg/2ml inj ONE (07:56)
[2021-09-12] MEDS ORDERED: dexamethasone sod phosphate 4mg/ml inj. ONE (07:56)
[2021-09-12] MEDS ORDERED: LIDOcaine 2% (20mg/ml) 5ml vial ONE (07:56)
[2021-09-12] MEDS ORDERED: sugammadex 200mg/2ml injection IV ONE (07:57)
[2021-09-12] MEDS: hydrALAZINE 25 MG tablet PO SCH ×3 (08:00→16:00)
[2021-09-12] MEDS: pantoprazole 40mg Tablet.DR PO SCH (08:00)
[2021-09-12] MEDS: aspirin 81mg, enteric-coated 1 TAB TABLET.DR PO SCH (08:00)
[2021-09-12] MEDS: calcium carbonate 500mg chew tablet PO SCH ×3 (08:00→20:25)
[2021-09-12] MEDS: furosemide 40mg tablet PO SCH ×3 (08:00→20:25)
[2021-09-12] MEDS: clopidogrel 75mg tablet PO SCH (08:00)
[2021-09-12] MEDS: docusate sod 100mg capsule PO SCH ×2 (08:00→20:00)
[2021-09-12] MEDS: ascorbic acid 500mg tablet PO SCH (08:00)
[2021-09-12] MEDS: atorvastatin 20mg tablet PO SCH (08:00)
[2021-09-12] MEDS: losartan 50mg tablet PO SCH (08:00)
[2021-09-12] MEDS: carVEDilol 12.5mg tablet PO SCH ×2 (08:00→20:29)
--- NOTE | 2021-09-12 08:29 | NUR ---
Received from OR via , accompanied by Anesthesiologist DR VERDUGO and report given by Anesthesiolgist. PT WAKES EASILY TO VERBAL STIMULI, PT FOLLOWS COMMANDS. PT PLACE DON BEDSIDE MONITOR, VSS, PT IS ON 10L O2 TO MASK AND TOLERATING WELL, O2 SAT IS 100%, WILL TITRATE DOWN PT TOLERATES IT. PT HAS AN 18G PIV TO RT EJ. NS IS AT A TKO PT IS A RENAL PT. DRSG TO RT THIGH IS CDI. PT DENIES PAIN AT THIS TIME. WILL CONTIUNUE TO ASSESS.
[2021-09-12 09:24] LABS: ISTAT CREATININE 6.2 mg/dL (0.6-1.1); ISTAT HGB 11.9 g/dl (12.0-16.0); ISTAT IONIZED CALCIUM 1.11 mmol/L (1.03-1.32); ISTAT K 4.5 mmol/L (3.5-5.1); POC BUN/CREATININE RATIO 3.7 (6.6-38.0)
--- NOTE | 2021-09-12 09:58 | NUR ---
PT IS A/O, WAKES EASILY TO VERBAL STIMULI. VSS, PT RECEIVING 2L O2 TO NC AND TOLERATING WELL. O2 SAT 96%. PT TREATED FOR PAIN WITH 2MG PRN IVP MORPHINE WHICH HAS BEEN EFFECTIVE. PT STATES RELIEF OF PAIN. DRSG TO RT THIGH IN CDI. REPORT HAS BEEN CALLED TO RECEIVING NURSE, JANY AMAYA. ALL QUESTIONS ANSWERED.
[2021-09-12] MEDS ORDERED: fentaNYL/PF 50MCG/1 ML 2ML syringe ONE (10:18)
--- NOTE | 2021-09-12 11:56 | NUR ---
Initial: Pt admit DX sepsis, RLE thigh abscess, and hx ESRD on HD as well as chronic Ileostomy per EMR. Pt s/p OR for R thigh I&D today per EMR. PO ~75% avg renal diet decent intake given age partially meeting estimated needs. RD recommends Nepro WL for further kcals/protein; notified. Ileostomy volume not documented in EMR only 3 BM's 09/10 w/ pt managing Ileostomy herself per EMR. Routine colace ordered though mostly not needed this admit per EMR. Will monitor for further PO trends and nutrition intervention needs this admit. Rec: 1. continue renal diet 2. Nepro WL for further protein/kcals; pending MD verification in EMR 3. bowel care per rx 4. scaled wt this admit; subsequent scaled wts w/ HD Addendum: 09/12/21 at [address] Amended: Links added.
[2021-09-12] MEDS: NUT.TX.IMP.RENAL FXN,LAC-REDUC (Nepro) 237 ML VANILLA PO SCH (12:30)
--- NOTE | 2021-09-12 13:41 | NUR ---
Patient back from OR Addendum: 09/12/21 at 1342 by Soraya Benedict RN Amended: Links added.
--- NOTE | 2021-09-12 18:38 | NUR ---
Problems reprioritized. Patient report given, questions answered & plan of care reviewed with Kristi AMAYA.
--- NOTE | 2021-09-12 18:40 | NUR ---
Patient in room ORTHO 4013. I have received report from Soraya AMAYA and had the opportunity to ask questions and assume patient care.
[2021-09-13] MEDS: temazepam 15mg capsule PO PRN ×3 (00:03→21:58)
[2021-09-13] MEDS: hydrALAZINE 25 MG tablet PO SCH ×3 (00:03→16:00)
[2021-09-13] MEDS: clindamycin phosphate inj 300 MG in normal saline 50ml IV soln 48 ML IV SCH ×3 (04:27→21:56)
[2021-09-13 06:00] VITALS: BP 117/51
--- NOTE | 2021-09-13 06:27 | NUR ---
Problems reprioritized. Patient report given, questions answered & plan of care reviewed with Margie AMAYA.
--- NOTE | 2021-09-13 07:18 | NUR ---
Patient in room ORTHO 4013. I have received report from Kristi AMAYA and had the opportunity to ask questions and assume patient care.
[2021-09-13] MEDS: losartan 50mg tablet PO SCH (08:00)
[2021-09-13] MEDS: furosemide 40mg tablet PO SCH ×3 (08:00→21:53)
[2021-09-13] MEDS: docusate sod 100mg capsule PO SCH ×2 (08:00→20:00)
[2021-09-13] MEDS: carVEDilol 12.5mg tablet PO SCH ×2 (08:00→21:52)
[2021-09-13] MEDS: aspirin 81mg, enteric-coated 1 TAB TABLET.DR PO SCH (08:34)
[2021-09-13] MEDS: calcium carbonate 500mg chew tablet PO SCH ×3 (08:34→21:51)
[2021-09-13] MEDS: ascorbic acid 500mg tablet PO SCH (08:34)
[2021-09-13] MEDS: atorvastatin 20mg tablet PO SCH (08:34)
[2021-09-13] MEDS: clopidogrel 75mg tablet PO SCH (08:34)
[2021-09-13] MEDS: pantoprazole 40mg Tablet.DR PO SCH (08:34)
[2021-09-13 09:17] LABS: ALANINE AMINOTRANSFERASE 17 U/L (12-78); ALBUMIN 3.5 G/DL (3.4-5.0); ALBUMIN/GLOBULIN RATIO 0.9 (1.1-1.5); ALKALINE PHOSPHATASE 114 IU/L (46-116); ANION GAP 13 (8-16); ASPARTATE AMINO TRANSFERASE 12 U/L (10-37); BILIRUBIN,TOTAL 0.4 MG/DL (0.1-1.0); BLOOD UREA NITROGEN 38 MG/DL (7-18); BUN/CREATININE RATIO 5.1 (6.6-38.0); CALCIUM 8.5 MG/DL (8.5-10.1); CHLORIDE 97 MMOL/L (99-107); CREATININE 7.41 MG/DL (0.40-0.90); GLUCOSE 155 MG/DL (70-104); POTASSIUM 4.3 MMOL/L (3.5-5.1); SODIUM 134 MMOL/L (135-145); TOTAL CARBON DIOXIDE 23.6 MMOL/L (24-32); TOTAL PROTEIN 7.5 G/DL (6.4-8.2); eGFR 5 ML/MIN
[2021-09-13 10:00] VITALS: BP 113/33
[2021-09-13 10:24] LABS: BASOPHILS # (AUTO) 0.1 X10'3 (0-0.2); BASOPHILS % (AUTO) 0.6 % (0-1); EOSINOPHILS % (AUTO) 0 % (0-6); HEMATOCRIT 35.4 % (35.0-45.0); LYMPHOCYTES # (AUTO) 0.8 X10'3 (1.1-4.8); LYMPHOCYTES % (AUTO) 10.3 % (21-51); MEAN CORPUSCULAR HEMOGLOBIN 31.8 PG (27.0-31.0); MEAN CORPUSCULAR HGB CONC 33.9 g/dL (33.0-36.5); MEAN PLATELET VOLUME 9.4 FL (7.4-10.4); MONOCYTES # (AUTO) 0.4 X10'3 (0-0.9); MONOCYTES % (AUTO) 5.2 % (2-12); NEUTROPHILS # (AUTO) 6.8 X10'3 (1.8-7.7); NEUTROPHILS % (AUTO) 83.9 % (42-75); PLATELET COUNT 304 X10'3 (140-440); RED BLOOD COUNT 3.77 X10'6 (4.20-5.60); RED CELL DISTRIBUTION WIDTH 14.7 % (11.5-14.5); WHITE BLOOD COUNT 8.1 X10'3 (4.5-11.0)
[2021-09-13 10:25] LABS: MEAN CORPUSCULAR VOLUME 90.8 FL (78-98)
[2021-09-13] MEDS ORDERED: albumin (human) 25% 100ml IV 100 ML IV PRN (10:30)
[2021-09-13] MEDS: NUT.TX.IMP.RENAL FXN,LAC-REDUC (Nepro) 237 ML VANILLA PO SCH (12:30)
--- NOTE | 2021-09-13 14:23 | NUR ---
WOUND INFECTION EDUCATION PROVIDED BY WOUND CARE 1. Patient instructed to call their primary doctor, or go the ED immediately if any of the following symptoms occur: * Increased pain in wound * Increase in drainage from the wound * Redness in the skin surrounding the wound * Warmth in the skin surrounding the wound * Bleeding from the wound * Temperature of 101 or greater 2. If any of these occur while in the hospital tell a nurse immediately. Addendum: 09/13/21 at 1423 by Sonia Keith LVN Amended: Links added.
--- NOTE | 2021-09-13 17:05 | NUR ---
Please disregard charges for hemodialysis 09/13/21 at 1702. The charge is duplicate. Addendum: 09/13/21 at 1706 by Gertrudis NIELSON RN Amended: Links added.
[2021-09-13 18:00] VITALS: BP 137/63
[2021-09-13 22:00] VITALS: BP 130/67
[2021-09-14] MEDS: clindamycin phosphate inj 300 MG in normal saline 50ml IV soln 48 ML IV SCH ×2 (03:58→12:01)
[2021-09-14 06:00] VITALS: BP 112/52
--- NOTE | 2021-09-14 06:19 | NUR ---
Patient in room ORTHO 4013. I have received report from Fredi AMAYA and had the opportunity to ask questions and assume patient care.
[2021-09-14] MEDS: docusate sod 100mg capsule PO SCH (08:00)
[2021-09-14] MEDS: hydrALAZINE 25 MG tablet PO SCH ×2 (08:00)
[2021-09-14] MEDS: furosemide 40mg tablet PO SCH ×2 (08:00→13:20)
[2021-09-14] MEDS: calcium carbonate 500mg chew tablet PO SCH ×2 (08:00→13:19)
[2021-09-14] MEDS: losartan 50mg tablet PO SCH (08:00)
[2021-09-14] MEDS ORDERED: fentaNYL/PF 50MCG/1 ML 2ML syringe ONE (10:07)
[2021-09-14] MEDS ORDERED: LIDOcaine 1%/PF 5ML 10 MG/ML VIAL ONE (10:07)
[2021-09-14] MEDS ORDERED: iohexol 350MG/ML 100ml bottle IV ONE ×2 (10:07→11:01)
[2021-09-14] MEDS ORDERED: midazolam 1 mg/ML 2ml injection ONE (10:07)
[2021-09-14] MEDS ORDERED: heparin 1,000 UNITS/NS 500ml 500 ML ONE (10:08)
[2021-09-14 11:57] VITALS: BP 142/64
[2021-09-14] MEDS: aspirin 81mg, enteric-coated 1 TAB TABLET.DR PO SCH (12:01)
[2021-09-14] MEDS: atorvastatin 20mg tablet PO SCH (12:01)
[2021-09-14] MEDS: pantoprazole 40mg Tablet.DR PO SCH (12:01)
[2021-09-14] MEDS: carVEDilol 12.5mg tablet PO SCH (12:01)
[2021-09-14] MEDS: ascorbic acid 500mg tablet PO SCH (12:02)
[2021-09-14] MEDS: clopidogrel 75mg tablet PO SCH (12:02)
[2021-09-14] MEDS: NUT.TX.IMP.RENAL FXN,LAC-REDUC (Nepro) 237 ML VANILLA PO SCH (12:30)
[2021-09-14 12:43] LABS: ALANINE AMINOTRANSFERASE 15 U/L (12-78); ALBUMIN 3.2 G/DL (3.4-5.0); ALBUMIN/GLOBULIN RATIO 0.8 (1.1-1.5); ALKALINE PHOSPHATASE 96 IU/L (46-116); ANION GAP 9 (8-16); ASPARTATE AMINO TRANSFERASE 18 U/L (10-37); BILIRUBIN,TOTAL 0.4 MG/DL (0.1-1.0); BLOOD UREA NITROGEN 20 MG/DL (7-18); BUN/CREATININE RATIO 4.1 (6.6-38.0); CALCIUM 8.1 MG/DL (8.5-10.1); CHLORIDE 100 MMOL/L (99-107); CREATININE 4.93 MG/DL (0.40-0.90); GLUCOSE 81 MG/DL (70-104); POTASSIUM 4.4 MMOL/L (3.5-5.1); SODIUM 136 MMOL/L (135-145); TOTAL CARBON DIOXIDE 26.8 MMOL/L (24-32); eGFR 9 ML/MIN
[2021-09-14 13:07] LABS: BASOPHILS # (AUTO) 0.1 X10'3 (0-0.2); EOSINOPHILS % (AUTO) 0.1 % (0-6); HEMATOCRIT 36.4 % (35.0-45.0); LYMPHOCYTES # (AUTO) 1.1 X10'3 (1.1-4.8); LYMPHOCYTES % (AUTO) 24.5 % (21-51); MEAN CORPUSCULAR HEMOGLOBIN 30.3 PG (27.0-31.0); MEAN CORPUSCULAR VOLUME 91.8 FL (78-98); MEAN PLATELET VOLUME 9.2 FL (7.4-10.4); MONOCYTES # (AUTO) 0.5 X10'3 (0-0.9); MONOCYTES % (AUTO) 10.6 % (2-12); NEUTROPHILS # (AUTO) 2.7 X10'3 (1.8-7.7); NEUTROPHILS % (AUTO) 62.8 % (42-75); PLATELET COUNT 245 X10'3 (140-440); RED BLOOD COUNT 3.97 X10'6 (4.20-5.60); RED CELL DISTRIBUTION WIDTH 14.6 % (11.5-14.5); WHITE BLOOD COUNT 4.4 X10'3 (4.5-11.0)
[2021-09-14] MEDS ORDERED: CLIN-91 PO (13:20)
[2021-09-14] MEDS: ondansetron 4mg rapidly disintigrating tab PO PRN (14:20)
--- NOTE | 2021-09-14 15:07 | NUR ---
Explained all discharge and medication instructions to pt. Pt verbalized understanding. Changed dressing to right groin and instructed daughter on how to dress the wound. Piv d/c'd and tip intact.
[2021-09-15] MEDS ORDERED: albumin (human) 25% 100ml IV 100 ML IV PRN (08:00)
[2021-09-15] MEDS ORDERED: EPOETIN ALFA-EPBX 20,000 UNIT/ML 1 ML MDV IV ONE (08:00)
== END 2021-09-14 14:45 | disposition home or self-care (01) | DRG 853 ==
LOC: ER 16:01 → ED HOLD 09-07 00:14 → ORTHO 4S 09-07 16:05
PROVIDERS: ADMIT Family Medicine; ATTEND Family Medicine
PROC: 0Y9C3ZZ Drainage of Right Upper Leg, Percutaneous Approach (ICD-10-PCS; 2021-09-07)
PROC: 0Y9C3ZZ Drainage of Right Upper Leg, Percutaneous Approach (ICD-10-PCS; 2021-09-08)
PROC: 5A1D70Z Performance of Urinary Filtration, Intermittent, Less than 6 Hours Per Day (ICD-10-PCS; 2021-09-08)
PROC: 5A1D70Z Performance of Urinary Filtration, Intermittent, Less than 6 Hours Per Day (ICD-10-PCS; 2021-09-11)
PROC: 0J9L0ZZ Drainage of Right Upper Leg Subcutaneous Tissue and Fascia, Open Approach (ICD-10-PCS; 2021-09-12)
PROC: 5A1D70Z Performance of Urinary Filtration, Intermittent, Less than 6 Hours Per Day (ICD-10-PCS; 2021-09-13)
PROC: 037Y3ZZ Dilation of Upper Artery, Percutaneous Approach (ICD-10-PCS; principal; 2021-09-14)
PROC: B51W1ZZ Fluoroscopy of Dialysis Shunt/Fistula using Low Osmolar Contrast (ICD-10-PCS; 2021-09-14)
DX: A41.9 Sepsis, unspecified organism (principal); N18.6 End stage renal disease; I50.32 Chronic diastolic (congestive) heart failure; I13.2 Hypertensive heart and chronic kidney disease with heart failure and with stage 5 chronic kidney disease, or end stage renal disease; L02.415 Cutaneous abscess of right lower limb; E87.1 Hypo-osmolality and hyponatremia; L03.115 Cellulitis of right lower limb; T82.858A Stenosis of other vascular prosthetic devices, implants and grafts, initial encounter; I48.91 Unspecified atrial fibrillation; I27.20 Pulmonary hypertension, unspecified; Y83.2 Surgical operation with anastomosis, bypass or graft as the cause of abnormal reaction of the patient, or of later complication, without mention of misadventure at the time of the procedure; D63.1 Anemia in chronic kidney disease; Y92.230 Patient room in hospital as the place of occurrence of the external cause; B95.61 Methicillin susceptible Staphylococcus aureus infection as the cause of diseases classified elsewhere; Z20.822 Contact with and (suspected) exposure to COVID-19; E78.5 Hyperlipidemia, unspecified; I25.10 Atherosclerotic heart disease of native coronary artery without angina pectoris; I25.2 Old myocardial infarction; Z86.72 Personal history of thrombophlebitis; Z90.710 Acquired absence of both cervix and uterus; Z93.2 Ileostomy status; Z95.5 Presence of coronary angioplasty implant and graft; Z99.2 Dependence on renal dialysis; Z88.2 Allergy status to sulfonamides; Z88.5 Allergy status to narcotic agent; Z88.8 Allergy status to other drugs, medicaments and biological substances
CPT/HCPCS: 36415; 36902; 71045; 80047; 80053; 82948; 83605; 83735; 83880; 84100; 84145; 85007; 85025; 85610; 85730; 87040; 87070; 87077; 87081; 87186; 93005; 99283; 99285; A4615; A4618; A4620; A6213; A6253; A6258; A6266; A6402; A6446; A6449; A7000; C1725; C1769; C1894; G0257; G0378; J1100; J1644; J2250; J2270; J2405; J2704; J3010; J3370; J3490; J7030; J7120; Q9967

== ENCOUNTER 2021-09-14 14:56 | Emergency (ER) | payer MEDICARE, OTHER ==
[~2021-09-14] VITALS: Ht 157.5 cm; Wt 85.0 kg
[~2021-09-14 14:56] MED LIST changes: +CLIN-91 PO; +CLOP75TA15 PO; -CLOP75TA34 PO
[2021-09-14] MEDS ORDERED: normal saline 1000ml 1,000 ML IV ONE (15:55)
[2021-09-14 16:43] VITALS: BP 115/42
== END 2021-09-14 16:45 | disposition home or self-care (01) ==
LOC: ER 14:58
DX: I12.9 Hypertensive chronic kidney disease with stage 1 through stage 4 chronic kidney disease, or unspecified chronic kidney disease (principal); N18.6 End stage renal disease; R42 Dizziness and giddiness; Z88.2 Allergy status to sulfonamides; Z88.8 Allergy status to other drugs, medicaments and biological substances; Z88.1 Allergy status to other antibiotic agents; Z91.011 Allergy to milk products; Z90.710 Acquired absence of both cervix and uterus
CPT/HCPCS: 93005; 99283; J7030

== ENCOUNTER 2022-05-08 16:31 | Emergency (ER) | payer MEDICARE, OTHER ==
[~2022-05-08] VITALS: Ht 157.5 cm; Wt 87.0 kg
[~2022-05-08 16:31] MED LIST changes: -CLIN-91 PO
[2022-05-08 16:47] VITALS: BP 137/60
[2022-05-08 16:57] LABS: BASOPHILS % (AUTO) 1.2 % (0-1); EOSINOPHILS % (AUTO) 0 % (0-6); HEMATOCRIT 30.9 % (35.0-45.0); HEMOGLOBIN 9.9 g/dl (12.0-16.0); LYMPHOCYTES # (AUTO) 0.7 X10'3 (1.1-4.8); LYMPHOCYTES % (AUTO) 18.3 % (21-51); MEAN CORPUSCULAR HEMOGLOBIN 28.6 PG (27.0-31.0); MEAN CORPUSCULAR HGB CONC 31.9 g/dL (33.0-36.5); MEAN CORPUSCULAR VOLUME 89.6 FL (78-98); MEAN PLATELET VOLUME 10.3 FL (7.4-10.4); MONOCYTES # (AUTO) 0.7 X10'3 (0-0.9); MONOCYTES % (AUTO) 17.7 % (2-12); NEUTROPHILS # (AUTO) 2.5 X10'3 (1.8-7.7); NEUTROPHILS % (AUTO) 62.8 % (42-75); PLATELET COUNT 149 X10'3 (140-440); RED BLOOD COUNT 3.45 X10'6 (4.20-5.60); RED CELL DISTRIBUTION WIDTH 14.3 % (11.5-14.5)
[2022-05-08 17:05] LABS: ALANINE AMINOTRANSFERASE 20 U/L (12-78); ALBUMIN 3.5 G/DL (3.4-5.0); ALKALINE PHOSPHATASE 296 IU/L (46-116); ANION GAP 11 (8-16); ASPARTATE AMINO TRANSFERASE 15 U/L (10-37); BILIRUBIN,TOTAL 0.3 MG/DL (0.1-1.0); BLOOD UREA NITROGEN 40 MG/DL (7-18); BUN/CREATININE RATIO 4.6 (6.6-38.0); CALCIUM 7.4 MG/DL (8.5-10.1); CHLORIDE 99 MMOL/L (99-107); CREATININE 8.68 MG/DL (0.40-0.90); GLUCOSE 143 MG/DL (70-104); POTASSIUM 4.6 MMOL/L (3.5-5.1); SODIUM 136 MMOL/L (135-145); TOTAL PROTEIN 7.1 G/DL (6.4-8.2); eGFR 4 ML/MIN
[2022-05-08 17:11] LABS: MAGNESIUM 1.8 MG/DL (1.5-2.4)
== END 2022-05-08 17:33 | disposition left against medical advice (07) ==
LOC: ER 16:34
DX: M79.601 Pain in right arm (principal); M79.602 Pain in left arm; Z53.21 Procedure and treatment not carried out due to patient leaving prior to being seen by health care provider
CPT/HCPCS: 36415; 80053; 83735; 83880; 84484; 85025; 93005; 99281

== ENCOUNTER 2022-05-09 14:28 | Emergency (ER) | payer MEDICARE, OTHER ==
[~2022-05-09] VITALS: Ht 157.5 cm; Wt 86.4 kg
[2022-05-09 17:08] VITALS: BP 144/69
[2022-05-09 18:34] LABS: EOSINOPHILS % (AUTO) 0 % (0-6); HEMATOCRIT 31.4 % (35.0-45.0); HEMOGLOBIN 10.2 g/dl (12.0-16.0); LYMPHOCYTES # (AUTO) 0.8 X10'3 (1.1-4.8); MEAN PLATELET VOLUME 10.3 FL (7.4-10.4); MONOCYTES # (AUTO) 0.6 X10'3 (0-0.9)
[2022-05-09 18:36] LABS: BASOPHILS % (AUTO) 1.3 % (0-1); LYMPHOCYTES % (AUTO) 25.7 % (21-51); MEAN CORPUSCULAR HEMOGLOBIN 29.6 PG (27.0-31.0); MEAN CORPUSCULAR HGB CONC 32.6 g/dL (33.0-36.5); MONOCYTES % (AUTO) 19.7 % (2-12); NEUTROPHILS # (AUTO) 1.7 X10'3 (1.8-7.7); NEUTROPHILS % (AUTO) 53.3 % (42-75); PLATELET COUNT 131 X10'3 (140-440); RED BLOOD COUNT 3.45 X10'6 (4.20-5.60); RED CELL DISTRIBUTION WIDTH 14.6 % (11.5-14.5); WHITE BLOOD COUNT 3.3 X10'3 (4.5-11.0)
[2022-05-09 19:16] LABS: PLATELET ESTIMATE DECREASED; TOTAL CELLS COUNTED 100
[2022-05-09 19:44] LABS: ALANINE AMINOTRANSFERASE 22 U/L (12-78); ALBUMIN 3.6 G/DL (3.4-5.0); ALBUMIN/GLOBULIN RATIO 0.9 (1.1-1.5); ALKALINE PHOSPHATASE 281 IU/L (46-116); ANION GAP 10 (8-16); ASPARTATE AMINO TRANSFERASE 19 U/L (10-37); BILIRUBIN,TOTAL 0.4 MG/DL (0.1-1.0); BLOOD UREA NITROGEN 39 MG/DL (7-18); BUN/CREATININE RATIO 4.6 (6.6-38.0); CALCIUM 7.7 MG/DL (8.5-10.1); CHLORIDE 100 MMOL/L (99-107); CREATININE 8.53 MG/DL (0.40-0.90); GLUCOSE 116 MG/DL (70-104); POTASSIUM 4.4 MMOL/L (3.5-5.1); SODIUM 139 MMOL/L (135-145); TOTAL CARBON DIOXIDE 29.2 MMOL/L (24-32); TOTAL PROTEIN 7.4 G/DL (6.4-8.2); eGFR 5 ML/MIN
[2022-05-09 19:55] LABS: MAGNESIUM 1.9 MG/DL (1.5-2.4)
--- NOTE | 2022-05-09 20:03 | NUR ---
Pt has had issues with her dialysis machine and had to acquire a new machine. Yesterday she only had a partial treatment. However, her issue is that when the machine is going her left arm hurts, like she describes it as though she gets twinges in it. Now the arm looks great, WNLS, cap refill good, good ROM, looks comparable to the other arm. There is a thrill on the access site. Radial pulses WNLs and no redness, warmth or swelling at all. She tells me she is also in Physical therapy due to neck problems.
== END 2022-05-09 21:04 | disposition home or self-care (01) ==
LOC: ER 14:29
DX: M79.602 Pain in left arm (principal); I12.0 Hypertensive chronic kidney disease with stage 5 chronic kidney disease or end stage renal disease; N18.9 Chronic kidney disease, unspecified; Z88.1 Allergy status to other antibiotic agents; Z88.2 Allergy status to sulfonamides; Z90.710 Acquired absence of both cervix and uterus
CPT/HCPCS: 36415; 71045; 80053; 83735; 83880; 84484; 85007; 85025; 93005; 99285

== ENCOUNTER 2022-05-18 12:22 | Emergency (ER) | payer MEDICARE, OTHER ==
[~2022-05-18] VITALS: Ht 157.5 cm; Wt 84.1 kg
[2022-05-18 13:38] LABS: BASOPHILS % (AUTO) 0.2 % (0-1); EOSINOPHILS % (AUTO) 0 % (0-6); HEMATOCRIT 32.3 % (35.0-45.0); HEMOGLOBIN 10.5 g/dl (12.0-16.0); LYMPHOCYTES # (AUTO) 0.9 X10'3 (1.1-4.8); LYMPHOCYTES % (AUTO) 5.8 % (21-51); MEAN CORPUSCULAR HEMOGLOBIN 28.9 PG (27.0-31.0); MEAN CORPUSCULAR HGB CONC 32.5 g/dL (33.0-36.5); MEAN CORPUSCULAR VOLUME 88.6 FL (78-98); MONOCYTES # (AUTO) 1.4 X10'3 (0-0.9); MONOCYTES % (AUTO) 9.5 % (2-12); NEUTROPHILS # (AUTO) 12.5 X10'3 (1.8-7.7); NEUTROPHILS % (AUTO) 84.5 % (42-75); PLATELET COUNT 206 X10'3 (140-440); RED BLOOD COUNT 3.64 X10'6 (4.20-5.60); RED CELL DISTRIBUTION WIDTH 13.4 % (11.5-14.5); WHITE BLOOD COUNT 14.8 X10'3 (4.5-11.0)
[2022-05-18 13:51] LABS: APTT 26 SECONDS (22-32)
[2022-05-18 13:54] LABS: ALANINE AMINOTRANSFERASE 12 U/L (12-78); ALBUMIN 3.3 G/DL (3.4-5.0); ALBUMIN/GLOBULIN RATIO 0.8 (1.1-1.5); ALKALINE PHOSPHATASE 211 IU/L (46-116); ANION GAP 16 (8-16); ASPARTATE AMINO TRANSFERASE 13 U/L (10-37); BILIRUBIN,TOTAL 0.8 MG/DL (0.1-1.0); BLOOD UREA NITROGEN 46 MG/DL (7-18); BUN/CREATININE RATIO 4.6 (10.0-20.0); CALCIUM 8.1 MG/DL (8.5-10.1); CHLORIDE 95 MMOL/L (99-107); CREATININE 9.97 MG/DL (0.40-0.90); GLUCOSE 103 MG/DL (70-104); POTASSIUM 4.6 MMOL/L (3.5-5.1); SODIUM 136 MMOL/L (135-145); TOTAL PROTEIN 7.6 G/DL (6.4-8.2); eGFR 4 ML/MIN
[2022-05-18] MEDS ORDERED: azithromycin 250mg tablet PO ONE (15:05)
[2022-05-18] MEDS ORDERED: AZIT250T82 PO (15:13)
[2022-05-18] MEDS ORDERED: GUAI-692 PO (15:14)
--- NOTE | 2022-05-18 15:30 | NUR ---
ROOM AIR SPO2 88%.PT SPO2 IMPROVES WITH 2L OF O2 (95%).NOT ON ANY HOME OXYGEN.
--- NOTE | 2022-05-18 15:43 | NUR ---
PAGED CASE MGT FOR HOME O2 REQUEST.
--- NOTE | 2022-05-18 15:45 | NUR ---
RN DID AMBULATION TEST ON RA WITH PT AND HER SAT DROPPED TO 79%. RN APPLIED O2 AND SAT INCREASED TO 92% ON [address] CRUZ AND PT WILL BE DC WITH O2. RN WILL REACH OUT TO CM TO GET O2 DELIVERED.
--- NOTE | 2022-05-18 15:45 | NUR ---
Note melanie in EDM - 05/18/22 at 1605 by AUSTEN RN DID AMBULATION TEST ON RA WITH PT AND HER SAT DROPPED TO 79%. RN NOTIFIED DR CRUZ AND PT WILL BE DC WITH O2. RN WILL REACH OUT TO CM TO GET O2 DELIVERED.
[2022-05-18 16:02] VITALS: BP 146/68
--- NOTE | 2022-05-18 16:05 | NUR ---
Note karmahannah in EDM - 05/18/22 at 1606 by AUSTEN RN DID AMBULATION TEST ON RA WITH PT AND HER SAT DROPPED TO 79%. RN APPLIED O2 AND SAT INCREASED TO 92% ON [address] CRUZ AND PT WILL BE DC WITH O2. RN WILL REACH OUT TO CM TO GET O2 DELIVERED.
--- NOTE | 2022-05-18 16:49 | NUR ---
RECD PAGE FROM ER THAT PATIENT QUALIFIES FOR O2. O2 SATS 88% ON RA AT REST AND 95% AT REST WITH O2 2L NC. PATIENT ALSO DESATS WITH AMBULATION. CONTACTED [facility]. PATIENT DIAGNOSIS IS SUCH THAT THEY CAN ONLY APPROVE 90 DAY SUPPLY. IN TO SPEAK WITH MD. HE IS AWARE AND IN AGREEMENT WITH THIS PATIENT HAS ACUTE BRONCHITIS/ PULMONARY CONGESTION/ESRD. PATIENT UNABLE TO COMPLETE HD YESTERDAY MACHINE BROKE BUT SHE IS GETTING A NEW ONE TODAY. IN TO SPEAK WITH PATIENT. FAMILY AT BEDSIDE. NOTIFIED THEM THAT [facility] WILL DELIVER O2 TO BEDSIDE AND IT IS A 90 DAY SUPPLY. PATIENT WILL NEED TO FOLLOW UP AT [facility] PRIOR TO 90 DAY WINDOW. PATIENT IS ALSO GETTING NEW HOME DIALYSIS MACHINE TONIGHT SO SHE WILL BE ABLE TO PERFORM HER DIALYSIS. [facility] TO DELIVER TO BEDSIDE TODAY. ORDERS GIVEN TO SCRIP CLERK FOR [facility].
--- NOTE | 2022-05-18 17:26 | NUR ---
RN WAITING ON O2 TO BE DELIVERED FOR DISCHARGE. NO ETA GIVEN BY CM.
== END 2022-05-18 18:07 | disposition home or self-care (01) ==
LOC: ER 12:23
DX: J20.9 Acute bronchitis, unspecified (principal); Z20.822 Contact with and (suspected) exposure to COVID-19; N18.6 End stage renal disease; I11.9 Hypertensive heart disease without heart failure; I50.9 Heart failure, unspecified; Z79.899 Other long term (current) drug therapy; Z88.1 Allergy status to other antibiotic agents; Z88.2 Allergy status to sulfonamides; Z88.5 Allergy status to narcotic agent; Z91.011 Allergy to milk products
CPT/HCPCS: 36415; 71045; 80053; 83880; 85025; 85610; 85730; 87502; 87503; 87635; 93005; 99285; C9803

== ENCOUNTER 2022-05-20 11:04 | Inpatient (IN) | payer MEDICARE, OTHER ==
[~2022-05-20] VITALS: Ht 157.5 cm; Wt 85.0 kg
[~2022-05-20 11:04] MED LIST changes: +AZIT250T82 PO; +GUAI-692 PO
[2022-05-20 11:58] LABS: BASOPHILS # (AUTO) 0.1 X10'3 (0-0.2); BASOPHILS % (AUTO) 0.9 % (0-1); EOSINOPHILS % (AUTO) 0 % (0-6); HEMATOCRIT 32.8 % (35.0-45.0); HEMOGLOBIN 10.7 g/dl (12.0-16.0); LYMPHOCYTES # (AUTO) 0.6 X10'3 (1.1-4.8); LYMPHOCYTES % (AUTO) 4.9 % (21-51); MEAN CORPUSCULAR HEMOGLOBIN 28.8 PG (27.0-31.0); MEAN CORPUSCULAR HGB CONC 32.8 g/dL (33.0-36.5); MEAN PLATELET VOLUME 9.6 FL (7.4-10.4); MONOCYTES # (AUTO) 1.6 X10'3 (0-0.9); NEUTROPHILS # (AUTO) 9.8 X10'3 (1.8-7.7); NEUTROPHILS % (AUTO) 81.2 % (42-75); PLATELET COUNT 225 X10'3 (140-440); RED BLOOD COUNT 3.72 X10'6 (4.20-5.60); RED CELL DISTRIBUTION WIDTH 14.2 % (11.5-14.5); WHITE BLOOD COUNT 12.1 X10'3 (4.5-11.0)
[2022-05-20 12:16] LABS: ALANINE AMINOTRANSFERASE 11 U/L (12-78); ALBUMIN 3.2 G/DL (3.4-5.0); ALBUMIN/GLOBULIN RATIO 0.6 (1.1-1.5); ALKALINE PHOSPHATASE 204 IU/L (46-116); ANION GAP 15 (8-16); ASPARTATE AMINO TRANSFERASE 15 U/L (10-37); BILIRUBIN,TOTAL 0.8 MG/DL (0.1-1.0); BLOOD UREA NITROGEN 48 MG/DL (7-18); BUN/CREATININE RATIO 5.9 (10.0-20.0); CALCIUM 8.6 MG/DL (8.5-10.1); CHLORIDE 92 MMOL/L (99-107); GLUCOSE 115 MG/DL (70-104); POTASSIUM 4.2 MMOL/L (3.5-5.1); SODIUM 134 MMOL/L (135-145); TOTAL CARBON DIOXIDE 26.8 MMOL/L (24-32); TOTAL PROTEIN 8.3 G/DL (6.4-8.2); eGFR 5 ML/MIN
[2022-05-20] MEDS ORDERED: METO25TA6 PO (17:28)
[2022-05-20] MEDS ORDERED: UBID10CA4 PO (17:28)
[2022-05-20] MEDS ORDERED: SODI650T29 PO (17:28)
[2022-05-20] MEDS ORDERED: FOLI1TAB50 PO (17:35)
[2022-05-20 18:00] VITALS: BP 108/72
[2022-05-20] MEDS ORDERED: magnesium 4gm in 100ml NS 100 ML IV PRN (18:40)
[2022-05-20] MEDS ORDERED: magnesium hydroxide 30ml (MOM) UD suspension PO PRN (18:40)
[2022-05-20] MEDS ORDERED: potassium Cl 20 mEq SR tablet PO PRN ×2 (18:40)
[2022-05-20] MEDS ORDERED: mag hydrox/Alum hydrox/simeth 30ml oral suspension PO PRN (18:40)
[2022-05-20] MEDS ORDERED: diphenhydrAMINE 25mg capsule PO PRN (18:40)
[2022-05-20] MEDS ORDERED: potassium Cl 40MEQ/1/2NS 520ml 520 ML IV PRN (18:40)
[2022-05-20] MEDS ORDERED: ipratropium/albuterol 3ml nebule NEB PRN (18:40)
[2022-05-20] MEDS ORDERED: acetaminophen 325mg tablet PO PRN ×2 (18:40)
[2022-05-20] MEDS ORDERED: magnesium Cl slow-release 64mg tablet PO PRN (18:40)
[2022-05-20] MEDS: K and/or MAG REPLACEMENT MC SCH (18:49)
[2022-05-20] MEDS: docusate sod 100mg capsule PO SCH (19:49)
[2022-05-20] MEDS: CefTRIAXone/D5W-Rocephin 1gm 50 ML IV SCH (20:13)
[2022-05-20] MEDS: calcium carbonate 500mg chew tablet PO SCH ×2 (21:00→22:14)
[2022-05-20] MEDS ORDERED: temazepam 15mg capsule PO PRN (21:00)
[2022-05-20] MEDS: atorvastatin 20mg tablet PO SCH ×2 (21:00→22:11)
[2022-05-20] MEDS: guaiFENesin ER 600mg tablet PO SCH ×2 (21:11→22:12)
[2022-05-20] MEDS: heparin, porcine 5000 units/ml vial SQ SCH ×2 (21:12→22:15)
[2022-05-20] MEDS: sodium bicarbonate 650mg tablet PO SCH ×2 (21:12→22:11)
--- NOTE | 2022-05-20 21:15 | NUR ---
PATIENT ADMITTED TO ROOM 360A FROM ER FOR PNA, DYSPNEA AND ESRD. PLACED COMFORTABLE IN BED. VITAL SIGNS TAKEN AND RECORDED.
[2022-05-20 21:21] VITALS: BP 124/60
[2022-05-20 22:00] VITALS: BP 154/73
[2022-05-21] MEDS: ondansetron/PF 4mg/2ml inj IV PRN ×2 (00:17→16:36)
[2022-05-21] MEDS: benzonatate 100mg capsule PO PRN (00:20)
[2022-05-21 06:13] VITALS: BP 144/64
--- NOTE | 2022-05-21 06:36 | NUR ---
Problems reprioritized. Patient report given, questions answered & plan of care reviewed with CESIA AMAYA.
--- NOTE | 2022-05-21 06:45 | NUR ---
Patient in room [facility] 360A. I have received report from GEMA RIBEIRO RN and had the opportunity to ask questions and assume patient care.
[2022-05-21] MEDS ORDERED: heparin 1,000unit/ml 10ml vial 10 ML IV ONE (06:50)
[2022-05-21] MEDS ORDERED: albumin (human) 25% 100ml IV 100 ML IV PRN (06:50)
[2022-05-21] MEDS ORDERED: heparin 1,000 units/ml 10ml inj IV ONE (06:50)
[2022-05-21 07:25] LABS: BASOPHILS # (AUTO) 0.1 X10'3 (0-0.2); BASOPHILS % (AUTO) 0.6 % (0-1); EOSINOPHILS % (AUTO) 0 % (0-6); HEMATOCRIT 28.7 % (35.0-45.0); HEMOGLOBIN 9.6 g/dl (12.0-16.0); LYMPHOCYTES # (AUTO) 0.8 X10'3 (1.1-4.8); LYMPHOCYTES % (AUTO) 8.1 % (21-51); MEAN CORPUSCULAR HEMOGLOBIN 29.3 PG (27.0-31.0); MEAN CORPUSCULAR HGB CONC 33.4 g/dL (33.0-36.5); MEAN CORPUSCULAR VOLUME 87.8 FL (78-98); MONOCYTES # (AUTO) 1.3 X10'3 (0-0.9); MONOCYTES % (AUTO) 12.4 % (2-12); NEUTROPHILS % (AUTO) 78.9 % (42-75); PLATELET COUNT 228 X10'3 (140-440); RED BLOOD COUNT 3.27 X10'6 (4.20-5.60); WHITE BLOOD COUNT 10.1 X10'3 (4.5-11.0)
[2022-05-21] MEDS: K and/or MAG REPLACEMENT MC SCH ×2 (08:00→20:00)
[2022-05-21] MEDS: non-formulary drug (Ubidecarenone (Co Q-10) 1 CAP) PO SCH (08:00)
[2022-05-21] MEDS: docusate sod 100mg capsule PO SCH ×2 (08:00→20:25)
[2022-05-21] MEDS: metoprolol tartrate 25mg tablet PO SCH (08:00)
[2022-05-21 08:27] LABS: ALANINE AMINOTRANSFERASE 10 U/L (12-78); ALBUMIN 2.6 G/DL (3.4-5.0); ALBUMIN/GLOBULIN RATIO 0.6 (1.1-1.5); ALKALINE PHOSPHATASE 165 IU/L (46-116); ANION GAP 11 (8-16); ASPARTATE AMINO TRANSFERASE 12 U/L (10-37); BILIRUBIN,TOTAL 0.7 MG/DL (0.1-1.0); BLOOD UREA NITROGEN 70 MG/DL (7-18); BUN/CREATININE RATIO 7.1 (10.0-20.0); CALCIUM 7.9 MG/DL (8.5-10.1); CHLORIDE 93 MMOL/L (99-107); CREATININE 9.83 MG/DL (0.40-0.90); GLUCOSE 118 MG/DL (70-104); MAGNESIUM 1.8 MG/DL (1.5-2.4); POTASSIUM 4.6 MMOL/L (3.5-5.1); SODIUM 133 MMOL/L (135-145); TOTAL CARBON DIOXIDE 28.6 MMOL/L (24-32); eGFR 4 ML/MIN
[2022-05-21 08:29] LABS: FERRITIN 1944 NG/ML (8-252)
[2022-05-21] MEDS: sodium bicarbonate 650mg tablet PO SCH ×2 (08:53→20:23)
[2022-05-21] MEDS: calcium carbonate 500mg chew tablet PO SCH ×3 (08:53→20:23)
[2022-05-21] MEDS: MULTIVIT-MIN/FERROUS GLUCONATE 9 MG/15 ML LIQUID PO SCH (08:54)
[2022-05-21] MEDS: aspirin 81mg, enteric-coated 1 TAB TABLET.DR PO SCH (08:54)
[2022-05-21] MEDS: guaiFENesin ER 600mg tablet PO SCH ×2 (08:54→20:23)
[2022-05-21] MEDS: CefTRIAXone/D5W-Rocephin 1gm 50 ML IV SCH (08:54)
[2022-05-21] MEDS: clopidogrel 75mg tablet PO SCH (08:54)
[2022-05-21] MEDS: ascorbic acid 500mg tablet PO SCH (08:55)
[2022-05-21] MEDS: heparin, porcine 5000 units/ml vial SQ SCH ×2 (08:56→20:24)
[2022-05-21 09:13] LABS: % IRON SATURATION 20 % (11-46); IRON 25 UG/DL (49-151); TOTAL IRON BINDING CAPACITY 126 UG/DL (259-388)
[2022-05-21 10:40] VITALS: BP 99/50
[2022-05-21 11:00] VITALS: BP_SYST 104; BP_SYST 126; BP_SYST 134; BP_DIAS 58; BP_DIAS 59; BP_DIAS 85
--- NOTE | 2022-05-21 14:46 | NUR ---
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 Pt w/ normal strength, no edema/wounds, and pending scaled wt admit current reported wt 85kg per EMR. Pt reports 2-13 pounds wt loss w/ last scaled wt standing scale 05/08/22 87kg though would need scaled wt this admit to more accurately determine. Pt also likely to have frequent wt fluctuations given HD 3 times per week and Ileostomy losses. Pending PO documentation of initial renal diet this admit. Pt lacks minimum malnutrition criteria at this time. Will monitor for further malnutrition criteria this admit. Addendum: 05/21/22 at [address] Amended: Links added.
[2022-05-21] MEDS: HYDROcodone/acetaminophen 5mg/325mg tablet PO PRN (17:24)
[2022-05-21 18:00] VITALS: BP 110/48
--- NOTE | 2022-05-21 18:26 | NUR ---
Problems reprioritized. Patient report given, questions answered & plan of care reviewed with GEMA RIBEIRO RN.
--- NOTE | 2022-05-21 18:30 | NUR ---
Patient in room [facility] 360. I have received report from CESIA AMAYA and had the opportunity to ask questions and assume patient care.
[2022-05-21] MEDS: atorvastatin 20mg tablet PO SCH (20:23)
[2022-05-21 22:00] VITALS: BP 122/75
[2022-05-22] VITALS (9 sets, daily range): BP systolic 91–118; BP diastolic 48–58
[2022-05-22 06:17] LABS: BASOPHILS # (AUTO) 0.1 X10'3 (0-0.2); BASOPHILS % (AUTO) 0.8 % (0-1); EOSINOPHILS % (AUTO) 0 % (0-6); HEMATOCRIT 29.7 % (35.0-45.0); HEMOGLOBIN 9.6 g/dl (12.0-16.0); LYMPHOCYTES # (AUTO) 0.9 X10'3 (1.1-4.8); LYMPHOCYTES % (AUTO) 9.9 % (21-51); MEAN CORPUSCULAR HEMOGLOBIN 28.7 PG (27.0-31.0); MEAN CORPUSCULAR HGB CONC 32.4 g/dL (33.0-36.5); MEAN CORPUSCULAR VOLUME 88.8 FL (78-98); MEAN PLATELET VOLUME 9.8 FL (7.4-10.4); MONOCYTES # (AUTO) 1.1 X10'3 (0-0.9); MONOCYTES % (AUTO) 12.1 % (2-12); NEUTROPHILS # (AUTO) 7.2 X10'3 (1.8-7.7); NEUTROPHILS % (AUTO) 77.2 % (42-75); PLATELET COUNT 248 X10'3 (140-440); RED BLOOD COUNT 3.35 X10'6 (4.20-5.60); RED CELL DISTRIBUTION WIDTH 14.3 % (11.5-14.5); WHITE BLOOD COUNT 9.3 X10'3 (4.5-11.0)
[2022-05-22 06:39] LABS: ALANINE AMINOTRANSFERASE 8 U/L (12-78); ALBUMIN 2.6 G/DL (3.4-5.0); ALBUMIN/GLOBULIN RATIO 0.6 (1.1-1.5); ALKALINE PHOSPHATASE 175 IU/L (46-116); ANION GAP 10 (8-16); ASPARTATE AMINO TRANSFERASE 22 U/L (10-37); BILIRUBIN,TOTAL 0.5 MG/DL (0.1-1.0); BLOOD UREA NITROGEN 45 MG/DL (7-18); BUN/CREATININE RATIO 6.9 (10.0-20.0); CALCIUM 8.1 MG/DL (8.5-10.1); CHLORIDE 97 MMOL/L (99-107); CREATININE 6.55 MG/DL (0.40-0.90); GLUCOSE 95 MG/DL (70-104); POTASSIUM 4.2 MMOL/L (3.5-5.1); SODIUM 136 MMOL/L (135-145); TOTAL CARBON DIOXIDE 29.5 MMOL/L (24-32); eGFR 6 ML/MIN
[2022-05-22] MEDS: HYDROcodone/acetaminophen 5mg/325mg tablet PO PRN ×3 (06:50→19:43)
--- NOTE | 2022-05-22 07:06 | NUR ---
Patient in room [facility] 360. I have received report from Princess Sánchez RN and had the opportunity to ask questions and assume patient care.
[2022-05-22] MEDS: CefTRIAXone/D5W-Rocephin 1gm 50 ML IV SCH (07:25)
[2022-05-22] MEDS: clopidogrel 75mg tablet PO SCH (07:26)
[2022-05-22] MEDS: aspirin 81mg, enteric-coated 1 TAB TABLET.DR PO SCH (07:27)
[2022-05-22] MEDS: MULTIVIT-MIN/FERROUS GLUCONATE 9 MG/15 ML LIQUID PO SCH (07:27)
[2022-05-22] MEDS: metoprolol tartrate 25mg tablet PO SCH (07:27)
[2022-05-22] MEDS: guaiFENesin ER 600mg tablet PO SCH ×2 (07:27→19:43)
[2022-05-22] MEDS: sodium bicarbonate 650mg tablet PO SCH ×2 (07:27→19:42)
[2022-05-22] MEDS: calcium carbonate 500mg chew tablet PO SCH ×3 (07:27→19:42)
[2022-05-22] MEDS: ascorbic acid 500mg tablet PO SCH (07:28)
[2022-05-22] MEDS: heparin, porcine 5000 units/ml vial SQ SCH ×2 (07:28→19:43)
--- NOTE | 2022-05-22 07:43 | NUR ---
PAGER ID: [phone] MESSAGE: MESSAGE: Amira Surg [id number] Re: 360A Fong patient having pain on left shoulder , neck radiates to her left elbow. Please call patient states she has had this with dialysis in the past.
--- NOTE | 2022-05-22 07:54 | NUR ---
Spoke to Dr Hopkins regarding patient having pain to left shoulder, neck and elbow. Patient states this has been going on since during dialysis yesterday. Patient did say it subsided but then came back and pain is 8/10. no chest pressure. Received orders from Dr Hopkins for EKG, Troponin, and place on Tele Dr Hopkins aware patient had a Echo yesterday
[2022-05-22] MEDS: non-formulary drug (Ubidecarenone (Co Q-10) 1 CAP) PO SCH (08:00)
[2022-05-22] MEDS: docusate sod 100mg capsule PO SCH ×2 (08:00→19:47)
[2022-05-22] MEDS: K and/or MAG REPLACEMENT MC SCH ×2 (08:00→20:00)
--- NOTE | 2022-05-22 08:17 | NUR ---
PAGER ID: [phone] MESSAGE: Amira Cooper [phone] Re: Ajit JatinA current BP 95/48. please call re: Nitrogylcerin orde Addendum: 05/22/22 at 0819 by Amira Hart RN Per Dr Sajan lee to give Nitroglycerin
[2022-05-22] MEDS ORDERED: nitroGLYCERIN 0.4mg SUBLingual tab SL PRN ×2 (08:20)
--- NOTE | 2022-05-22 08:30 | NUR ---
nitroglycerin SL given per MD orders
--- NOTE | 2022-05-22 15:00 | NUR ---
Spoke to Nusrat AMAYA in Angio and she is aware patient is scheduled for a fistulagram tomorrow and has dialysis scheduled. Per Nusrat they hope to get to her by lunch but not sure. I spoke to Dr Hopkins who is aware of the above and would like the Fistulagram to be done prior to patient getting dialysis. If they dialysis people call ask them to put her last on the list so the fistulagram can be completed.
--- NOTE | 2022-05-22 18:26 | NUR ---
Problems reprioritized. Patient report given, questions answered & plan of care reviewed with Princess Sánchez RN.
--- NOTE | 2022-05-22 18:30 | NUR ---
Patient in room [facility] 360. I have received report from NICOLE AMAYA and had the opportunity to ask questions and assume patient care.
[2022-05-22] MEDS: atorvastatin 20mg tablet PO SCH (19:42)
[2022-05-22] MEDS: benzonatate 100mg capsule PO PRN (19:43)
[2022-05-22] MEDS: ondansetron/PF 4mg/2ml inj IV PRN (23:00)
[2022-05-23] VITALS (9 sets, daily range): BP systolic 84–127; BP diastolic 30–69
[2022-05-23 06:18] LABS: BASOPHILS # (AUTO) 0.1 X10'3 (0-0.2); BASOPHILS % (AUTO) 0.8 % (0-1); EOSINOPHILS % (AUTO) 0 % (0-6); HEMATOCRIT 28.5 % (35.0-45.0); HEMOGLOBIN 9.5 g/dl (12.0-16.0); LYMPHOCYTES % (AUTO) 12.7 % (21-51); MEAN CORPUSCULAR HEMOGLOBIN 29.7 PG (27.0-31.0); MEAN CORPUSCULAR HGB CONC 33.4 g/dL (33.0-36.5); MEAN PLATELET VOLUME 9.4 FL (7.4-10.4); MONOCYTES % (AUTO) 13.3 % (2-12); NEUTROPHILS # (AUTO) 5.7 X10'3 (1.8-7.7); NEUTROPHILS % (AUTO) 73.2 % (42-75); PLATELET COUNT 253 X10'3 (140-440); RED CELL DISTRIBUTION WIDTH 14.1 % (11.5-14.5); WHITE BLOOD COUNT 7.8 X10'3 (4.5-11.0)
--- NOTE | 2022-05-23 06:20 | NUR ---
Problems reprioritized. Patient report given, questions answered & plan of care reviewed with DAENLLE AMAYA.
[2022-05-23 06:27] LABS: ALANINE AMINOTRANSFERASE 13 U/L (12-78); ALBUMIN 2.6 G/DL (3.4-5.0); ALBUMIN/GLOBULIN RATIO 0.6 (1.1-1.5); ALKALINE PHOSPHATASE 182 IU/L (46-116); ANION GAP 13 (8-16); ASPARTATE AMINO TRANSFERASE 16 U/L (10-37); BILIRUBIN,TOTAL 0.7 MG/DL (0.1-1.0); BLOOD UREA NITROGEN 70 MG/DL (7-18); BUN/CREATININE RATIO 8.1 (10.0-20.0); CALCIUM 7.8 MG/DL (8.5-10.1); CHLORIDE 94 MMOL/L (99-107); CREATININE 8.59 MG/DL (0.40-0.90); GLUCOSE 111 MG/DL (70-104); POTASSIUM 4.8 MMOL/L (3.5-5.1); SODIUM 135 MMOL/L (135-145); TOTAL PROTEIN 7.1 G/DL (6.4-8.2); eGFR 4 ML/MIN
[2022-05-23] MEDS: CefTRIAXone/D5W-Rocephin 1gm 50 ML IV SCH (07:26)
[2022-05-23] MEDS: heparin, porcine 5000 units/ml vial SQ SCH ×2 (08:00→20:12)
[2022-05-23] MEDS: sodium bicarbonate 650mg tablet PO SCH ×2 (08:00→20:11)
[2022-05-23] MEDS ORDERED: albumin (human) 25% 100ml IV 100 ML IV PRN (08:00)
[2022-05-23] MEDS: clopidogrel 75mg tablet PO SCH (08:00)
[2022-05-23] MEDS: metoprolol tartrate 25mg tablet PO SCH (08:00)
[2022-05-23] MEDS: calcium carbonate 500mg chew tablet PO SCH ×3 (08:00→20:11)
[2022-05-23] MEDS: guaiFENesin ER 600mg tablet PO SCH ×2 (08:00→20:11)
[2022-05-23] MEDS: ascorbic acid 500mg tablet PO SCH (08:00)
[2022-05-23] MEDS: K and/or MAG REPLACEMENT MC SCH ×2 (08:00→20:00)
[2022-05-23] MEDS ORDERED: EPOETIN ALFA-EPBX 20,000 UNIT/ML 1 ML MDV IV ONE (08:00)
[2022-05-23] MEDS: MULTIVIT-MIN/FERROUS GLUCONATE 9 MG/15 ML LIQUID PO SCH (08:00)
[2022-05-23] MEDS ORDERED: LIDOcaine 1% (10mg/ml) 2ml vial SQ ONE (08:00)
[2022-05-23] MEDS: docusate sod 100mg capsule PO SCH ×2 (08:00→20:00)
[2022-05-23] MEDS: non-formulary drug (Ubidecarenone (Co Q-10) 1 CAP) PO SCH (08:00)
[2022-05-23] MEDS ORDERED: heparin 1,000 units/ml 10ml inj IV ONE (08:00)
[2022-05-23] MEDS ORDERED: heparin 1,000unit/ml 10ml vial 10 ML IV ONE (08:00)
[2022-05-23] MEDS: aspirin 81mg, enteric-coated 1 TAB TABLET.DR PO SCH (08:00)
[2022-05-23] MEDS: ondansetron/PF 4mg/2ml inj IV PRN (08:21)
[2022-05-23] MEDS: HYDROcodone/acetaminophen 5mg/325mg tablet PO PRN (09:15)
[2022-05-23] MEDS ORDERED: fentaNYL/PF 50MCG/1 ML 2ML syringe ONE (09:43)
[2022-05-23] MEDS ORDERED: iohexol 300mg/ml 100ml inj. ONE (09:43)
[2022-05-23] MEDS ORDERED: midazolam 1 mg/ML 2ml injection ONE (09:43)
[2022-05-23] MEDS ORDERED: heparin 1,000 UNITS/NS 500ml 500 ML ONE (09:44)
--- NOTE | 2022-05-23 11:29 | NUR ---
Nutrition consult "pt would like to speak about renal diet": Pt seen by RD at bedside. Pt reports knowledge of renal diet has followed diet appropriately in past typically moderates higher electrolyte foods but has questions since has had Ileostomy since 1984 as well. Noted normal/low serum Na, low Cl, K WNL LOS, no Phos level this admit, and pt takes Na-bicarb daily per EMR. RD provided written/verbal education on renal diet guidelines w/ RD contact information and caveat concerns Ileostomy output and insensible losses. Pt reports does not eat milk products typically eats non-dairy products in moderation; RD encouraged pt to inspect nutrition facts labels for these products. RD encouraged pt to contact dietitian's office if further nutrition questions/concerns. KELLY d/w RN regarding routine Phos level this admit if MD agreeable since on HD taking Tums TID daily per EMR. Addendum: 05/23/22 at [address] Amended: Links added.
--- NOTE | 2022-05-23 13:21 | NUR ---
T/C to Dr. Hopkins after fistulagram finished. he said okay for patient to proceed with dialysis today.
--- NOTE | 2022-05-23 15:00 | NUR ---
Patient report given, questions answered & plan of care reviewed with certified vehicle fire investigator & Techs. They assumed care of patient in room 4009 and will call when dialysis is finished.
--- NOTE | 2022-05-23 16:02 | NUR ---
dog track kennel manager Steve will be giving Epoetin at end of dialysis. per t/c
[2022-05-23] MEDS: atorvastatin 20mg tablet PO SCH (20:12)
[2022-05-24 06:10] LABS: BASOPHILS # (AUTO) 0.1 X10'3 (0-0.2); BASOPHILS % (AUTO) 1.7 % (0-1); EOSINOPHILS % (AUTO) 0.1 % (0-6); HEMATOCRIT 28.8 % (35.0-45.0); HEMOGLOBIN 9.5 g/dl (12.0-16.0); LYMPHOCYTES # (AUTO) 1.2 X10'3 (1.1-4.8); LYMPHOCYTES % (AUTO) 19.2 % (21-51); MEAN CORPUSCULAR HEMOGLOBIN 29.9 PG (27.0-31.0); MEAN CORPUSCULAR HGB CONC 32.9 g/dL (33.0-36.5); MEAN PLATELET VOLUME 9.2 FL (7.4-10.4); MONOCYTES # (AUTO) 0.9 X10'3 (0-0.9); MONOCYTES % (AUTO) 15.2 % (2-12); NEUTROPHILS % (AUTO) 63.8 % (42-75); PLATELET COUNT 267 X10'3 (140-440); RED BLOOD COUNT 3.16 X10'6 (4.20-5.60); RED CELL DISTRIBUTION WIDTH 14.1 % (11.5-14.5); WHITE BLOOD COUNT 6.2 X10'3 (4.5-11.0)
[2022-05-24 06:13] LABS: ALANINE AMINOTRANSFERASE 12 U/L (12-78); ALBUMIN 2.5 G/DL (3.4-5.0); ALBUMIN/GLOBULIN RATIO 0.6 (1.1-1.5); ALKALINE PHOSPHATASE 182 IU/L (46-116); ANION GAP 9 (8-16); ASPARTATE AMINO TRANSFERASE 17 U/L (10-37); BILIRUBIN,TOTAL 0.6 MG/DL (0.1-1.0); BLOOD UREA NITROGEN 47 MG/DL (7-18); CHLORIDE 98 MMOL/L (99-107); CREATININE 6.67 MG/DL (0.40-0.90); GLUCOSE 91 MG/DL (70-104); POTASSIUM 4.7 MMOL/L (3.5-5.1); SODIUM 136 MMOL/L (135-145); eGFR 6 ML/MIN
--- NOTE | 2022-05-24 06:20 | NUR ---
Patient in room [facility] 360. I have received report from MONIQUE Wilson and had the opportunity to ask questions and assume patient care.
--- NOTE | 2022-05-24 06:26 | NUR ---
Problems reprioritized. Patient report given, questions answered & plan of care reviewed with MONIQUE Huerta.
[2022-05-24 07:41] VITALS: BP 109/60
[2022-05-24] MEDS: K and/or MAG REPLACEMENT MC SCH (08:00)
[2022-05-24 08:19] LABS: PHOSPHORUS 4.6 MG/DL (2.3-4.5)
[2022-05-24] MEDS: aspirin 81mg, enteric-coated 1 TAB TABLET.DR PO SCH (08:48)
[2022-05-24] MEDS: CefTRIAXone/D5W-Rocephin 1gm 50 ML IV SCH (08:48)
[2022-05-24] MEDS: calcium carbonate 500mg chew tablet PO SCH ×2 (08:49→13:39)
[2022-05-24] MEDS: clopidogrel 75mg tablet PO SCH (08:49)
[2022-05-24] MEDS: metoprolol tartrate 25mg tablet PO SCH (08:50)
[2022-05-24] MEDS: guaiFENesin ER 600mg tablet PO SCH (08:50)
[2022-05-24] MEDS: ascorbic acid 500mg tablet PO SCH (08:50)
[2022-05-24] MEDS: sodium bicarbonate 650mg tablet PO SCH (08:50)
[2022-05-24] MEDS: MULTIVIT-MIN/FERROUS GLUCONATE 9 MG/15 ML LIQUID PO SCH (08:51)
[2022-05-24] MEDS: heparin, porcine 5000 units/ml vial SQ SCH (08:52)
[2022-05-24] MEDS: benzonatate 100mg capsule PO PRN (08:58)
[2022-05-24 09:43] LABS: PLATELET ESTIMATE NORMAL; TOTAL CELLS COUNTED 100
[2022-05-24 09:44] LABS: POLYCHROMASIA FEW; ROULEAUX 1+
[2022-05-24 10:00] VITALS: BP 98/60
[2022-05-24] MEDS ORDERED: AZIT250T2 PO (12:15)
[2022-05-24] MEDS ORDERED: ONDA-103 PO (12:15)
[2022-05-24] MEDS: ondansetron/PF 4mg/2ml inj IV PRN (13:39)
--- NOTE | 2022-05-24 14:00 | NUR ---
O2 Sat at rest on room air:_88__% If below 89%: Recovery O2 Sat at rest on _2__LPM:___%:___% via____NC (mask/nasal cannula, etc..) No further documentation is necessary. Addendum: 05/24/22 at 1506 by Deanna Solano RN Recovery 02 sat at rest on 2 LPM: 94%
--- NOTE | 2022-05-24 14:55 | NUR ---
DC inst provided to pt. IV DC'd, tip intact. All belongings sent w/pt. WC to vehicle.
== END 2022-05-24 14:53 | disposition home or self-care (01) | DRG 252 ==
LOC: ER 11:04 → ED HOLD 18:43 → SUR 3N 21:20
PROVIDERS: ADMIT Internal Medicine; ATTEND Internal Medicine
PROC: 5A1D70Z Performance of Urinary Filtration, Intermittent, Less than 6 Hours Per Day (ICD-10-PCS; principal; 2022-05-21)
PROC: 5A1D70Z Performance of Urinary Filtration, Intermittent, Less than 6 Hours Per Day (ICD-10-PCS; 2022-05-23)
PROC: 057Y3ZZ Dilation of Upper Vein, Percutaneous Approach (ICD-10-PCS; 2022-05-23)
PROC: B51W1ZZ Fluoroscopy of Dialysis Shunt/Fistula using Low Osmolar Contrast (ICD-10-PCS; 2022-05-23)
DX: T82.858A Stenosis of other vascular prosthetic devices, implants and grafts, initial encounter (principal); J15.6 Pneumonia due to other Gram-negative bacteria; N18.6 End stage renal disease; I12.0 Hypertensive chronic kidney disease with stage 5 chronic kidney disease or end stage renal disease; D64.9 Anemia, unspecified; E61.1 Iron deficiency; E78.5 Hyperlipidemia, unspecified; I25.10 Atherosclerotic heart disease of native coronary artery without angina pectoris; I48.91 Unspecified atrial fibrillation; M25.512 Pain in left shoulder; K21.9 Gastro-esophageal reflux disease without esophagitis; E73.9 Lactose intolerance, unspecified; Z60.2 Problems related to living alone; Z82.3 Family history of stroke; Z90.710 Acquired absence of both cervix and uterus; Z93.2 Ileostomy status; Z99.2 Dependence on renal dialysis; Z98.42 Cataract extraction status, left eye; Z98.41 Cataract extraction status, right eye; Z99.81 Dependence on supplemental oxygen; Z88.5 Allergy status to narcotic agent; Z88.2 Allergy status to sulfonamides; Z88.8 Allergy status to other drugs, medicaments and biological substances; Z79.899 Other long term (current) drug therapy; Z90.49 Acquired absence of other specified parts of digestive tract
CPT/HCPCS: 36415; 36902; 71045; 76937; 80053; 82607; 82728; 83540; 83550; 83605; 83735; 83880; 84100; 84484; 85007; 85025; 85610; 85730; 87040; 87081; 87502; 87503; 87635; 93005; 93306; 94760; 99152; 99153; 99285; A4620; A6258; C1725; C1769; C1894; C9803; G0378; J0696; J1644; J2250; J2405; J3010; J7030; J7040; Q4081; Q9967

== ENCOUNTER 2022-06-29 10:52 | Emergency (ER) | payer MEDICARE, OTHER ==
[~2022-06-29] VITALS: Ht 157.5 cm; Wt 81.8 kg
[~2022-06-29 10:52] MED LIST changes: +AZIT250T2 PO; -AZIT250T82 PO; -CARV-50 PO; +FOLI1TAB50 PO; -FURO80TA3 PO; -GUAI-692 PO; -HYDR-4069 PO; -LOSA100T57 PO; +METO25TA6 PO; +ONDA-103 PO; -PANT40TA54 PO; +SODI650T29 PO; +UBID10CA4 PO; -UBID200C18 PO
[2022-06-29 11:33] LABS: BASOPHILS # (AUTO) 0.1 X10'3 (0-0.2); BASOPHILS % (AUTO) 1.2 % (0-1); EOSINOPHILS % (AUTO) 0 % (0-6); HEMATOCRIT 27.9 % (35.0-45.0); HEMOGLOBIN 9.1 g/dl (12.0-16.0); LYMPHOCYTES # (AUTO) 0.6 X10'3 (1.1-4.8); LYMPHOCYTES % (AUTO) 12.5 % (21-51); MEAN CORPUSCULAR HEMOGLOBIN 30.3 PG (27.0-31.0); MEAN CORPUSCULAR HGB CONC 32.5 g/dL (33.0-36.5); MEAN CORPUSCULAR VOLUME 93.2 FL (78-98); MEAN PLATELET VOLUME 9.4 FL (7.4-10.4); MONOCYTES # (AUTO) 0.7 X10'3 (0-0.9); MONOCYTES % (AUTO) 14.1 % (2-12); NEUTROPHILS # (AUTO) 3.5 X10'3 (1.8-7.7); NEUTROPHILS % (AUTO) 72.2 % (42-75); PLATELET COUNT 150 X10'3 (140-440); RED CELL DISTRIBUTION WIDTH 18.5 % (11.5-14.5); WHITE BLOOD COUNT 4.8 X10'3 (4.5-11.0)
[2022-06-29 11:41] LABS: ALANINE AMINOTRANSFERASE 22 U/L (12-78); ALBUMIN 3.1 G/DL (3.4-5.0); ALBUMIN/GLOBULIN RATIO 0.8 (1.1-1.5); ALKALINE PHOSPHATASE 252 IU/L (46-116); ANION GAP 6 (8-16); ASPARTATE AMINO TRANSFERASE 20 U/L (10-37); BILIRUBIN,TOTAL 0.4 MG/DL (0.1-1.0); BLOOD UREA NITROGEN 11 MG/DL (7-18); BUN/CREATININE RATIO 2.5 (10.0-20.0); CALCIUM 8.4 MG/DL (8.5-10.1); CHLORIDE 98 MMOL/L (99-107); CREATININE 4.46 MG/DL (0.40-0.90); GLUCOSE 95 MG/DL (70-104); POTASSIUM 3.5 MMOL/L (3.5-5.1); SODIUM 136 MMOL/L (135-145); TOTAL CARBON DIOXIDE 31.8 MMOL/L (24-32); TOTAL PROTEIN 6.8 G/DL (6.4-8.2); eGFR 10 ML/MIN
[2022-06-29 15:18] VITALS: BP 142/62
== END 2022-06-29 15:21 | disposition home or self-care (01) ==
LOC: ER 10:52
DX: R68.84 Jaw pain (principal); R53.1 Weakness; R05.9 Cough, unspecified; M79.601 Pain in right arm; I11.0 Hypertensive heart disease with heart failure; Z90.49 Acquired absence of other specified parts of digestive tract; Z98.890 Other specified postprocedural states; Z88.1 Allergy status to other antibiotic agents; Z88.2 Allergy status to sulfonamides; Z88.5 Allergy status to narcotic agent; Z91.040 Latex allergy status
CPT/HCPCS: 36415; 71045; 71250; 80053; 83880; 84484; 85025; 93005; 99285

== ENCOUNTER 2023-06-11 09:15 | Inpatient (IN) | payer MEDICARE, OTHER ==
[~2023-06-11] VITALS: Ht 157.5 cm; Wt 90.0 kg
[2023-06-11] MEDS ORDERED: CefTRIAXone/D5W-Rocephin 1gm 50 ML IV ONE (10:20)
[2023-06-11] MEDS ORDERED: azithromycin/NS 500mg/250ml 250 ML IV ONE (10:30)
[2023-06-11 10:37] LABS: BASOPHILS % (AUTO) 0.5 % (0-1); EOSINOPHILS % (AUTO) 0 % (0-6); HEMATOCRIT 30.1 % (35.0-45.0); HEMOGLOBIN 9.9 g/dl (12.0-16.0); LYMPHOCYTES # (AUTO) 0.4 X10'3 (1.1-4.8); LYMPHOCYTES % (AUTO) 5.8 % (21-51); MEAN CORPUSCULAR HEMOGLOBIN 27.9 PG (27.0-31.0); MEAN CORPUSCULAR HGB CONC 32.8 g/dL (33.0-36.5); MEAN CORPUSCULAR VOLUME 85.1 FL (78-98); MONOCYTES # (AUTO) 0.6 X10'3 (0-0.9); MONOCYTES % (AUTO) 9.4 % (2-12); NEUTROPHILS # (AUTO) 5.3 X10'3 (1.8-7.7); NEUTROPHILS % (AUTO) 84.3 % (42-75); PLATELET COUNT 63 X10'3 (140-440); RED BLOOD COUNT 3.54 X10'6 (4.20-5.60); WHITE BLOOD COUNT 6.3 X10'3 (4.5-11.0)
[2023-06-11] MEDS ORDERED: piperacillin/tazo 4.5gm/100ml 100 ML IV ONE (10:45)
[2023-06-11] MEDS: acetaminophen 325mg tablet PO ONE (10:54)
[2023-06-11 10:56] LABS: ANION GAP 9 (8-16); BLOOD UREA NITROGEN 36 MG/DL (7-18); CALCIUM 8.6 MG/DL (8.5-10.1); CHLORIDE 100 MMOL/L (99-107); CREATININE 7.14 MG/DL (0.40-0.90); GLUCOSE 98 MG/DL (70-104); POTASSIUM 5.8 MMOL/L (3.5-5.1); SODIUM 138 MMOL/L (135-145); TOTAL CARBON DIOXIDE 28.6 MMOL/L (24-32); eCRCL 5 ML/MIN; eGFR 6 ML/MIN
[2023-06-11] MEDS: normal saline 500ml IV soln 500 ML IV ONE (11:03)
[2023-06-11] MEDS: CALCIUM GLUC 1gm/50ml NACL,iso 50 ML IV ONE (11:45)
[2023-06-11] MEDS: dextrose 50%-water 50ml dispensing syringe IV ONE (11:45)
[2023-06-11 11:50] LABS: PRO BRAIN NATRIURETIC PEPTIDE > 30000 PG/ML (0-450)
[2023-06-11] MEDS: insulin regular, human 10 units/0.1 ml syringe IV ONE (11:50)
[2023-06-11] MEDS: piperacillin/tazo 3.375gm/50ml 50 ML IV ONE (11:53)
[2023-06-11] MEDS: methylPREDNISolone sod succ 125mg/2ml vial IV ONE (13:19)
[2023-06-11] MEDS ORDERED: magnesium Cl slow-release 64mg tablet PO PRN (14:55)
[2023-06-11] MEDS ORDERED: mag hydrox/Alum hydrox/simeth 30ml oral suspension PO PRN (14:55)
[2023-06-11] MEDS ORDERED: magnesium hydroxide 30ml (MOM) UD suspension PO PRN (14:55)
[2023-06-11] MEDS ORDERED: potassium Cl 40MEQ/1/2NS 520ml 520 ML IV PRN (14:55)
[2023-06-11] MEDS ORDERED: potassium Cl 20 mEq SR tablet PO PRN ×2 (14:55)
[2023-06-11] MEDS: acetaminophen 325mg tablet PO PRN (15:08)
[2023-06-11] MEDS: heparin, porcine 5000 units/ml vial SQ SCH (16:09)
[2023-06-11 16:22] LABS: PHOSPHORUS 1.9 MG/DL (2.3-4.5)
[2023-06-11 16:33] LABS: MAGNESIUM 0.9 MG/DL (1.5-2.4)
[2023-06-11] MEDS ORDERED: sodium phosphate inj. 30 MMOL in dextrose 5%-water 250 ML IV ONE (16:40)
[2023-06-11] MEDS: magnesium 2GM in 50ml NS 50 ML IV PRN (17:28)
[2023-06-11] MEDS: sodium phosphate inj. 15 MMOL in dextrose 5%-water 250 ML IV ONE (17:29)
[2023-06-11] MEDS: magnesium 4gm in 100ml NS 100 ML IV PRN (19:39)
[2023-06-11] MEDS: K and/or MAG REPLACEMENT MC SCH (20:00)
[2023-06-11 23:00] VITALS: BP 152/79; PULSE 75; RESP 16; TEMP 97.3; O2SAT 95
[2023-06-12] VITALS (15 sets, daily range): BP systolic 95–160; BP diastolic 42–83; PULSE 63–75; RESP 12–18; TEMP 97.3–98.6; O2SAT 94–97
[2023-06-12] MEDS: vancomycin/NS 1 GM ADD-VANTAGE 250 ML X 1 DOSE IV ONE (03:18)
[2023-06-12] MEDS: VANCOMYCIN 750MG IV in NS 250 ML IV ONE (04:50)
[2023-06-12] MEDS ORDERED: normal saline 1000ml 250 ML IV PRN (06:40)
[2023-06-12] MEDS: heparin 1,000 units/ml 10ml inj IV ONE (06:40)
[2023-06-12 07:29] LABS: HEMOGLOBIN 9.4 g/dl (12.0-16.0); LYMPHOCYTES # (AUTO) 0.8 X10'3 (1.1-4.8); MONOCYTES # (AUTO) 0.7 X10'3 (0-0.9); NEUTROPHILS # (AUTO) 6.6 X10'3 (1.8-7.7)
[2023-06-12 07:31] LABS: BASOPHILS % (AUTO) 0.4 % (0-1); EOSINOPHILS % (AUTO) 0.1 % (0-6); HEMATOCRIT 28.5 % (35.0-45.0); LYMPHOCYTES % (AUTO) 9.7 % (21-51); MEAN CORPUSCULAR HEMOGLOBIN 28.3 PG (27.0-31.0); MEAN CORPUSCULAR VOLUME 85.5 FL (78-98); MEAN PLATELET VOLUME 10.5 FL (7.4-10.4); MONOCYTES % (AUTO) 8.4 % (2-12); NEUTROPHILS % (AUTO) 81.4 % (42-75); PLATELET COUNT 60 X10'3 (140-440); RED BLOOD COUNT 3.33 X10'6 (4.20-5.60); RED CELL DISTRIBUTION WIDTH 15.1 % (11.5-14.5); WHITE BLOOD COUNT 8.1 X10'3 (4.5-11.0)
[2023-06-12 07:56] LABS: ALANINE AMINOTRANSFERASE 49 U/L (12-78); ALBUMIN 2.6 G/DL (3.4-5.0); ALBUMIN/GLOBULIN RATIO 0.6 (1.1-1.5); ALKALINE PHOSPHATASE 160 IU/L (46-116); ANION GAP 11 (8-16); ASPARTATE AMINO TRANSFERASE 46 U/L (10-37); BILIRUBIN,TOTAL 0.7 MG/DL (0.1-1.0); BLOOD UREA NITROGEN 55 MG/DL (7-18); BUN/CREATININE RATIO 6.7 (10.0-20.0); CALCIUM 8.3 MG/DL (8.5-10.1); CHLORIDE 97 MMOL/L (99-107); CREATININE 8.27 MG/DL (0.40-0.90); GLUCOSE 123 MG/DL (70-104); SODIUM 135 MMOL/L (135-145); TOTAL CARBON DIOXIDE 26.8 MMOL/L (24-32); TOTAL PROTEIN 6.7 G/DL (6.4-8.2); eCRCL 4 ML/MIN; eGFR 5 ML/MIN
[2023-06-12 07:58] LABS: POTASSIUM 6.3 MMOL/L (3.5-5.1)
[2023-06-12] MEDS ORDERED: azithromycin/NS 500mg/250ml 250 ML IV ONE (08:00)
[2023-06-12] MEDS ORDERED: CefTRIAXone/D5W-Rocephin 1gm 50 ML IV SCH (08:00)
[2023-06-12 08:31] LABS: MAGNESIUM 3.2 MG/DL (1.5-2.4)
[2023-06-12] MEDS ORDERED: piperacillin/tazo 3.375gm/50ml 50 ML IV SCH (09:03)
[2023-06-12 09:05] LABS: PLATELET ESTIMATE DECREASED; TOTAL CELLS COUNTED 100
[2023-06-12 09:06] LABS: TEAR DROP CELLS FEW
[2023-06-12] MEDS ORDERED: METO25TA6 PO (10:23)
[2023-06-12] MEDS ORDERED: AMIO200T36 PO (10:27)
[2023-06-12] MEDS ORDERED: ISOS120T13 PO (10:29)
[2023-06-12] MEDS ORDERED: NITR0.4T51 SL (10:29)
[2023-06-12] MEDS ORDERED: PANT-47 PO (10:29)
[2023-06-12] MEDS: NUT.TX.IMP.RENAL FXN,LAC-REDUC (Nepro) 237 ML VANILLA PO SCH (13:00)
[2023-06-12] MEDS: LIDOcaine 1% (10mg/ml) 2ml vial SQ ONE (14:00)
[2023-06-12] MEDS: pantoprazole 40 MG vial IV SCH (14:30)
[2023-06-12] MEDS: traMADol 50MG tablet PO PRN (15:42)
[2023-06-12] MEDS: piperacillin/tazo 3.375gm/50ml 50 ML IV SCH (17:19)
[2023-06-12 18:12] LABS: MAGNESIUM 2.2 MG/DL (1.5-2.4); PHOSPHORUS 2.5 MG/DL (2.3-4.5); POTASSIUM 3.5 MMOL/L (3.5-5.1)
[2023-06-13] VITALS (8 sets, daily range): BP systolic 99–140; BP diastolic 54–70; PULSE 60–72; RESP 12–18; TEMP 97.2–97.7; O2SAT 93–100
[2023-06-13] MEDS: VANCOMYCIN LEVEL IV SCH (03:35)
[2023-06-13 03:49] LABS: ALANINE AMINOTRANSFERASE 39 U/L (12-78); ALBUMIN 2.2 G/DL (3.4-5.0); ALBUMIN/GLOBULIN RATIO 0.6 (1.1-1.5); ALKALINE PHOSPHATASE 119 IU/L (46-116); ANION GAP 7 (8-16); ASPARTATE AMINO TRANSFERASE 25 U/L (10-37); BILIRUBIN,TOTAL 0.5 MG/DL (0.1-1.0); BLOOD UREA NITROGEN 34 MG/DL (7-18); BUN/CREATININE RATIO 7.6 (10.0-20.0); CALCIUM 7.4 MG/DL (8.5-10.1); CHLORIDE 103 MMOL/L (99-107); CREATININE 4.49 MG/DL (0.40-0.90); GLUCOSE 79 MG/DL (70-104); POTASSIUM 4.5 MMOL/L (3.5-5.1); SODIUM 139 MMOL/L (135-145); TOTAL CARBON DIOXIDE 28.6 MMOL/L (24-32); TOTAL PROTEIN 6.2 G/DL (6.4-8.2); VANCOMYCIN,RANDOM 15.8 ug/mL (20.0-30.0); eCRCL 8 ML/MIN; eGFR 9 ML/MIN
[2023-06-13 07:07] LABS: EOSINOPHILS % (AUTO) 0 % (0-6); MEAN CORPUSCULAR HGB CONC 32.8 g/dL (33.0-36.5); MEAN PLATELET VOLUME 10.3 FL (7.4-10.4); MONOCYTES # (AUTO) 0.8 X10'3 (0-0.9); NEUTROPHILS # (AUTO) 4.8 X10'3 (1.8-7.7); WHITE BLOOD COUNT 6.6 X10'3 (4.5-11.0)
[2023-06-13 07:08] LABS: BASOPHILS # (AUTO) 0.1 X10'3 (0-0.2); BASOPHILS % (AUTO) 0.8 % (0-1); HEMATOCRIT 27.3 % (35.0-45.0); LYMPHOCYTES # (AUTO) 0.9 X10'3 (1.1-4.8); LYMPHOCYTES % (AUTO) 13.9 % (21-51); MEAN CORPUSCULAR HEMOGLOBIN 28.4 PG (27.0-31.0); MEAN CORPUSCULAR VOLUME 86.6 FL (78-98); MONOCYTES % (AUTO) 12.5 % (2-12); NEUTROPHILS % (AUTO) 72.8 % (42-75); PLATELET COUNT 54 X10'3 (140-440); RED BLOOD COUNT 3.16 X10'6 (4.20-5.60); RED CELL DISTRIBUTION WIDTH 15.3 % (11.5-14.5)
[2023-06-13] MEDS ORDERED: vancomycin/NS 1 GM ADD-VANTAGE 250 ML IV PRN (08:00)
[2023-06-13 08:18] LABS: PLATELET ESTIMATE DECREASED; TOTAL CELLS COUNTED 100
[2023-06-13 08:19] LABS: HYPOCHROMASIA 1+; POIKILOCYTOSIS FEW; POLYCHROMASIA FEW; ROULEAUX 1+
[2023-06-13] MEDS: CefTRIAXone 2gm/D5W 50ml BAG 50 ML IV SCH (12:10)
[2023-06-13 20:12] LABS: HBSAG SCREEN Negative (Negative)
[2023-06-14] VITALS (15 sets, daily range): BP systolic 105–143; BP diastolic 55–75; PULSE 60–78; RESP 12–18; TEMP 97–98.2; O2SAT 95–100
[2023-06-14 05:44] LABS: BASOPHILS % (AUTO) 0.8 % (0-1); EOSINOPHILS % (AUTO) 0 % (0-6); LYMPHOCYTES # (AUTO) 0.9 X10'3 (1.1-4.8); LYMPHOCYTES % (AUTO) 16.8 % (21-51); MEAN CORPUSCULAR HEMOGLOBIN 27.5 PG (27.0-31.0); MEAN CORPUSCULAR HGB CONC 32.3 g/dL (33.0-36.5); MEAN CORPUSCULAR VOLUME 85.4 FL (78-98); MEAN PLATELET VOLUME 11.1 FL (7.4-10.4); MONOCYTES # (AUTO) 0.9 X10'3 (0-0.9); MONOCYTES % (AUTO) 15.9 % (2-12); NEUTROPHILS # (AUTO) 3.7 X10'3 (1.8-7.7); NEUTROPHILS % (AUTO) 66.5 % (42-75); PLATELET COUNT 83 X10'3 (140-440); RED BLOOD COUNT 3.28 X10'6 (4.20-5.60); RED CELL DISTRIBUTION WIDTH 15.6 % (11.5-14.5); WHITE BLOOD COUNT 5.6 X10'3 (4.5-11.0)
[2023-06-14 05:56] LABS: ALANINE AMINOTRANSFERASE 28 U/L (12-78); ALBUMIN 2.3 G/DL (3.4-5.0); ALBUMIN/GLOBULIN RATIO 0.6 (1.1-1.5); ALKALINE PHOSPHATASE 149 IU/L (46-116); ANION GAP 10 (8-16); ASPARTATE AMINO TRANSFERASE 15 U/L (10-37); BILIRUBIN,TOTAL 0.6 MG/DL (0.1-1.0); BLOOD UREA NITROGEN 62 MG/DL (7-18); BUN/CREATININE RATIO 9.3 (10.0-20.0); CALCIUM 7.6 MG/DL (8.5-10.1); CHLORIDE 99 MMOL/L (99-107); CREATININE 6.67 MG/DL (0.40-0.90); GLUCOSE 87 MG/DL (70-104); SODIUM 136 MMOL/L (135-145); TOTAL CARBON DIOXIDE 27.2 MMOL/L (24-32); TOTAL PROTEIN 6.1 G/DL (6.4-8.2); VANCOMYCIN,RANDOM 15.2 ug/mL (20.0-30.0); eCRCL 6 ML/MIN; eGFR 6 ML/MIN
[2023-06-14] MEDS ORDERED: normal saline 1000ml 250 ML IV PRN (06:55)
[2023-06-14] MEDS: ondansetron/PF 4mg/2ml inj IV PRN (07:58)
[2023-06-14] MEDS ORDERED: morphine 4 MG/ML inj SYRINge IV PRN (10:35)
[2023-06-14] MEDS: morphine 2 MG/ML inj. syringe IV PRN (12:13)
[2023-06-14] MEDS: LIDOcaine 1% (10mg/ml) 2ml vial SQ ONE (12:28)
[2023-06-14] MEDS: heparin 1,000 units/ml 10ml inj IV ONE (12:29)
[2023-06-14] MEDS: EPOETIN ALFA-EPBX 20,000 UNIT/ML 1 ML MDV IV ONE (13:07)
[2023-06-14] MEDS: ceFAZolin inj. 3,000 MG in normal saline 100ml IV soln 100 ML IV SCH (15:33)
[2023-06-15 05:22] LABS: EOSINOPHILS % (AUTO) 0 % (0-6); HEMOGLOBIN 9.6 g/dl (12.0-16.0); MONOCYTES # (AUTO) 0.9 X10'3 (0-0.9)
[2023-06-15 05:24] LABS: BASOPHILS % (AUTO) 1.1 % (0-1); HEMATOCRIT 29.8 % (35.0-45.0); LYMPHOCYTES # (AUTO) 0.8 X10'3 (1.1-4.8); LYMPHOCYTES % (AUTO) 18.9 % (21-51); MEAN CORPUSCULAR HEMOGLOBIN 27.5 PG (27.0-31.0); MEAN CORPUSCULAR HGB CONC 32.3 g/dL (33.0-36.5); MEAN PLATELET VOLUME 9.4 FL (7.4-10.4); MONOCYTES % (AUTO) 19.9 % (2-12); NEUTROPHILS # (AUTO) 2.7 X10'3 (1.8-7.7); NEUTROPHILS % (AUTO) 60.1 % (42-75); PLATELET COUNT 90 X10'3 (140-440); RED CELL DISTRIBUTION WIDTH 15.3 % (11.5-14.5); WHITE BLOOD COUNT 4.5 X10'3 (4.5-11.0)
[2023-06-15 05:31] LABS: ALANINE AMINOTRANSFERASE 23 U/L (12-78); ALBUMIN 2.3 G/DL (3.4-5.0); ALBUMIN/GLOBULIN RATIO 0.6 (1.1-1.5); ALKALINE PHOSPHATASE 165 IU/L (46-116); ANION GAP 7 (8-16); ASPARTATE AMINO TRANSFERASE 13 U/L (10-37); BILIRUBIN,TOTAL 0.7 MG/DL (0.1-1.0); BLOOD UREA NITROGEN 29 MG/DL (7-18); BUN/CREATININE RATIO 7.3 (10.0-20.0); CALCIUM 7.7 MG/DL (8.5-10.1); CHLORIDE 102 MMOL/L (99-107); CREATININE 3.99 MG/DL (0.40-0.90); GLUCOSE 85 MG/DL (70-104); POTASSIUM 4.5 MMOL/L (3.5-5.1); SODIUM 139 MMOL/L (135-145); TOTAL CARBON DIOXIDE 29.7 MMOL/L (24-32); TOTAL PROTEIN 6.2 G/DL (6.4-8.2); VANCOMYCIN,RANDOM 11.8 ug/mL (20.0-30.0); eCRCL 9 ML/MIN; eGFR 11 ML/MIN
[2023-06-15 07:00] VITALS: BP 148/79; PULSE 74; RESP 18; TEMP 98.1; O2SAT 94; O2SAT 98
[2023-06-15 07:53] LABS: PLATELET ESTIMATE DECREASED; TOTAL CELLS COUNTED 100
[2023-06-15 07:54] LABS: ANISOCYTOSIS FEW; POLYCHROMASIA FEW; STOMATOCYTES FEW
[2023-06-15 11:00] VITALS: BP 141/68; PULSE 77; RESP 16; TEMP 98.5; O2SAT 97
[2023-06-15 18:00] VITALS: BP 143/69; PULSE 71; RESP 18; TEMP 97.7; O2SAT 99
[2023-06-15 19:00] VITALS: RESP 18; O2SAT 99
[2023-06-15 22:00] VITALS: BP 147/63; PULSE 69; RESP 16; TEMP 98.3; O2SAT 98
[2023-06-16 02:00] VITALS: BP 146/70; PULSE 71; RESP 20; TEMP 98.8; O2SAT 98
[2023-06-16 07:00] VITALS: RESP 22; O2SAT 99
[2023-06-16 07:04] VITALS: BP 114/72; PULSE 67; RESP 22; TEMP 97.5; O2SAT 99
[2023-06-16 07:04] LABS: BASOPHILS # (AUTO) 0.1 X10'3 (0-0.2); BASOPHILS % (AUTO) 1.5 % (0-1); EOSINOPHILS % (AUTO) 0 % (0-6); HEMATOCRIT 28.7 % (35.0-45.0); HEMOGLOBIN 9.3 g/dl (12.0-16.0); LYMPHOCYTES # (AUTO) 1.3 X10'3 (1.1-4.8); LYMPHOCYTES % (AUTO) 22.9 % (21-51); MEAN CORPUSCULAR HEMOGLOBIN 27.4 PG (27.0-31.0); MEAN CORPUSCULAR HGB CONC 32.6 g/dL (33.0-36.5); MEAN PLATELET VOLUME 8.8 FL (7.4-10.4); MONOCYTES # (AUTO) 0.9 X10'3 (0-0.9); MONOCYTES % (AUTO) 16.5 % (2-12); NEUTROPHILS # (AUTO) 3.2 X10'3 (1.8-7.7); NEUTROPHILS % (AUTO) 59.1 % (42-75); PLATELET COUNT 97 X10'3 (140-440); RED BLOOD COUNT 3.41 X10'6 (4.20-5.60); RED CELL DISTRIBUTION WIDTH 15.3 % (11.5-14.5); WHITE BLOOD COUNT 5.5 X10'3 (4.5-11.0)
[2023-06-16 07:22] LABS: ALANINE AMINOTRANSFERASE 52 U/L (12-78); ALBUMIN 2.2 G/DL (3.4-5.0); ALBUMIN/GLOBULIN RATIO 0.6 (1.1-1.5); ALKALINE PHOSPHATASE 219 IU/L (46-116); ANION GAP 8 (8-16); ASPARTATE AMINO TRANSFERASE 42 U/L (10-37); BILIRUBIN,TOTAL 0.6 MG/DL (0.1-1.0); BLOOD UREA NITROGEN 47 MG/DL (7-18); BUN/CREATININE RATIO 7.4 (10.0-20.0); CALCIUM 7.6 MG/DL (8.5-10.1); CHLORIDE 101 MMOL/L (99-107); CREATININE 6.39 MG/DL (0.40-0.90); GLUCOSE 84 MG/DL (70-104); POTASSIUM 4.6 MMOL/L (3.5-5.1); SODIUM 137 MMOL/L (135-145); TOTAL CARBON DIOXIDE 28.5 MMOL/L (24-32); TOTAL PROTEIN 6.1 G/DL (6.4-8.2); VANCOMYCIN,RANDOM 10.4 ug/mL (20.0-30.0); eCRCL 6 ML/MIN; eGFR 6 ML/MIN
[2023-06-16 08:57] VITALS: RESP 15; O2SAT 93
[2023-06-16 11:45] VITALS: BP 145/64; PULSE 70; RESP 18; TEMP 97.4; O2SAT 96
[2023-06-17] MEDS ORDERED: cefazolin 2gm/D5W 100mL 100 ML IV SCH (15:00)
== END 2023-06-16 12:36 | disposition home health service (06) | DRG 871 ==
LOC: ER 09:15 → UNDOADMIN 12:51 → ED HOLD 12:51 → PCU 3S 22:05
PROVIDERS: ADMIT Family Medicine; ATTEND Family Medicine
PROC: 5A1D70Z Performance of Urinary Filtration, Intermittent, Less than 6 Hours Per Day (ICD-10-PCS; principal; 2023-06-12)
PROC: 5A1D70Z Performance of Urinary Filtration, Intermittent, Less than 6 Hours Per Day (ICD-10-PCS; 2023-06-14)
DX: A40.8 Other streptococcal sepsis (principal); J18.9 Pneumonia, unspecified organism; N18.6 End stage renal disease; I12.0 Hypertensive chronic kidney disease with stage 5 chronic kidney disease or end stage renal disease; K51.90 Ulcerative colitis, unspecified, without complications; I25.10 Atherosclerotic heart disease of native coronary artery without angina pectoris; I48.91 Unspecified atrial fibrillation; J84.10 Pulmonary fibrosis, unspecified; E87.5 Hyperkalemia; Z20.822 Contact with and (suspected) exposure to COVID-19; M25.511 Pain in right shoulder; L29.9 Pruritus, unspecified; E78.5 Hyperlipidemia, unspecified; Z99.81 Dependence on supplemental oxygen; Z99.2 Dependence on renal dialysis; Z95.5 Presence of coronary angioplasty implant and graft; Z90.710 Acquired absence of both cervix and uterus; Z88.5 Allergy status to narcotic agent; Z88.8 Allergy status to other drugs, medicaments and biological substances; Z79.899 Other long term (current) drug therapy; Z90.49 Acquired absence of other specified parts of digestive tract; Z93.2 Ileostomy status; Z88.2 Allergy status to sulfonamides; Z88.6 Allergy status to analgesic agent; Z88.1 Allergy status to other antibiotic agents; Z91.011 Allergy to milk products
CPT/HCPCS: 36415; 71045; 73030; 80048; 80053; 80202; 82948; 83605; 83735; 83880; 84100; 84132; 84145; 84484; 85007; 85025; 87040; 87077; 87081; 87186; 87340; 87502; 87503; 87811; 93005; 93306; 96365; 96375; 97116; 97161; 97530; 99285; A4371; A4421; A6260; A6449; C9113; E1594; G0257; G0378; J0610; J0690; J0696; J1644; J1815; J2270; J2405; J2543; J2930; J3370; J3475; J3490; J7030; J7040; J7050; J7060; Q4081

== ENCOUNTER 2023-07-07 11:52 | Inpatient (IN) | payer MEDICARE, OTHER ==
[2023-07-07] VITALS (9 sets, daily range): BP systolic 111–166; BP diastolic 53–77; PULSE 69–78; RESP 11–18; TEMP 97.5–98; O2SAT 99
[~2023-07-07] VITALS: Ht 157.5 cm; Wt 94.0 kg
[~2023-07-07 11:52] MED LIST changes: -ASPI-500 PO; -AZIT250T2 PO; -CLOP75TA15 PO
[2023-07-07 12:24] LABS: BASOPHILS # (AUTO) 0.1 X10'3 (0-0.2); BASOPHILS % (AUTO) 1.3 % (0-1); EOSINOPHILS % (AUTO) 0 % (0-6); HEMATOCRIT 23.2 % (35.0-45.0); HEMOGLOBIN 7.3 g/dl (12.0-16.0); LYMPHOCYTES # (AUTO) 1.3 X10'3 (1.1-4.8); LYMPHOCYTES % (AUTO) 27.7 % (21-51); MEAN CORPUSCULAR HEMOGLOBIN 28.2 PG (27.0-31.0); MEAN CORPUSCULAR HGB CONC 31.5 g/dL (33.0-36.5); MEAN CORPUSCULAR VOLUME 89.4 FL (78-98); MEAN PLATELET VOLUME 8.9 FL (7.4-10.4); MONOCYTES # (AUTO) 0.6 X10'3 (0-0.9); MONOCYTES % (AUTO) 12.2 % (2-12); NEUTROPHILS # (AUTO) 2.8 X10'3 (1.8-7.7); NEUTROPHILS % (AUTO) 58.8 % (42-75); PLATELET COUNT 214 X10'3 (140-440); RED CELL DISTRIBUTION WIDTH 18.1 % (11.5-14.5); WHITE BLOOD COUNT 4.8 X10'3 (4.5-11.0)
[2023-07-07 12:43] LABS: ALBUMIN 2.7 G/DL (3.4-5.0); ANION GAP 9 (8-16); BLOOD UREA NITROGEN 31 MG/DL (7-18); BUN/CREATININE RATIO 5.2 (10.0-20.0); CALCIUM 8.4 MG/DL (8.5-10.1); CHLORIDE 99 MMOL/L (99-107); CREATININE 5.98 MG/DL (0.40-0.90); GLUCOSE 124 MG/DL (70-104); POTASSIUM 4.6 MMOL/L (3.5-5.1); PRO BRAIN NATRIURETIC PEPTIDE 13352 PG/ML (0-450); SODIUM 137 MMOL/L (135-145); TOTAL CARBON DIOXIDE 29.4 MMOL/L (24-32); eCRCL 6 ML/MIN; eGFR 7 ML/MIN
[2023-07-07] MEDS ORDERED: potassium Cl 20 mEq SR tablet PO PRN ×2 (15:10)
[2023-07-07] MEDS ORDERED: magnesium 2GM in 50ml NS 50 ML IV PRN (15:10)
[2023-07-07] MEDS ORDERED: potassium Cl 40MEQ/1/2NS 520ml 520 ML IV PRN (15:10)
[2023-07-07] MEDS ORDERED: magnesium 4gm in 100ml NS 100 ML IV PRN (15:10)
[2023-07-07] MEDS ORDERED: ondansetron/PF 4mg/2ml inj IV PRN (15:10)
[2023-07-07] MEDS ORDERED: mag hydrox/Alum hydrox/simeth 30ml oral suspension PO PRN (15:10)
[2023-07-07] MEDS ORDERED: TRAZ-251 PO (18:07)
[2023-07-07] MEDS ORDERED: PANT40TA54 PO (18:07)
[2023-07-07] MEDS ORDERED: ISOS30TA84 PO (18:07)
[2023-07-07] MEDS ORDERED: APIX5TAB3 PO (18:07)
[2023-07-07] MEDS ORDERED: NITR0.4T48 SL (18:07)
[2023-07-07] MEDS: acetaminophen 325mg tablet PO PRN (18:45)
[2023-07-07] MEDS: K and/or MAG REPLACEMENT MC SCH (20:00)
[2023-07-07] MEDS: docusate sod 100mg capsule PO SCH (20:00)
[2023-07-07] MEDS ORDERED: CYAN250010 PO (22:57)
[2023-07-07] MEDS ORDERED: CRAN250C2 PO (22:57)
[2023-07-07] MEDS ORDERED: VIT1TAB.18 (22:57)
[2023-07-07] MEDS ORDERED: ACET-2119 PO (22:57)
[2023-07-07] MEDS ORDERED: ACET600C PO (22:57)
[2023-07-07] MEDS ORDERED: [UNRECOGNIZED DRUG - OTHER] (23:00)
[2023-07-07] MEDS ORDERED: TRAM50TA2 PO (23:16)
[2023-07-07] MEDS ORDERED: acetaminophen 325mg tablet PO PRN (23:20)
[2023-07-07] MEDS: traMADol 50MG tablet PO PRN (23:49)
[2023-07-08] VITALS (17 sets, daily range): BP systolic 103–165; BP diastolic 53–76; PULSE 60–76; RESP 12–20; TEMP 97.3–98.4; O2SAT 91–100
[2023-07-08] MEDS: traZODone 50mg tablet PO SCH (00:39)
[2023-07-08 06:32] LABS: EOSINOPHILS % (AUTO) 0 % (0-6); HEMATOCRIT 25.2 % (35.0-45.0); HEMOGLOBIN 8.2 g/dl (12.0-16.0); LYMPHOCYTES # (AUTO) 1.3 X10'3 (1.1-4.8); LYMPHOCYTES % (AUTO) 38.5 % (21-51); MEAN CORPUSCULAR HEMOGLOBIN 28.1 PG (27.0-31.0); MEAN CORPUSCULAR HGB CONC 32.6 g/dL (33.0-36.5); MEAN CORPUSCULAR VOLUME 86.2 FL (78-98); MEAN PLATELET VOLUME 8.8 FL (7.4-10.4); MONOCYTES # (AUTO) 0.5 X10'3 (0-0.9); MONOCYTES % (AUTO) 13.7 % (2-12); NEUTROPHILS # (AUTO) 1.6 X10'3 (1.8-7.7); NEUTROPHILS % (AUTO) 46.8 % (42-75); PLATELET COUNT 177 X10'3 (140-440); RED BLOOD COUNT 2.92 X10'6 (4.20-5.60); RED CELL DISTRIBUTION WIDTH 16.6 % (11.5-14.5); WHITE BLOOD COUNT 3.5 X10'3 (4.5-11.0)
[2023-07-08 06:55] LABS: ALBUMIN 2.3 G/DL (3.4-5.0); ALBUMIN/GLOBULIN RATIO 0.5 (1.1-1.5); ALKALINE PHOSPHATASE 200 IU/L (46-116); ANION GAP 6 (8-16); ASPARTATE AMINO TRANSFERASE 12 U/L (10-37); BILIRUBIN,TOTAL 0.9 MG/DL (0.1-1.0); BLOOD UREA NITROGEN 36 MG/DL (7-18); BUN/CREATININE RATIO 5.2 (10.0-20.0); CALCIUM 7.8 MG/DL (8.5-10.1); CHLORIDE 102 MMOL/L (99-107); CREATININE 6.93 MG/DL (0.40-0.90); GLUCOSE 72 MG/DL (70-104); MAGNESIUM 1.7 MG/DL (1.5-2.4); POTASSIUM 5.1 MMOL/L (3.5-5.1); SODIUM 138 MMOL/L (135-145); TOTAL CARBON DIOXIDE 29.8 MMOL/L (24-32); TOTAL PROTEIN 6.6 G/DL (6.4-8.2); eCRCL 5 ML/MIN; eGFR 6 ML/MIN
[2023-07-08 06:58] LABS: ALANINE AMINOTRANSFERASE < 6 U/L (12-78)
[2023-07-08] MEDS ORDERED: non-formulary drug (Ubidecarenone (Co Q-10) 1 CAP) PO SCH (08:00)
[2023-07-08] MEDS: ascorbic acid 500mg tablet PO SCH (09:12)
[2023-07-08] MEDS: calcium carbonate 500mg chew tablet PO SCH (09:12)
[2023-07-08] MEDS: cyanocobalamin 500mcg tablet PO SCH (09:12)
[2023-07-08] MEDS: metoprolol tartrate 25mg tablet PO SCH (09:13)
[2023-07-08] MEDS: atorvastatin 20mg tablet PO SCH (09:14)
[2023-07-08] MEDS: sodium bicarbonate 650mg tablet PO SCH (09:14)
[2023-07-08] MEDS: pantoprazole 40mg Tablet.DR PO SCH (09:14)
[2023-07-08] MEDS: isosorbide mononitrate 30mg tab.SR.24H PO SCH (09:14)
[2023-07-08] MEDS: apixaban 5mg tablet PO SCH (09:14)
[2023-07-08] MEDS: multivitamins, therapeutics tablet PO SCH (09:14)
[2023-07-08] MEDS: acetylcysteine 200 MG/ml 4ml vial PO SCH (10:06)
[2023-07-08 11:30] LABS: % IRON SATURATION 75 % (11-46); IRON 191 UG/DL (49-151); TOTAL IRON BINDING CAPACITY 254 UG/DL (259-388)
[2023-07-08] MEDS: ondansetron 4mg rapidly disintigrating tab PO PRN (11:33)
[2023-07-08] MEDS: LIDOcaine 1% (10mg/ml) 2ml vial SQ ONE (11:41)
[2023-07-08 12:30] LABS: FERRITIN 1526 NG/ML (8-252)
[2023-07-08] MEDS: EPOETIN ALFA-EPBX 20,000 UNIT/ML 1 ML MDV IV ONE (12:39)
[2023-07-08] MEDS: heparin 1,000 units/ml 10ml inj IV ONE (12:41)
[2023-07-08] MEDS: heparin 1,000unit/ml 10ml vial 10 ML IV ONE (12:42)
[2023-07-08] MEDS: heparin 1,000 units/ml 10ml inj HE ONE ×2 (12:42)
[2023-07-09] VITALS (7 sets, daily range): BP systolic 123–172; BP diastolic 56–78; PULSE 62–74; RESP 14–18; TEMP 98.1–98.2; O2SAT 93–98
[2023-07-09 07:04] LABS: BASOPHILS # (AUTO) 0.1 X10'3 (0-0.2); BASOPHILS % (AUTO) 1.6 % (0-1); EOSINOPHILS % (AUTO) 0 % (0-6); HEMOGLOBIN 8.8 g/dl (12.0-16.0); LYMPHOCYTES # (AUTO) 1.3 X10'3 (1.1-4.8); LYMPHOCYTES % (AUTO) 36.1 % (21-51); MEAN CORPUSCULAR HEMOGLOBIN 28.5 PG (27.0-31.0); MEAN CORPUSCULAR HGB CONC 32.6 g/dL (33.0-36.5); MEAN CORPUSCULAR VOLUME 87.3 FL (78-98); MEAN PLATELET VOLUME 8.5 FL (7.4-10.4); MONOCYTES # (AUTO) 0.5 X10'3 (0-0.9); MONOCYTES % (AUTO) 14.3 % (2-12); NEUTROPHILS # (AUTO) 1.8 X10'3 (1.8-7.7); PLATELET COUNT 180 X10'3 (140-440); RED CELL DISTRIBUTION WIDTH 17.8 % (11.5-14.5); WHITE BLOOD COUNT 3.7 X10'3 (4.5-11.0)
[2023-07-09 07:30] LABS: ALBUMIN 2.4 G/DL (3.4-5.0); ALBUMIN/GLOBULIN RATIO 0.5 (1.1-1.5); ALKALINE PHOSPHATASE 193 IU/L (46-116); ANION GAP 8 (8-16); ASPARTATE AMINO TRANSFERASE 11 U/L (10-37); BILIRUBIN,TOTAL 0.7 MG/DL (0.1-1.0); BLOOD UREA NITROGEN 32 MG/DL (7-18); BUN/CREATININE RATIO 5.1 (10.0-20.0); CALCIUM 8.2 MG/DL (8.5-10.1); CHLORIDE 101 MMOL/L (99-107); CREATININE 6.29 MG/DL (0.40-0.90); GLUCOSE 81 MG/DL (70-104); MAGNESIUM 1.7 MG/DL (1.5-2.4); SODIUM 138 MMOL/L (135-145); TOTAL CARBON DIOXIDE 29.2 MMOL/L (24-32); TOTAL PROTEIN 6.9 G/DL (6.4-8.2); eCRCL 6 ML/MIN; eGFR 6 ML/MIN
[2023-07-09 07:43] LABS: ALANINE AMINOTRANSFERASE < 6 U/L (12-78)
[2023-07-09] MEDS ORDERED: LOP25T PO (12:22)
[2023-07-11 05:20] LABS: HBSAG SCREEN Negative (Negative)
== END 2023-07-09 14:13 | disposition home health service (06) | DRG 811 ==
LOC: ER 11:53 → ED HOLD 15:18 → EDBEDREQ 20:56 → PCU 3S 22:15
PROVIDERS: ADMIT Family Medicine; ATTEND Family Medicine
PROC: 30233N1 Transfusion of Nonautologous Red Blood Cells into Peripheral Vein, Percutaneous Approach (ICD-10-PCS; principal; 2023-07-07)
PROC: 5A1D70Z Performance of Urinary Filtration, Intermittent, Less than 6 Hours Per Day (ICD-10-PCS; 2023-07-08)
DX: D64.9 Anemia, unspecified (principal); N18.6 End stage renal disease; I12.0 Hypertensive chronic kidney disease with stage 5 chronic kidney disease or end stage renal disease; I95.1 Orthostatic hypotension; Z66 Do not resuscitate; M48.02 Spinal stenosis, cervical region; J84.112 Idiopathic pulmonary fibrosis; I48.91 Unspecified atrial fibrillation; I25.10 Atherosclerotic heart disease of native coronary artery without angina pectoris; E78.5 Hyperlipidemia, unspecified; Z99.2 Dependence on renal dialysis; Z93.3 Colostomy status; Z90.710 Acquired absence of both cervix and uterus; Z90.49 Acquired absence of other specified parts of digestive tract; Z87.442 Personal history of urinary calculi; Z86.16 Personal history of COVID-19; Z79.899 Other long term (current) drug therapy; Z79.01 Long term (current) use of anticoagulants; Z88.5 Allergy status to narcotic agent; Z88.2 Allergy status to sulfonamides; Z88.1 Allergy status to other antibiotic agents; Z91.011 Allergy to milk products; Z98.61 Coronary angioplasty status
CPT/HCPCS: 36415; 36430; 71045; 80048; 80053; 82728; 83540; 83550; 83735; 83880; 84484; 85025; 86870; 86880; 86885; 86900; 86901; 86922; 87081; 87340; 93005; 97110; 97161; 97530; 99285; A4615; A6258; A6449; E1594; G0257; G0378; J3490; J7030; P9016; Q4081